=== PATIENT | female | born 1930 | race Two or more races ===

== ENCOUNTER 2017-08-07 16:57 | Inpatient (IN) | payer MEDICAID, MEDICARE ==
[~2017-08-07] VITALS: Ht 149.9 cm; Wt 67.1 kg
[2017-08-07 18:24] VITALS: BP 167/58
--- NOTE | 2017-08-07 18:25 | Emergency Room Report ---
History of Present Illness General Chief Complaint: Flu Like Symptoms Source: Patient, Family Member Present Illness HPI 86-year-old female, history of diabetes, hypertension, dementia, presenting with one week of cough and generalized weakness. History is mostly obtained by daughter at bedside. Sick the patient not eating much. Has had a cough productive with yellow sputum. Allergies: Coded Allergies: No Known Allergies (Unverified , 08/07/17) Patient History Past Medical History: see triage record Past Surgical History: none Pertinent Family History: none Reviewed Nursing Documentation: PMH: Agreed, PSxH: Agreed Nursing Documentation-PMH Past Medical History: No History, Except For Hx Hypertension: Yes Hx Diabetes: Yes Review of Systems All Other Systems: negative except mentioned in HPI Physical Exam Vital Signs Date Time Temp Pulse Resp B/P (MAP) Pulse Ox O2 Delivery O2 Flow Rate FiO2 08/07/17 17:06 97.9 90 18 135/79 90 Room Air Sp02 EP Interpretation: abnormal General Appearance: alert, GCS 15, non-toxic, mild distress Head: normocephalic, atraumatic Eyes: bilateral eye normal inspection, bilateral eye PERRL, bilateral eye EOMI ENT: normal ENT inspection, normal pharynx, normal voice, moist mucus membranes Neck: normal inspection, full range of motion, supple Respiratory: no retraction, respiratory distress, speaking full sentences, other - +rhonchi b/l, chest symmetrical Cardiovascular #1: normal inspection, regular rate, rhythm, no edema, normal capillary refill Cardiovascular #2: 2+ radial (R), 2+ radial (L) Gastrointestinal: normal inspection, non tender, soft, non-distended, no guarding Musculoskeletal: normal inspection, back normal, normal range of motion, non- tender Neurologic: normal inspection, alert, oriented x3, responsive, motor strength/ tone normal, sensory intact, speech normal Psychiatric: other - dementia Skin: normal inspection, normal color, no rash, warm/dry, well hydrated, normal turgor Medical Decision Making Diagnostic Impression: Primary Impression: Influenza-like symptoms Additional Impressions: Pneumonia Hypoxia ER Course 86-year-old female with fever chills cough for one week DDX: Viral URI vs. pneumonia Plan: Labs, chest x-ray ER course: Continues to be in mild/moderate respiratory distress. hypoxic on RA 90 given IV abx for possible pna cannot r/o L side lactic acid elevated. cannot give full boluses due to unknown heart fxn Disposition: Patient is to be admitted to med-surg unit. D/w hospitalist. Dr Hoffman EKG Diagnostic Results EP Interpretation: Yes Rate: normal Rhythm: NSR ST Segments: T-wave inversions noted in lead V2 and aVL ASA given to patient: No Rhythm Strip EP Interpretation: Yes Rate: 80 Rhythm: NSR, no PVCs, no ectopy Chest X-ray CXR: Ordered: Yes 1 view Indication: SOB EP interpretation: Yes Interpretation: Cardiomegaly, no definite infiltrate noted however cannot fully evaluate left lung base Impression: Cardiomegaly, cannot exclude left-sided pneumonia Electronically signed by Bill Valero MD Laboratory Tests Test 08/07/17 18:20 White Blood Count 11.5 K/UL (4.8-10.8) H Red Blood Count 4.02 M/UL (4.20-5.40) L Hemoglobin 11.6 G/DL (12.0-16.0) L Hematocrit 36.1 % (37.0-47.0) L Mean Corpuscular Volume 90 FL (80-99) Mean Corpuscular Hemoglobin 28.9 PG (27.0-31.0) Mean Corpuscular Hemoglobin Concent 32.2 G/DL (32.0-36.0) Red Cell Distribution Width 12.6 % (11.6-14.8) Platelet Count 272 K/UL (150-450) Mean Platelet Volume 5.4 FL (6.5-10.1) L Neutrophils (%) (Auto) 68.0 % (45.0-75.0) Lymphocytes (%) (Auto) 22.6 % (20.0-45.0) Monocytes (%) (Auto) 5.6 % (1.0-10.0) Eosinophils (%) (Auto) 2.3 % (0.0-3.0) Basophils (%) (Auto) 1.5 % (0.0-2.0) Sodium Level 140 MMOL/L (136-145) Potassium Level 4.5 MMOL/L (3.5-5.1) Chloride Level 104 MMOL/L (98-107) Carbon Dioxide Level 25 MMOL/L (21-32) Anion Gap 11 mmol/L (5-15) Blood Urea Nitrogen 16 mg/dL (7-18) Creatinine 1.5 MG/DL (0.55-1.30) H Estimate Glomerular Filtration Rate mL/min (>60) Glucose Level 155 MG/DL (74-106) H Lactic Acid Level 3.10 mmol/L (0.66-2.22) H Calcium Level 9.0 MG/DL (8.5-10.1) Total Bilirubin 0.2 MG/DL (0.2-1.0) Aspartate Amino Transferase (AST) 23 U/L (15-37) Alanine Aminotransferase (ALT) 16 U/L (12-78) Alkaline Phosphatase 90 U/L (46-116) Troponin I 0.014 ng/mL (0.000-0.056) Pro-B-Type Natriuretic Peptide 358 pg/mL (0-125) H Total Protein 7.7 G/DL (6.4-8.2) Albumin 2.7 G/DL (3.4-5.0) L Globulin 5.0 g/dL Albumin/Globulin Ratio 0.5 (1.0-2.7) L Microbiology Date/Time Source Procedure Growth Status 08/07/17 18:57 Nasal Nares Influenza Types A,B Antigen (NABEEL) - Final Complete Last Vital Signs Date Time Temp Pulse Resp B/P (MAP) Pulse Ox O2 Delivery O2 Flow Rate FiO2 08/07/17 17:06 97.9 90 18 135/79 90 Room Air Disposition: ADMITTED INPATIENT Condition: Serious Bill Valero M.D. Aug 07, 2017 18:25
[2017-08-07 18:43] LABS: BASOPHILS % (AUTO) 1.5 % (0.0-2.0); EOSINOPHILS % (AUTO) 2.3 % (0.0-3.0); HEMATOCRIT 36.1 % (37.0-47.0); HEMOGLOBIN 11.6 G/DL (12.0-16.0); LYMPHOCYTES % (AUTO) 22.6 % (20.0-45.0); MEAN CORPUSCULAR VOLUME 90 FL (80-99); MONOCYTES % (AUTO) 5.6 % (1.0-10.0); PLATELET COUNT 272 K/UL (150-450); RED BLOOD COUNT 4.02 M/UL (4.20-5.40); RED CELL DISTRIBUTION WIDTH 12.6 % (11.6-14.8); WHITE BLOOD COUNT 11.5 K/UL (4.8-10.8)
[2017-08-07 18:47] LABS: ANION GAP 11 mmol/L (5-15); BLOOD UREA NITROGEN 16 mg/dL (7-18); CARBON DIOXIDE 25 MMOL/L (21-32); CHLORIDE 104 MMOL/L (98-107); CREATININE 1.5 MG/DL (0.55-1.30); POTASSIUM 4.5 MMOL/L (3.5-5.1); SODIUM 140 MMOL/L (136-145)
[2017-08-07 18:57] LABS: ALANINE AMINOTRANSFERASE 16 U/L (12-78); ALBUMIN 2.7 G/DL (3.4-5.0); ALBUMIN/GLOBULIN RATIO 0.5 (1.0-2.7); ALKALINE PHOSPHATASE 90 U/L (46-116); ASPARTATE AMINO TRANSFERASE 23 U/L (15-37); BILIRUBIN,TOTAL 0.2 MG/DL (0.2-1.0)
[2017-08-07] MEDS ORDERED: Sodium Chloride 500ML 550 ML IV SCH (19:00)
[2017-08-07 20:00] VITALS: BP 155/59
[2017-08-07] MEDS ORDERED: METFORMIN HCL500 M1 ORAL (21:39)
[2017-08-07] MEDS ORDERED: LEVOTHYROXINE50 MCG ORAL (21:39)
[2017-08-07] MEDS ORDERED: LISINOPRIL20 MG ORAL (21:39)
[2017-08-07] MEDS ORDERED: LIPITOR80 MG ORAL (21:39)
[2017-08-07] MEDS ORDERED: RISPERDAL0.25 MG ORAL (21:39)
[2017-08-07] MEDS ORDERED: ALBUTEROL2.5 MG/3 M INH (21:39)
[2017-08-07] MEDS ORDERED: JANUVIA25 MG ORAL (21:39)
[2017-08-07] MEDS ORDERED: SINEMET 25/1001 EA ORAL (21:39)
[2017-08-07] MEDS ORDERED: NAMENDA10 MG ORAL (21:39)
[2017-08-07 21:55] VITALS: BP 138/64
[2017-08-07 22:08] LABS: APPEARANCE,URINE CLEAR; BILIRUBIN, URINE NEGATIVE (NEGATIVE); COLOR,URINE PALE YELLOW; GLUCOSE, URINE (UA) NEGATIVE (NEGATIVE); KETONES,URINE NEGATIVE (NEGATIVE); LEUKOCYTE ESTERASE ,URINE NEGATIVE (NEGATIVE); NITRITE,URINE NEGATIVE (NEGATIVE); PH,URINE 6 (4.5-8.0); PROTEIN,URINE NEGATIVE (NEGATIVE); UROBILINOGEN,URINE NORMAL MG/DL (0.0-1.0)
[2017-08-07 23:00] VITALS: BP 145/63
[2017-08-07] MEDS: Albuterol/Ipratropium 3ml neb HHN SCH (23:00)
[2017-08-07 23:31] VITALS: BP 150/73
[2017-08-08] MEDS: Azithromycin 250mg tab ORAL SCH ×2 (00:49→20:18)
[2017-08-08] MEDS: cefTRIAXone 1 GM in D5W 55 ML IVPB SCH ×2 (01:40→23:17)
--- NOTE | 2017-08-08 03:45 | History and Physical Report ---
DATE OF ADMISSION: 08/07/2017 CHIEF COMPLAINT: Pneumonia. HISTORY OF PRESENT ILLNESS: The patient is an 86-year-old female. She has a history of reactive airway disease, diabetes, and hypertension. She presented with complaints of one week of shortness of breath. According to family members, she has had cough and congestion for approximately last week. She had no fevers or chills, but has had a productive cough. Her shortness of breath did not improve despite breathing treatments at home. On evaluation here in the ER, she had a white count 11,000. X-ray evidence of possible left lower lobe infiltrate. She was hypoxic. The patient has been pancultured and has been started on broad-spectrum IV antibiotic therapy. She is now admitted for further evaluation and care. PAST MEDICAL HISTORY: As above. PAST SURGICAL HISTORY: Includes hernia surgery. CURRENT MEDICATIONS: Reconciled and reviewed. ALLERGIES: None. FAMILY HISTORY: None. SOCIAL HISTORY: Negative for tobacco, ethanol, or drugs. REVIEW OF SYSTEMS: Negative except for cough and shortness of breath. PHYSICAL EXAMINATION: VITAL SIGNS: Temperature 97.9, pulse 78, respirations 19, and blood pressure . GENERAL: The patient is well-developed female in no apparent distress. HEART: Regular rate and rhythm. LUNGS: Significant for bilateral rhonchi and rales. ABDOMEN: Soft, nontender, and nondistended. EXTREMITIES: Without clubbing or cyanosis. LABORATORY AND DIAGNOSTIC DATA: White count was 12,000. Sodium 140, creatinine 1.5. Lactic acid level is 3. Natriuretic peptide was 358. X-ray shows possible left lower lobe infiltrates. ASSESSMENT: This is a pleasant elderly female admitted with complaints of possible community-acquired pneumonia. 1. Pneumonia. 2. Hypoxemia. 3. Possible sepsis. 4. Diabetes. 5. Hypertension. PLAN: 1. IV antibiotics. 2. Supplemental oxygen. 3. Respiratory treatments. 4. Gentle hydration. 5. We will follow up influenza screen. 6. Continue outpatient diabetic and cardiac regimen. Roque Hoffman M.D. DR: [place] JOB#: [id number] CC:
[2017-08-08 04:00] VITALS: BP 137/57
[2017-08-08] MEDS: Albuterol/Ipratropium 3ml neb HHN SCH ×6 (04:50→23:00)
[2017-08-08] MEDS: sitaGLIPtin 25mg tab ORAL SCH (06:04)
[2017-08-08] MEDS: NovoLOG Insulin Flexpen SUBQ SCH ×4 (06:30→20:21)
[2017-08-08 07:36] LABS: BASOPHILS % (AUTO) 0.5 % (0.0-2.0); EOSINOPHILS % (AUTO) 1.5 % (0.0-3.0); HEMATOCRIT 32.2 % (37.0-47.0); LYMPHOCYTES % (AUTO) 23.2 % (20.0-45.0); MEAN CORPUSCULAR VOLUME 89 FL (80-99); MONOCYTES % (AUTO) 5.9 % (1.0-10.0); NEUTROPHILS % (AUTO) 68.9 % (45.0-75.0); PLATELET COUNT 298 K/UL (150-450); RED CELL DISTRIBUTION WIDTH 12.4 % (11.6-14.8); WHITE BLOOD COUNT 13.4 K/UL (4.8-10.8)
[2017-08-08 08:00] VITALS: BP 137/61
[2017-08-08 08:02] LABS: ALANINE AMINOTRANSFERASE 17 U/L (12-78); ALBUMIN 2.6 G/DL (3.4-5.0); ALBUMIN/GLOBULIN RATIO 0.5 (1.0-2.7); ALKALINE PHOSPHATASE 85 U/L (46-116); ANION GAP 8 mmol/L (5-15); ASPARTATE AMINO TRANSFERASE 21 U/L (15-37); BILIRUBIN,TOTAL 0.2 MG/DL (0.2-1.0); BLOOD UREA NITROGEN 15 mg/dL (7-18); CALCIUM 8.7 MG/DL (8.5-10.1); CARBON DIOXIDE 27 MMOL/L (21-32); CHLORIDE 104 MMOL/L (98-107); CREATININE 1.2 MG/DL (0.55-1.30); POTASSIUM 3.6 MMOL/L (3.5-5.1); SODIUM 139 MMOL/L (136-145)
--- NOTE | 2017-08-08 09:18 | General Progress Note ---
Assessment/Plan Problem List: (1) Influenza-like symptoms ICD Codes: R68.89 - Other general symptoms and signs SNOMED: 210420193 (2) Hypoxia ICD Codes: R09.02 - Hypoxemia SNOMED: 055449988 (3) Pneumonia ICD Codes: J18.9 - Pneumonia, unspecified organism SNOMED: 732331600 Status: stable, progressing Assessment/Plan cont abx resp care/o2 diabetes rx bp rx pulm and id eval dvt/stress ulcer prophylaxis Subjective ROS Limited/Unobtainable: No Constitutional: Reports: malaise, weakness HEENT: Reports: no symptoms Cardiovascular: Reports: no symptoms Respiratory: Reports: cough, shortness of breath, sputum, wheezing Gastrointestinal/Abdominal: Reports: no symptoms Genitourinary: Reports: no symptoms Neurologic/Psychiatric: Reports: no symptoms Endocrine: Reports: no symptoms Hematologic/Lymphatic: Reports: no symptoms Allergies: Coded Allergies: No Known Allergies (Unverified , 08/07/17) All Systems: reviewed and negative except above Subjective no overnite events. still congested with some sob. better than last night. no fever or chills. no agitation. Objective Last 24 Hour Vital Signs Date Time Temp Pulse Resp B/P (MAP) Pulse Ox O2 Delivery O2 Flow Rate FiO2 08/08/17 08:00 98.8 73 18 137/61 94 Room Air 08/08/17 04:10 74 16 Room Air 08/08/17 04:00 98.2 78 19 137/57 95 Room Air 08/08/17 03:30 74 16 98 Room Air 08/08/17 03:30 78 20 99 Room Air 21 08/07/17 23:31 98.6 73 16 150/73 94 Room Air 08/07/17 23:10 97.9 71 22 145/63 96 Room Air 08/07/17 23:00 71 22 145/63 96 Room Air 08/07/17 21:55 75 18 138/64 95 Room Air 08/07/17 20:00 77 22 155/59 96 Room Air 08/07/17 18:25 90 18 Room Air 08/07/17 18:24 97.9 78 19 167/58 95 Room Air 08/07/17 17:06 97.9 90 18 135/79 90 Room Air Intake and Output 08/07/17 08/08/17 19:00 07:00 Intake Total 655 ml Balance 655 ml Intake Oral 300 ml IV Total 355 ml # Voids 3 Laboratory Tests 08/07/17 18:20: White Blood Count 11.5H, Red Blood Count 4.02L, Hemoglobin 11.6L, Hematocrit 36.1L, Mean Corpuscular Volume 90, Mean Corpuscular Hemoglobin 28.9, Mean Corpuscular Hemoglobin Concent 32.2, Red Cell Distribution Width 12.6, Platelet Count 272, Mean Platelet Volume 5.4L, Neutrophils (%) (Auto) 68.0, Lymphocytes ( %) (Auto) 22.6, Monocytes (%) (Auto) 5.6, Eosinophils (%) (Auto) 2.3, Basophils (%) (Auto) 1.5, Sodium Level 140, Potassium Level 4.5, Chloride Level 104, Carbon Dioxide Level 25, Anion Gap 11, Blood Urea Nitrogen 16, Creatinine 1.5H, Estimat Glomerular Filtration Rate , Glucose Level 155H, Lactic Acid Level 3.10H , Calcium Level 9.0, Total Bilirubin 0.2, Aspartate Amino Transf (AST/SGOT) 23, Alanine Aminotransferase (ALT/SGPT) 16, Alkaline Phosphatase 90, Troponin I 0.014, Pro-B-Type Natriuretic Peptide 358H, Total Protein 7.7, Albumin 2.7L, Globulin 5.0, Albumin/Globulin Ratio 0.5L 08/07/17 21:40: Urine Color Pale yellow, Urine Appearance Clear, Urine pH 6, Urine Specific [place] 1.010, Urine Protein Negative, Urine Glucose (UA) Negative, Urine Ketones Negative, Urine Occult Blood Negative, Urine Nitrite Negative, Urine Bilirubin Negative, Urine Urobilinogen Normal, Urine Leukocyte Esterase Negative 08/07/17 23:10: Lactic Acid Level 0.90 08/08/17 05:10: White Blood Count 13.4H, Red Blood Count 3.60L, Hemoglobin 11.0L, Hematocrit 32.2L, Mean Corpuscular Volume 89, Mean Corpuscular Hemoglobin 30.6, Mean Corpuscular Hemoglobin Concent 34.2, Red Cell Distribution Width 12.4, Platelet Count 298, Mean Platelet Volume 5.7L, Neutrophils (%) (Auto) 68.9, Lymphocytes ( %) (Auto) 23.2, Monocytes (%) (Auto) 5.9, Eosinophils (%) (Auto) 1.5, Basophils (%) (Auto) 0.5, Sodium Level 139, Potassium Level 3.6, Chloride Level 104, Carbon Dioxide Level 27, Anion Gap 8, Blood Urea Nitrogen 15, Creatinine 1.2, Estimat Glomerular Filtration Rate , Glucose Level 111H, Calcium Level 8.7, Total Bilirubin 0.2, Aspartate Amino Transf (AST/SGOT) 21, Alanine Aminotransferase (ALT/SGPT) 17, Alkaline Phosphatase 85, Total Protein 7.4, Albumin 2.6L, Globulin 4.8, Albumin/Globulin Ratio 0.5L Height (Feet): 4 Height (Inches): 11.00 Weight (Pounds): 148 General Appearance: WD/WN, alert Neck: supple Cardiovascular: normal peripheral pulses, normal rate, regular rhythm Respiratory/Chest: rhonchi - bilaterally Abdomen: normal bowel sounds, non tender, soft, no organomegaly Edema: no edema noted Arm (L), no edema noted Arm (R), no edema noted Leg (L), no edema noted Leg (R), no edema noted Pedal (L), no edema noted Pedal (R), no edema noted 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
[2017-08-08] MEDS: Memantine 10mg tab ORAL SCH ×2 (09:47→17:45)
[2017-08-08] MEDS: Lisinopril 20mg tab ORAL SCH (09:48)
[2017-08-08] MEDS: Levodopa/Carbidopa 10/100 tab ORAL SCH ×3 (09:55→17:45)
--- NOTE | 2017-08-08 10:27 | Diagnostic Imaging Report ---
Indication: Shortness of breath Technique: XRAY Chest 1v Comparison: 06/02/2011 Findings: Heart is enlarged. Aorta is ectatic and calcified. There is slight haziness of the pulmonary vascularity, possibly suggesting interstitial edema/fluid overload. There is biapical scarring, right greater than left. Possible scarring and traction bronchiectasis in the right upper lobe, similar to prior exam. There is patchy retrocardiac opacity which may be related to atelectasis. No large pleural effusion. No pneumothorax. Impression: Cardiomegaly and mild interstitial opacification/edema. Patchy retrocardiac atelectasis versus infiltrate. Follow-up exam recommended. Finding obtained via the emergency department however patient admitted to the hospital at time of dictation of final report.
[2017-08-08 11:58] VITALS: BP 130/68
--- NOTE | 2017-08-08 13:05 | Consultation ---
Consult Note Consult Note 86-year-old female with a history of reactive airway presented with complaints of one week of shortness of breath. According to family members, she has had cough and congestion with a productive cough. Her shortness of breath did not improve with home management. In the ER, she had a white count 11,000. Chest X-ray was notable for possible left lower lobe infiltrate. She was hypoxic and now admitted for further evaluation and care. PAST MEDICAL HISTORY: DM, HTN PAST SURGICAL HISTORY: Hernia surgery. CURRENT MEDICATIONS: reviewed. ALLERGIES: None. FAMILY HISTORY: None. SOCIAL HISTORY: Negative for tobacco, ethanol, or drugs. REVIEW OF SYSTEMS: reviewed PHYSICAL WDWN NAD clear breath sounds bilaterally without rhonchi or wheeze [id number] without MRG NABS nontender no HSM no CCE nonfocal Last 24 Hour Vital Signs Date Time Temp Pulse Resp B/P (MAP) Pulse Ox O2 Delivery O2 Flow Rate FiO2 08/08/17 11:58 98.4 83 20 130/68 95 Room Air 08/08/17 11:40 Room Air 21 08/08/17 11:40 78 16 98 Room Air 21 08/08/17 08:42 76 16 98 Room Air 21 08/08/17 08:00 98.8 73 18 137/61 94 Room Air 08/08/17 04:10 74 16 Room Air 21 08/08/17 04:00 98.2 78 19 137/57 95 Room Air 08/08/17 03:30 74 16 98 Room Air 21 08/08/17 03:30 78 20 99 Room Air 21 08/07/17 23:31 98.6 73 16 150/73 94 Room Air 08/07/17 23:10 97.9 71 22 145/63 96 Room Air 08/07/17 23:00 71 22 145/63 96 Room Air 08/07/17 21:55 75 18 138/64 95 Room Air 08/07/17 20:00 77 22 155/59 96 Room Air 08/07/17 18:25 90 18 Room Air 08/07/17 18:24 97.9 78 19 167/58 95 Room Air 08/07/17 17:06 97.9 90 18 135/79 90 Room Air Laboratory Tests Test 08/07/17 18:20 08/07/17 21:40 08/07/17 23:10 08/08/17 05:10 White Blood Count 11.5 K/UL (4.8-10.8) H 13.4 K/UL (4.8-10.8) H Red Blood Count 4.02 M/UL (4.20-5.40) L 3.60 M/UL (4.20-5.40) L Hemoglobin 11.6 G/DL (12.0-16.0) L 11.0 G/DL (12.0-16.0) L Hematocrit 36.1 % (37.0-47.0) L 32.2 % (37.0-47.0) L Mean Corpuscular Volume 90 FL (80-99) 89 FL (80-99) Mean Corpuscular Hemoglobin 28.9 PG (27.0-31.0) 30.6 PG (27.0-31.0) Mean Corpuscular Hemoglobin Concent 32.2 G/DL (32.0-36.0) 34.2 G/DL (32.0-36.0) Red Cell Distribution Width 12.6 % (11.6-14.8) 12.4 % (11.6-14.8) Platelet Count 272 K/UL (150-450) 298 K/UL (150-450) Mean Platelet Volume 5.4 FL (6.5-10.1) L 5.7 FL (6.5-10.1) L Neutrophils (%) (Auto) 68.0 % (45.0-75.0) 68.9 % (45.0-75.0) Lymphocytes (%) (Auto) 22.6 % (20.0-45.0) 23.2 % (20.0-45.0) Monocytes (%) (Auto) 5.6 % (1.0-10.0) 5.9 % (1.0-10.0) Eosinophils (%) (Auto) 2.3 % (0.0-3.0) 1.5 % (0.0-3.0) Basophils (%) (Auto) 1.5 % (0.0-2.0) 0.5 % (0.0-2.0) Sodium Level 140 MMOL/L (136-145) 139 MMOL/L (136-145) Potassium Level 4.5 MMOL/L (3.5-5.1) 3.6 MMOL/L (3.5-5.1) Chloride Level 104 MMOL/L (98-107) 104 MMOL/L (98-107) Carbon Dioxide Level 25 MMOL/L (21-32) 27 MMOL/L (21-32) Anion Gap 11 mmol/L (5-15) 8 mmol/L (5-15) Blood Urea Nitrogen 16 mg/dL (7-18) 15 mg/dL (7-18) Creatinine 1.5 MG/DL (0.55-1.30) H 1.2 MG/DL (0.55-1.30) Estimat Glomerular Filtration Rate mL/min (>60) mL/min (>60) Glucose Level 155 MG/DL (74-106) H 111 MG/DL (74-106) H Lactic Acid Level 3.10 mmol/L (0.66-2.22) H 0.90 mmol/L (0.66-2.22) Calcium Level 9.0 MG/DL (8.5-10.1) 8.7 MG/DL (8.5-10.1) Total Bilirubin 0.2 MG/DL (0.2-1.0) 0.2 MG/DL (0.2-1.0) Aspartate Amino Transf (AST/SGOT) 23 U/L (15-37) 21 U/L (15-37) Alanine Aminotransferase (ALT/SGPT) 16 U/L (12-78) 17 U/L (12-78) Alkaline Phosphatase 90 U/L (46-116) 85 U/L (46-116) Troponin I 0.014 ng/mL (0.000-0.056) Pro-B-Type Natriuretic Peptide 358 pg/mL (0-125) H Total Protein 7.7 G/DL (6.4-8.2) 7.4 G/DL (6.4-8.2) Albumin 2.7 G/DL (3.4-5.0) L 2.6 G/DL (3.4-5.0) L Globulin 5.0 g/dL 4.8 g/dL Albumin/Globulin Ratio 0.5 (1.0-2.7) L 0.5 (1.0-2.7) L Urine Color Pale yellow Urine Appearance Clear Urine pH 6 (4.5-8.0) Urine Specific [place] 1.010 (1.005-1.035) Urine Protein Negative (NEGATIVE) Urine Glucose (UA) Negative (NEGATIVE) Urine Ketones Negative (NEGATIVE) Urine Occult Blood Negative (NEGATIVE) Urine Nitrite Negative (NEGATIVE) Urine Bilirubin Negative (NEGATIVE) Urine Urobilinogen Normal MG/DL (0.0-1.0) Urine Leukocyte Esterase Negative (NEGATIVE) IMPRESSION pneumonia bronchospasm, acute diabetes hypertension possible pulmonary edema leukocytosis possible sepsis anemia PLAN care noted IV antibiotics respiratory care supportive care suction as needed oxygen therapy follow up imaging impression, plan, and exam edited and reviewed in detail care discussed with SHANNAN HANEY Aug 08, 2017 13:05
[2017-08-08 16:00] VITALS: BP 146/68
[2017-08-08] MEDS: metFORMIN 500mg tab ORAL SCH (17:05)
[2017-08-08 19:46] VITALS: BP 155/71
[2017-08-08] MEDS: Heparin 5000 units/ml inj SUBQ SCH (23:18)
[2017-08-09] VITALS: BP 148/75
[2017-08-09] MEDS: Albuterol/Ipratropium 3ml neb HHN SCH ×6 (03:00→22:37)
[2017-08-09 04:00] VITALS: BP 140/68
[2017-08-09] MEDS: sitaGLIPtin 25mg tab ORAL SCH (06:30)
[2017-08-09] MEDS: NovoLOG Insulin Flexpen SUBQ SCH ×4 (06:39→21:19)
[2017-08-09 08:05] VITALS: BP 131/55
[2017-08-09] MEDS: Levodopa/Carbidopa 10/100 tab ORAL SCH ×3 (08:32→17:35)
[2017-08-09] MEDS: Heparin 5000 units/ml inj SUBQ SCH ×2 (08:35→21:19)
[2017-08-09] MEDS: metFORMIN 500mg tab ORAL SCH ×2 (08:40→17:35)
[2017-08-09] MEDS: Memantine 10mg tab ORAL SCH ×2 (08:42→17:35)
[2017-08-09] MEDS: Lisinopril 20mg tab ORAL SCH (08:42)
--- NOTE | 2017-08-09 08:44 | General Progress Note ---
Assessment/Plan Problem List: (1) Influenza-like symptoms ICD Codes: R68.89 - Other general symptoms and signs SNOMED: 643893306 (2) Hypoxia ICD Codes: R09.02 - Hypoxemia SNOMED: 383564553 (3) Pneumonia ICD Codes: J18.9 - Pneumonia, unspecified organism SNOMED: 208963669 Status: stable, progressing Assessment/Plan cont abx resp care/o2 add iv solumdedrol diabetes rx bp rx repeat cxr dvt/stress ulcer prophylaxis Subjective ROS Limited/Unobtainable: No Constitutional: Reports: malaise, weakness HEENT: Reports: no symptoms Cardiovascular: Reports: no symptoms Respiratory: Reports: cough Gastrointestinal/Abdominal: Reports: no symptoms Genitourinary: Reports: no symptoms Neurologic/Psychiatric: Reports: pre-existing deficit Endocrine: Reports: no symptoms Hematologic/Lymphatic: Reports: no symptoms Allergies: Coded Allergies: No Known Allergies (Unverified , 08/07/17) All Systems: reviewed and negative except above Subjective no overnite events. still congested with some sob. better than last night. no fever or chills. no agitation. Objective Last 24 Hour Vital Signs Date Time Temp Pulse Resp B/P (MAP) Pulse Ox O2 Delivery O2 Flow Rate FiO2 08/09/17 08:05 97.5 61 18 131/55 95 08/09/17 04:00 97.5 63 20 140/68 94 08/09/17 03:56 Room Air 08/09/17 03:56 Room Air 21 08/09/17 00:00 97.9 75 20 148/75 95 Room Air 08/08/17 23:46 Room Air 08/08/17 23:46 Room Air 21 08/08/17 21:17 Room Air 21 08/08/17 21:16 Room Air 08/08/17 19:46 98.1 79 18 155/71 96 08/08/17 16:00 98.2 76 18 146/68 92 Room Air 08/08/17 15:30 Room Air 21 08/08/17 15:30 Room Air 21 08/08/17 11:58 98.4 83 20 130/68 95 Room Air 08/08/17 11:40 Room Air 21 08/08/17 11:40 78 16 98 Room Air 21 Intake and Output 08/08/17 08/09/17 19:00 07:00 Intake Total 675 ml 805 ml Balance 675 ml 805 ml Intake Oral 600 ml 300 ml IV Total 75 ml 505 ml # Voids 6 3 # Bowel Movements 4 2 Laboratory Tests 08/09/17 05:20: Pro-B-Type Natriuretic Peptide 604H Height (Feet): 4 Height (Inches): 11.00 Weight (Pounds): 148 Objective General Appearance: WD/WN, alert Neck: supple Cardiovascular: normal peripheral pulses, normal rate, regular rhythm Respiratory/Chest: rhonchi - bilaterally Abdomen: normal bowel sounds, non tender, soft, no organomegaly Edema: no edema noted Arm (L), no edema noted Arm (R), no edema noted Leg (L), no edema noted Leg (R), no edema noted Pedal (L), no edema noted Pedal (R), no edema noted 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
--- NOTE | 2017-08-09 08:47 | Pulmonology Progress Note ---
Assessment/Plan Assessment/Plan IMPRESSION pneumonia bronchospasm, acute diabetes hypertension possible pulmonary edema leukocytosis possible sepsis anemia PLAN care noted and reviewed IV antibiotics respiratory care supportive care suction as needed oxygen therapy follow up imaging for change and improvement impression, plan, and exam edited and reviewed in detail care discussed with RN Subjective Allergies: Coded Allergies: No Known Allergies (Unverified , 08/07/17) Subjective events reviewed and discussed mild congestion noted Objective Last 24 Hour Vital Signs Date Time Temp Pulse Resp B/P (MAP) Pulse Ox O2 Delivery O2 Flow Rate FiO2 08/09/17 08:42 131/55 08/09/17 08:05 97.5 61 18 131/55 95 08/09/17 04:00 97.5 63 20 140/68 94 08/09/17 03:56 Room Air 08/09/17 03:56 Room Air 21 08/09/17 00:00 97.9 75 20 148/75 95 Room Air 08/08/17 23:46 Room Air 08/08/17 23:46 Room Air 21 08/08/17 21:17 Room Air 21 08/08/17 21:16 Room Air 08/08/17 19:46 98.1 79 18 155/71 96 08/08/17 16:00 98.2 76 18 146/68 92 Room Air 08/08/17 15:30 Room Air 21 08/08/17 15:30 Room Air 21 08/08/17 11:58 98.4 83 20 130/68 95 Room Air 08/08/17 11:40 Room Air 21 08/08/17 11:40 78 16 98 Room Air 21 Intake and Output 08/08/17 08/09/17 19:00 07:00 Intake Total 675 ml 805 ml Balance 675 ml 805 ml Intake Oral 600 ml 300 ml IV Total 75 ml 505 ml # Voids 6 3 # Bowel Movements 4 2 Objective WDWN NAD reduced breath sounds bilaterally with some rhonchi [id number] without MRG NABS nontender no HSM no CC trace edema reduced LOC nonfocal Microbiology Date/Time Source Procedure Growth Status 08/07/17 18:20 Blood Blood Culture - Preliminary NO GROWTH AFTER 24 HOURS Resulted 08/07/17 18:10 Blood Blood Culture - Preliminary NO GROWTH AFTER 24 HOURS Resulted 08/07/17 18:57 Nasal Nares Influenza Types A,B Antigen (NABEEL) - Final Complete Laboratory Tests 08/09/17 05:20: Pro-B-Type Natriuretic Peptide 604H Current Medications Medications (Trade) Dose Ordered Sig/Delores Route PRN Reason Start Time Stop Time Status Last Admin Dose Admin Albuterol/ Ipratropium (Albuterol/ Ipratropium) 3 ml Q4HRT HHN 08/07/17 23:00 08/12/17 22:59 08/08/17 04:50 Azithromycin (Zithromax) 250 mg QHS ORAL 08/07/17 23:00 08/14/17 22:59 08/08/17 20:18 Carbidopa/Levodopa (Sinemet 10/100) 1 ea THREE TIMES A DAY ORAL 08/08/17 09:00 09/07/17 08:59 08/09/17 08:39 Ceftriaxone Sodium 1 gm/ Dextrose 55 ml @ 110 mls/hr Q24H IVPB 08/07/17 23:00 08/14/17 22:59 08/08/17 23:17 Dextrose (Dextrose 50%) STAT PRN IV Hypoglycemia 08/07/17 21:15 09/06/17 21:14 Heparin Sodium (Porcine) (Heparin 5000 units/ml) 5,000 units EVERY 12 HOURS SUBQ 08/08/17 23:00 09/07/17 22:59 08/09/17 08:35 Insulin Aspart (NovoLOG) BEFORE MEALS AND HS SUBQ 08/08/17 06:30 09/07/17 06:29 08/09/17 06:39 Levothyroxine Sodium (Synthroid) 50 mcg DAILY@0630 ORAL 08/08/17 06:30 09/07/17 06:29 08/09/17 06:30 Lisinopril (Prinivil) 20 mg DAILY ORAL 08/08/17 09:00 09/07/17 08:59 08/09/17 08:42 Memantine (Namenda) 10 mg BID ORAL 08/08/17 09:00 09/07/17 08:59 08/09/17 08:42 Metformin HCl (Glucophage) 500 mg BID ORAL 08/08/17 18:00 09/07/17 17:59 08/09/17 08:40 Risperidone (RisperDAL) 0.5 mg BID ORAL 08/08/17 09:00 09/07/17 08:59 08/09/17 08:39 Sitagliptin Phosphate (Januvia) 25 mg ACBREAKFAST ORAL 08/08/17 06:30 09/07/17 06:29 08/09/17 06:30 SHANNAN WALKER Aug 09, 2017 08:47
--- NOTE | 2017-08-09 10:01 | Diagnostic Imaging Report ---
Indication: Shortness of breath Technique: XRAY Chest 1v Comparison: 08/07/2017 Findings: Stable cardiomegaly. There is mild haziness of the pulmonary vascularity suggesting interstitial edema/fluid overload. These findings may be exaggerated by low lung volumes. There is biapical pleural scarring. There is unchanged right suprahilar opacity/scarring. Previous retrocardiac opacities are decreased. No new focal airspace consolidation. Impression: Cardiomegaly and mild interstitial opacification/edema. Resolution of previously seen retrocardiac opacities likely related to improved subsegmental atelectasis. Streaky opacities with suggestion of bronchiectasis in the suprahilar right medial lung. This may related to scarring and appears unchanged when compared to 06/02/2011. No new focal consolidation.
[2017-08-09 12:00] VITALS: BP 121/58
[2017-08-09 16:00] VITALS: BP 130/61
[2017-08-09] MEDS: Solu-MEDROL 40mg Inj IVP SCH ×2 (17:30→17:43)
--- NOTE | 2017-08-09 18:08 | Cardiology Report ---
APPROVED REPORT EXAM: Two-dimensional and M-mode echocardiogram with Doppler and color Doppler. INDICATION A FLUTTER M-Mode DIMENSIONS IVSd1.2 (0.7-1.1cm)Left Atrium (MM)3.7 (1.6-4.0cm) LVDd4.7 (3.5-5.6cm)Aortic Root3.2 (2.0-3.7cm) PWd1.4 (0.7-1.1cm)Aortic Cusp Exc.1.6 (1.5-2.0cm) IVSs2.1 cm LVDs2.7 (2.5-4.0cm) PWs1.9 cm Normal left ventricular chamber size, systolic function and wall motion. Left ventricular ejection fraction estimated to be 65- 70%. Mild left ventricular hypertrophy by 2-D. No evidence of pericardial effusion. All other cardiac chamber sizes are within normal limits. Focal aortic valve sclerosis with adequate cusp excursion. Thickened mitral valve leaflets with normal excursion. Mitral annulus and aortic root calcification. Pulmonic valve not well visualized. Normal tricuspid valve structure. IVC at normal size without physiologic collapse. A color flow and spectral Doppler study was performed and revealed: Mild aortic regurgitation. Trace mitral regurgitation. Mitral diastolic velocities suggest reduced left ventricular relaxation c/w mild LV diastolic dysfunction (Grade I ). Trace tricuspid regurgitation. Tricuspid systolic velocities suggests peak right ventricular systolic pressure of 19 mmHg. No Pulmonic regurgitation present.
[2017-08-09 20:00] VITALS: BP 152/71
[2017-08-09] MEDS ORDERED: Tubing IV Secondary IV ONE (20:57)
[2017-08-09] MEDS: Azithromycin 250mg tab ORAL SCH (21:18)
--- NOTE | 2017-08-09 21:30 | Consultation ---
DATE OF CONSULTATION: 08/09/2017 INFECTIOUS DISEASE CONSULTATION This consult is for coverage of Dr. Mosley. REASON FOR CONSULT: Pneumonia. HISTORY OF PRESENT ILLNESS: This is an 86-year-old female admitted on 08/07/2017 coming from home complaining of cough, weakness, decreased p.o. intake., and had mild leukocytosis. According to the family, all members of family got flu like disease last week. PAST MEDICAL HISTORY: Significant for diabetes mellitus type 2, on oral hypoglycemic agents, hypertension, dementia, and Parkinson. MEDICATION: Getting methylprednisone, heparin, metformin, Risperdal, lisinopril, Sinemet, memantine, Januvia, levothyroxine, ceftriaxone, azithromycin, albuterol, and ipratropium inhaler. ALLERGIES: No known drug allergies. SOCIAL HISTORY: Lives at home with daughter. Originally from [facility]. No history of alcohol, drug abuse, or smoking. REVIEW OF SYSTEMS: Poor historian. Has some coughing. PHYSICAL EXAMINATION: VITAL SIGNS: Temperature 98, pulse 61, and blood pressure 121/58. GENERAL APPEARANCE: No acute distress. HEAD AND NECK: She has denture. No oral lesion. HEART: S1 and S2 regular. LUNGS: Clear. ABDOMEN: Soft and nontender. EXTREMITY: No edema. NEUROLOGIC: Awake and alert. Verbal. LABORATORY DATA: WBC 13.4, hemoglobin 11, hematocrit 32.2, and platelets 289,000. Sodium 139, potassium 3.6, chloride 104, bicarb 27, BUN 15, and creatinine 1.2. Creatinine at the time of admission was 1.5. Lactic acid was 3.1, that decreased to 0.9. The patient has had two chest x-rays. The first one had shown some retrocardiac opacity that has resolved. UA is negative. Influenza A and B antigen were negative. Blood cultures so far are negative. IMPRESSION: Probable community-acquired pneumonia that started after some viral illness in the family. The patient has diabetes mellitus type 2, hypertension, dementia, and Parkinson disease. RECOMMENDATION: We will continue with current antibiotic Rocephin and Zithromax. The patient had pneumonia vaccine and flu vaccine in the past. At the end of my exam, I thank, Dr. Hoffman, for involving me in the care of this patient. Abraham Aragon M.D. DR: LILLY JOB#: [id number] CC: TAWNY
[2017-08-09] MEDS: cefTRIAXone 1 GM in D5W 55 ML IVPB SCH (23:05)
[2017-08-10] VITALS: BP 144/70
[2017-08-10] MEDS: Solu-MEDROL 40mg Inj IVP SCH ×3 (01:46→21:05)
[2017-08-10] MEDS: Albuterol/Ipratropium 3ml neb HHN SCH ×6 (02:59→23:00)
[2017-08-10 04:00] VITALS: BP 148/85
[2017-08-10] MEDS: sitaGLIPtin 25mg tab ORAL SCH (06:30)
[2017-08-10] MEDS: NovoLOG Insulin Flexpen SUBQ SCH ×4 (06:31→22:40)
--- NOTE | 2017-08-10 07:19 | Pulmonology Progress Note ---
Assessment/Plan Assessment/Plan IMPRESSION pneumonia bronchospasm, acute diabetes hypertension possible pulmonary edema leukocytosis possible sepsis anemia PLAN care noted and reviewed IV antibiotics add oxygen cxr reviewed and improved ?diurese respiratory care supportive care suction as needed follow up imaging for change and improvement impression, plan, and exam edited and reviewed in detail care discussed with RN Subjective ROS Limited/Unobtainable: Yes Allergies: Coded Allergies: No Known Allergies (Unverified , 08/07/17) Subjective events reviewed and discussed mild congestion noted desaturating off oxygen Objective Last 24 Hour Vital Signs Date Time Temp Pulse Resp B/P (MAP) Pulse Ox O2 Delivery O2 Flow Rate FiO2 08/10/17 04:00 Nasal Cannula 2.0 08/10/17 04:00 98.4 82 18 148/85 94 08/10/17 02:58 Room Air 21 08/10/17 02:58 Room Air 08/10/17 00:00 Nasal Cannula 2.0 08/10/17 00:00 98.2 87 18 144/70 92 08/09/17 22:37 Room Air 08/09/17 22:37 Room Air 21 08/09/17 21:20 Nasal Cannula 2.0 08/09/17 21:19 Room Air 08/09/17 21:19 Room Air 21 08/09/17 20:00 98.6 76 18 152/71 90 08/09/17 16:00 98.1 68 18 130/61 96 08/09/17 14:15 Room Air 21 08/09/17 14:15 Room Air 08/09/17 12:00 98.0 61 18 121/58 92 08/09/17 11:30 Room Air 21 08/09/17 11:30 Room Air 08/09/17 08:42 131/55 08/09/17 08:14 Room Air 21 08/09/17 08:14 Room Air 08/09/17 08:05 97.5 61 18 131/55 95 Intake and Output 08/09/17 08/10/17 19:00 07:00 Intake Total 55 ml Balance 55 ml IV Total 55 ml # Voids 3 # Bowel Movements 1 Objective WDWN NAD reduced breath sounds bilaterally with persistent rhonchi [id number] without MRG NABS nontender no HSM no CC trace edema reduced LOC nonfocal Microbiology Date/Time Source Procedure Growth Status 1/13/18 18:20 Blood Blood Culture - Preliminary NO GROWTH AFTER 48 HOURS Resulted 08/07/17 18:10 Blood Blood Culture - Preliminary NO GROWTH AFTER 48 HOURS Resulted 08/07/17 18:57 Nasal Nares Influenza Types A,B Antigen (NABEEL) - Final Complete Laboratory Tests 08/10/17 05:10: White Blood Count [Pending], Red Blood Count [Pending], Hemoglobin [Pending], Hematocrit [Pending], Mean Corpuscular Volume [Pending], Mean Corpuscular Hemoglobin [Pending], Mean Corpuscular Hemoglobin Concent [Pending], Red Cell Distribution Width [Pending], Platelet Count [Pending], Mean Platelet Volume [ Pending], Neutrophils (%) (Auto) [Pending], Lymphocytes (%) (Auto) [Pending], Monocytes (%) (Auto) [Pending], Eosinophils (%) (Auto) [Pending], Basophils (%) (Auto) [Pending], Sodium Level [Pending], Potassium Level [Pending], Chloride Level [Pending], Carbon Dioxide Level [Pending], Blood Urea Nitrogen [Pending], Creatinine [Pending], Estimat Glomerular Filtration Rate [Pending], Glucose Level [Pending], Calcium Level [Pending], Total Bilirubin [Pending], Aspartate Amino Transf (AST/SGOT) [Pending], Alanine Aminotransferase (ALT/SGPT) [Pending] , Alkaline Phosphatase [Pending], Total Protein [Pending], Albumin [Pending], Globulin [Pending] Current Medications Medications (Trade) Dose Ordered Sig/Delores Route PRN Reason Start Time Stop Time Status Last Admin Dose Admin Albuterol/ Ipratropium (Albuterol/ Ipratropium) 3 ml Q4HRT HHN 08/07/17 23:00 08/12/17 22:59 08/08/17 04:50 Azithromycin (Zithromax) 250 mg QHS ORAL 08/07/17 23:00 08/14/17 22:59 08/09/17 21:18 Carbidopa/Levodopa (Sinemet 10/100) 1 ea THREE TIMES A DAY ORAL 08/08/17 09:00 09/07/17 08:59 08/09/17 17:35 Ceftriaxone Sodium 1 gm/ Dextrose 55 ml @ 110 mls/hr Q24H IVPB 08/07/17 23:00 08/14/17 22:59 08/09/17 23:05 Dextrose (Dextrose 50%) STAT PRN IV Hypoglycemia 08/07/17 21:15 09/06/17 21:14 Heparin Sodium (Porcine) (Heparin 5000 units/ml) 5,000 units EVERY 12 HOURS SUBQ 08/08/17 23:00 09/07/17 22:59 08/09/17 21:19 Insulin Aspart (NovoLOG) BEFORE MEALS AND HS SUBQ 08/08/17 06:30 09/07/17 06:29 08/10/17 06:31 Levothyroxine Sodium (Synthroid) 50 mcg DAILY@0630 ORAL 08/08/17 06:30 09/07/17 06:29 08/10/17 06:30 Lisinopril (Prinivil) 20 mg DAILY ORAL 08/08/17 09:00 09/07/17 08:59 08/09/17 08:42 Memantine (Namenda) 10 mg BID ORAL 08/08/17 09:00 09/07/17 08:59 08/09/17 17:35 Metformin HCl (Glucophage) 500 mg BID ORAL 08/08/17 18:00 09/07/17 17:59 08/09/17 17:35 Methylprednisolone Sodium Succinate (Solu-MEDROL) 40 mg Q8H IVP 08/09/17 09:30 09/08/17 09:29 08/10/17 01:46 Risperidone (RisperDAL) 0.5 mg BID ORAL 08/08/17 09:00 09/07/17 08:59 08/09/17 08:39 Sitagliptin Phosphate (Januvia) 25 mg ACBREAKFAST ORAL 08/08/17 06:30 09/07/17 06:29 08/10/17 06:30 SHANNAN WALKER Aug 10, 2017 07:19
[2017-08-10 07:24] LABS: HEMATOCRIT 35.8 % (37.0-47.0); HEMOGLOBIN 11.5 G/DL (12.0-16.0); MEAN CORPUSCULAR VOLUME 90 FL (80-99); PLATELET COUNT 302 K/UL (150-450); RED BLOOD COUNT 3.98 M/UL (4.20-5.40); RED CELL DISTRIBUTION WIDTH 12.7 % (11.6-14.8); WHITE BLOOD COUNT 11.5 K/UL (4.8-10.8)
[2017-08-10 08:02] LABS: ALANINE AMINOTRANSFERASE 15 U/L (12-78); ALBUMIN 2.7 G/DL (3.4-5.0); ALBUMIN/GLOBULIN RATIO 0.5 (1.0-2.7); ALKALINE PHOSPHATASE 82 U/L (46-116); ANION GAP 12 mmol/L (5-15); ASPARTATE AMINO TRANSFERASE 15 U/L (15-37); BILIRUBIN,TOTAL 0.2 MG/DL (0.2-1.0); BLOOD UREA NITROGEN 27 mg/dL (7-18); CALCIUM 9.3 MG/DL (8.5-10.1); CARBON DIOXIDE 24 MMOL/L (21-32); CHLORIDE 105 MMOL/L (98-107); CREATININE 1.2 MG/DL (0.55-1.30); POTASSIUM 4.4 MMOL/L (3.5-5.1); SODIUM 141 MMOL/L (136-145)
[2017-08-10 08:08] VITALS: BP 143/63
[2017-08-10] MEDS: metFORMIN 500mg tab ORAL SCH (09:53)
[2017-08-10] MEDS: Memantine 10mg tab ORAL SCH ×2 (09:53→17:17)
[2017-08-10] MEDS: Lisinopril 20mg tab ORAL SCH (09:54)
[2017-08-10] MEDS: Levodopa/Carbidopa 10/100 tab ORAL SCH ×3 (09:54→17:18)
[2017-08-10] MEDS: Heparin 5000 units/ml inj SUBQ SCH ×2 (09:55→21:05)
[2017-08-10 12:00] VITALS: BP 141/68
--- NOTE | 2017-08-10 12:05 | General Progress Note ---
Assessment/Plan Problem List: (1) Influenza-like symptoms ICD Codes: R68.89 - Other general symptoms and signs SNOMED: 273226341 (2) Hypoxia ICD Codes: R09.02 - Hypoxemia SNOMED: 943849819 (3) Pneumonia ICD Codes: J18.9 - Pneumonia, unspecified organism SNOMED: 314946823 Assessment/Plan cont abx resp care/o2 wean iv solumdedrol diabetes rx bp rx repeat cxr lasix x1 dvt/stress ulcer prophylaxis Subjective ROS Limited/Unobtainable: No Constitutional: Reports: malaise, weakness HEENT: Reports: no symptoms Cardiovascular: Reports: no symptoms Respiratory: Reports: cough, sputum, wheezing Gastrointestinal/Abdominal: Reports: no symptoms Genitourinary: Reports: no symptoms Neurologic/Psychiatric: Reports: pre-existing deficit Endocrine: Reports: no symptoms Hematologic/Lymphatic: Reports: anemia Allergies: Coded Allergies: No Known Allergies (Unverified , 08/07/17) All Systems: reviewed and negative except above Subjective no overnite events. less congested. no fevers. cxr improving. Objective Last 24 Hour Vital Signs Date Time Temp Pulse Resp B/P (MAP) Pulse Ox O2 Delivery O2 Flow Rate FiO2 08/10/17 11:53 79 18 97 Nasal Cannula 2.0 28 08/10/17 11:53 28 08/10/17 09:54 143/63 08/10/17 08:08 97.9 77 20 143/63 93 Nasal Cannula 2.0 08/10/17 07:00 79 18 97 Room Air 08/10/17 07:00 Room Air 21 08/10/17 04:00 Nasal Cannula 2.0 08/10/17 04:00 98.4 82 18 148/85 94 08/10/17 02:58 Room Air 21 08/10/17 02:58 Room Air 08/10/17 00:00 Nasal Cannula 2.0 08/10/17 00:00 98.2 87 18 144/70 92 08/09/17 22:37 Room Air 08/09/17 22:37 Room Air 21 08/09/17 21:20 Nasal Cannula 2.0 08/09/17 21:19 Room Air 08/09/17 21:19 Room Air 21 08/09/17 20:00 98.6 76 18 152/71 90 08/09/17 16:00 98.1 68 18 130/61 96 08/09/17 14:15 Room Air 21 08/09/17 14:15 Room Air Intake and Output 08/09/17 08/10/17 19:00 07:00 Intake Total 55 ml Balance 55 ml IV Total 55 ml # Voids 3 # Bowel Movements 1 Laboratory Tests 08/10/17 05:10: White Blood Count 11.5H, Red Blood Count 3.98L, Hemoglobin 11.5L, Hematocrit 35.8L, Mean Corpuscular Volume 90, Mean Corpuscular Hemoglobin 28.9, Mean Corpuscular Hemoglobin Concent 32.1, Red Cell Distribution Width 12.7, Platelet Count 302, Mean Platelet Volume 5.3L, Neutrophils (%) (Auto) , Lymphocytes (%) ( Auto) , Monocytes (%) (Auto) , Eosinophils (%) (Auto) , Basophils (%) (Auto) , Sodium Level 141, Potassium Level 4.4, Chloride Level 105, Carbon Dioxide Level 24, Anion Gap 12, Blood Urea Nitrogen 27H, Creatinine 1.2, Estimat Glomerular Filtration Rate , Glucose Level 180H, Calcium Level 9.3, Total Bilirubin 0.2, Aspartate Amino Transf (AST/SGOT) 15, Alanine Aminotransferase (ALT/SGPT) 15, Alkaline Phosphatase 82, Total Protein 7.7, Albumin 2.7L, Globulin 5.0, Albumin/ Globulin Ratio 0.5L Height (Feet): 4 Height (Inches): 11.00 Weight (Pounds): 148 Objective General Appearance: WD/WN, alert Neck: supple Cardiovascular: normal peripheral pulses, normal rate, regular rhythm Respiratory/Chest: rhonchi - bilaterally Abdomen: normal bowel sounds, non tender, soft, no organomegaly Edema: no edema noted Arm (L), no edema noted Arm (R), no edema noted Leg (L), no edema noted Leg (R), no edema noted Pedal (L), no edema noted Pedal (R), no edema noted 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
--- NOTE | 2017-08-10 14:16 | Infectious Diseases Prog Note ---
Assessment/Plan Assessment/Plan antibiotics : ceftriaxone, azithromycin A 1. pneumonia 2. DM 3. HTN 4. Parkinsons disease P 1. continue ceftriaxone, azithromycin 2. serum legionella Ab 3. mycoplasma serology 4. will follow up cultures Subjective Constitutional: Denies: fever, chills Respiratory: Reports: shortness of breath, productive cough Gastrointestinal/Abdominal: Denies: nausea, vomiting, diarrhea Musculoskeletal: Denies: pain Allergies: Coded Allergies: No Known Allergies (Unverified , 08/07/17) Objective Vital Signs Last 24 Hour Vital Signs Date Time Temp Pulse Resp B/P (MAP) Pulse Ox O2 Delivery O2 Flow Rate FiO2 08/10/17 12:00 98.6 106 21 141/68 93 Nasal Cannula 2.0 08/10/17 11:59 82 18 98 Nasal Cannula 2.0 28 08/10/17 11:53 79 18 97 Nasal Cannula 2.0 28 08/10/17 11:53 28 08/10/17 09:54 143/63 08/10/17 08:08 97.9 77 20 143/63 93 Nasal Cannula 2.0 08/10/17 07:00 79 18 97 Room Air 08/10/17 07:00 Room Air 21 08/10/17 04:00 Nasal Cannula 2.0 08/10/17 04:00 98.4 82 18 148/85 94 08/10/17 02:58 Room Air 21 08/10/17 02:58 Room Air 08/10/17 00:00 Nasal Cannula 2.0 08/10/17 00:00 98.2 87 18 144/70 92 08/09/17 22:37 Room Air 08/09/17 22:37 Room Air 21 08/09/17 21:20 Nasal Cannula 2.0 08/09/17 21:19 Room Air 08/09/17 21:19 Room Air 21 08/09/17 20:00 98.6 76 18 152/71 90 08/09/17 16:00 98.1 68 18 130/61 96 08/09/17 14:15 Room Air 21 08/09/17 14:15 Room Air Height (Feet): 4 Height (Inches): 11.00 Weight (Pounds): 148 Respiratory/Chest: rhonchi - bilaterally Cardiovascular: normal rate, regular rhythm, no gallop/murmur Abdomen: soft, non tender Extremities: no edema Microbiology Date/Time Source Procedure Growth Status 08/07/17 18:20 Blood Blood Culture - Preliminary NO GROWTH AFTER 48 HOURS Resulted 08/07/17 18:10 Blood Blood Culture - Preliminary NO GROWTH AFTER 48 HOURS Resulted 08/10/17 01:50 Sputum Expectorated Gram Stain - Final Resulted 08/10/17 01:50 Sputum Expectorated Sputum Culture Pending Resulted 08/07/17 18:57 Nasal Nares Influenza Types A,B Antigen (NABEEL) - Final Complete Laboratory Tests Test 08/10/17 05:10 White Blood Count 11.5 K/UL (4.8-10.8) H Red Blood Count 3.98 M/UL (4.20-5.40) L Hemoglobin 11.5 G/DL (12.0-16.0) L Hematocrit 35.8 % (37.0-47.0) L Mean Corpuscular Volume 90 FL (80-99) Mean Corpuscular Hemoglobin 28.9 PG (27.0-31.0) Mean Corpuscular Hemoglobin Concent 32.1 G/DL (32.0-36.0) Red Cell Distribution Width 12.7 % (11.6-14.8) Platelet Count 302 K/UL (150-450) Mean Platelet Volume 5.3 FL (6.5-10.1) L Neutrophils (%) (Auto) % (45.0-75.0) Lymphocytes (%) (Auto) % (20.0-45.0) Monocytes (%) (Auto) % (1.0-10.0) Eosinophils (%) (Auto) % (0.0-3.0) Basophils (%) (Auto) % (0.0-2.0) Sodium Level 141 MMOL/L (136-145) Potassium Level 4.4 MMOL/L (3.5-5.1) Chloride Level 105 MMOL/L (98-107) Carbon Dioxide Level 24 MMOL/L (21-32) Anion Gap 12 mmol/L (5-15) Blood Urea Nitrogen 27 mg/dL (7-18) H Creatinine 1.2 MG/DL (0.55-1.30) Estimat Glomerular Filtration Rate mL/min (>60) Glucose Level 180 MG/DL (74-106) H Calcium Level 9.3 MG/DL (8.5-10.1) Total Bilirubin 0.2 MG/DL (0.2-1.0) Aspartate Amino Transf (AST/SGOT) 15 U/L (15-37) Alanine Aminotransferase (ALT/SGPT) 15 U/L (12-78) Alkaline Phosphatase 82 U/L (46-116) Total Protein 7.7 G/DL (6.4-8.2) Albumin 2.7 G/DL (3.4-5.0) L Globulin 5.0 g/dL Albumin/Globulin Ratio 0.5 (1.0-2.7) L CLAUDE CANCINO Aug 10, 2017 14:15
[2017-08-10 16:00] VITALS: BP 141/65
[2017-08-10 20:00] VITALS: BP 126/52
[2017-08-10] MEDS: Azithromycin 250mg tab ORAL SCH (21:05)
[2017-08-10] MEDS: cefTRIAXone 1 GM in D5W 55 ML IVPB SCH (22:34)
[2017-08-11 00:02] VITALS: BP 121/56
[2017-08-11] MEDS: Albuterol/Ipratropium 3ml neb HHN SCH ×6 (03:00→23:00)
[2017-08-11 04:01] VITALS: BP 136/76
[2017-08-11] MEDS: sitaGLIPtin 25mg tab ORAL SCH (06:01)
[2017-08-11] MEDS: NovoLOG Insulin Flexpen SUBQ SCH ×4 (06:04→21:28)
[2017-08-11 08:12] VITALS: BP 141/68
[2017-08-11] MEDS: Solu-MEDROL 40mg Inj IVP SCH (09:08)
[2017-08-11] MEDS: Lisinopril 20mg tab ORAL SCH (09:09)
[2017-08-11] MEDS: Memantine 10mg tab ORAL SCH ×2 (09:09→17:13)
[2017-08-11] MEDS: Heparin 5000 units/ml inj SUBQ SCH ×2 (09:10→21:27)
[2017-08-11] MEDS: Levodopa/Carbidopa 10/100 tab ORAL SCH ×3 (09:11→17:13)
[2017-08-11 10:19] LABS: ALANINE AMINOTRANSFERASE 16 U/L (12-78); ALBUMIN 2.8 G/DL (3.4-5.0); ALBUMIN/GLOBULIN RATIO 0.6 (1.0-2.7); ALKALINE PHOSPHATASE 73 U/L (46-116); ANION GAP 11 mmol/L (5-15); ASPARTATE AMINO TRANSFERASE 15 U/L (15-37); BILIRUBIN,TOTAL 0.2 MG/DL (0.2-1.0); BLOOD UREA NITROGEN 35 mg/dL (7-18); CALCIUM 9.5 MG/DL (8.5-10.1); CARBON DIOXIDE 25 MMOL/L (21-32); CHLORIDE 105 MMOL/L (98-107); CREATININE 1.1 MG/DL (0.55-1.30); POTASSIUM 4.1 MMOL/L (3.5-5.1); SODIUM 141 MMOL/L (136-145)
[2017-08-11 11:53] VITALS: BP 141/81
--- NOTE | 2017-08-11 13:33 | Infectious Diseases Prog Note ---
Assessment/Plan Assessment/Plan antibiotics : ceftriaxone, azithromycin A 1. pneumonia 2. DM 3. HTN 4. Parkinsons disease P 1. continue ceftriaxone, azithromycin 2. will follow up cultures Subjective Constitutional: Denies: fever, chills Respiratory: Reports: shortness of breath, productive cough Gastrointestinal/Abdominal: Denies: nausea, vomiting, diarrhea Musculoskeletal: Denies: pain Allergies: Coded Allergies: No Known Allergies (Unverified , 08/07/17) Objective Vital Signs Last 24 Hour Vital Signs Date Time Temp Pulse Resp B/P (MAP) Pulse Ox O2 Delivery O2 Flow Rate FiO2 08/11/17 11:53 97.6 91 20 141/81 96 08/11/17 11:11 79 18 99 Room Air 21 08/11/17 11:11 77 19 77 Room Air 21 08/11/17 09:09 141/68 08/11/17 08:12 98.0 70 22 141/68 95 08/11/17 08:02 85 18 99 Room Air 21 08/11/17 08:02 84 18 99 Room Air 21 08/11/17 08:02 70 16 96 Room Air 21 08/11/17 04:14 Room Air 08/11/17 04:13 Room Air 08/11/17 04:01 98.2 81 20 136/76 98 08/11/17 04:00 98 Room Air 08/11/17 00:02 98.2 81 20 121/56 98 08/10/17 23:16 Room Air 08/10/17 23:15 81 18 92 Room Air 08/10/17 21:22 Room Air 08/10/17 21:22 81 18 92 Room Air 08/10/17 20:00 98.2 85 20 126/52 96 08/10/17 19:10 2.0 08/10/17 16:00 98.2 106 22 141/65 96 Nasal Cannula 2.0 08/10/17 15:09 99 20 99 Nasal Cannula 2.0 28 08/10/17 15:01 98 20 98 Nasal Cannula 2.0 28 Height (Feet): 4 Height (Inches): 11.00 Weight (Pounds): 148 Respiratory/Chest: rhonchi - bilaterally - decreased Cardiovascular: normal rate, regular rhythm, no gallop/murmur Abdomen: soft, non tender Extremities: no edema Microbiology Date/Time Source Procedure Growth Status 08/10/17 01:50 Sputum Expectorated Gram Stain - Final Resulted 08/10/17 01:50 Sputum Expectorated Sputum Culture - Preliminary NORMAL UPPER RESPIRATORY JOJO PRESENT Resulted Laboratory Tests Test 08/11/17 05:36 Sodium Level 141 MMOL/L (136-145) Potassium Level 4.1 MMOL/L (3.5-5.1) Chloride Level 105 MMOL/L (98-107) Carbon Dioxide Level 25 MMOL/L (21-32) Anion Gap 11 mmol/L (5-15) Blood Urea Nitrogen 35 mg/dL (7-18) H Creatinine 1.1 MG/DL (0.55-1.30) Estimat Glomerular Filtration Rate mL/min (>60) Glucose Level 197 MG/DL (74-106) H Calcium Level 9.5 MG/DL (8.5-10.1) Magnesium Level 1.8 MG/DL (1.8-2.4) Total Bilirubin 0.2 MG/DL (0.2-1.0) Aspartate Amino Transf (AST/SGOT) 15 U/L (15-37) Alanine Aminotransferase (ALT/SGPT) 16 U/L (12-78) Alkaline Phosphatase 73 U/L (46-116) Total Protein 7.5 G/DL (6.4-8.2) Albumin 2.8 G/DL (3.4-5.0) L Globulin 4.7 g/dL Albumin/Globulin Ratio 0.6 (1.0-2.7) L CLAUDE CANCINO Aug 11, 2017 13:33
--- NOTE | 2017-08-11 14:13 | Pulmonology Progress Note ---
Assessment/Plan Assessment/Plan IMPRESSION pneumonia bronchospasm, acute diabetes hypertension possible pulmonary edema leukocytosis possible sepsis anemia PLAN care noted and reviewed IV antibiotics add oxygen repeat cxr dc solumedrol antibiotics keep negative and monitor follow up imaging for change and improvement impression, plan, and exam edited and reviewed in detail care discussed with RN Subjective Allergies: Coded Allergies: No Known Allergies (Unverified , 08/07/17) Subjective events reviewed and discussed some improvement noted Objective Last 24 Hour Vital Signs Date Time Temp Pulse Resp B/P (MAP) Pulse Ox O2 Delivery O2 Flow Rate FiO2 08/11/17 11:53 97.6 91 20 141/81 96 08/11/17 11:11 79 18 99 Room Air 21 08/11/17 11:11 77 19 77 Room Air 21 08/11/17 09:09 141/68 08/11/17 08:12 98.0 70 22 141/68 95 08/11/17 08:02 85 18 99 Room Air 21 08/11/17 08:02 84 18 99 Room Air 21 08/11/17 08:02 70 16 96 Room Air 21 08/11/17 04:14 Room Air 08/11/17 04:13 Room Air 08/11/17 04:01 98.2 81 20 136/76 98 08/11/17 04:00 98 Room Air 08/11/17 00:02 98.2 81 20 121/56 98 08/10/17 23:16 Room Air 08/10/17 23:15 81 18 92 Room Air 08/10/17 21:22 Room Air 08/10/17 21:22 81 18 92 Room Air 08/10/17 20:00 98.2 85 20 126/52 96 08/10/17 19:10 2.0 08/10/17 16:00 98.2 106 22 141/65 96 Nasal Cannula 2.0 08/10/17 15:09 99 20 99 Nasal Cannula 2.0 28 08/10/17 15:01 98 20 98 Nasal Cannula 2.0 28 Intake and Output 08/10/17 08/11/17 19:00 07:00 Intake Total 360 ml Balance 360 ml Intake Oral 360 ml # Voids 4 2 # Bowel Movements 2 Objective WDWN NAD reduced breath sounds bilaterally with some rhonchi [id number] without MRG NABS nontender no HSM no CC trace edema reduced LOC nonfocal Microbiology Date/Time Source Procedure Growth Status 08/10/17 01:50 Sputum Expectorated Gram Stain - Final Resulted 08/10/17 01:50 Sputum Expectorated Sputum Culture - Preliminary NORMAL UPPER RESPIRATORY JOJO PRESENT Resulted Laboratory Tests 08/11/17 05:36: Sodium Level 141, Potassium Level 4.1, Chloride Level 105, Carbon Dioxide Level 25, Anion Gap 11, Blood Urea Nitrogen 35H, Creatinine 1.1, Estimat Glomerular Filtration Rate , Glucose Level 197H, Calcium Level 9.5, Magnesium Level 1.8, Total Bilirubin 0.2, Aspartate Amino Transf (AST/SGOT) 15, Alanine Aminotransferase (ALT/SGPT) 16, Alkaline Phosphatase 73, Total Protein 7.5, Albumin 2.8L, Globulin 4.7, Albumin/Globulin Ratio 0.6L Current Medications Medications (Trade) Dose Ordered Sig/Delores Route PRN Reason Start Time Stop Time Status Last Admin Dose Admin Albuterol/ Ipratropium (Albuterol/ Ipratropium) 3 ml Q4HRT HHN 08/07/17 23:00 08/12/17 22:59 08/11/17 11:10 Azithromycin (Zithromax) 250 mg QHS ORAL 08/07/17 23:00 08/14/17 22:59 08/10/17 21:05 Carbidopa/Levodopa (Sinemet 10/100) 1 tab THREE TIMES A DAY ORAL 08/08/17 09:00 09/07/17 08:59 08/11/17 14:08 Ceftriaxone Sodium 1 gm/ Dextrose 55 ml @ 110 mls/hr Q24H IVPB 08/07/17 23:00 08/14/17 22:59 08/10/17 22:34 Dextrose (Dextrose 50%) STAT PRN IV Hypoglycemia 08/07/17 21:15 09/06/17 21:14 Heparin Sodium (Porcine) (Heparin 5000 units/ml) 5,000 units EVERY 12 HOURS SUBQ 08/08/17 23:00 09/07/17 22:59 08/11/17 09:10 Insulin Aspart (NovoLOG) BEFORE MEALS AND HS SUBQ 08/08/17 06:30 09/07/17 06:29 08/11/17 11:43 Levothyroxine Sodium (Synthroid) 50 mcg DAILY@0630 ORAL 1/14/18 06:30 09/07/17 06:29 08/11/17 06:01 Lisinopril (Prinivil) 20 mg DAILY ORAL 08/08/17 09:00 09/07/17 08:59 08/11/17 09:09 Memantine (Namenda) 10 mg BID ORAL 08/08/17 09:00 09/07/17 08:59 08/11/17 09:09 Methylprednisolone Sodium Succinate (Solu-MEDROL) 40 mg EVERY 12 HOURS IVP 08/10/17 21:00 09/08/17 09:29 08/11/17 09:08 Quetiapine Fumarate (SEROquel) 12.5 mg Q4H PRN ORAL AGITATION 08/11/17 11:45 09/10/17 11:44 08/11/17 11:35 Sitagliptin Phosphate (Januvia) 25 mg ACBREAKFAST ORAL 08/08/17 06:30 09/07/17 06:29 08/11/17 06:01 SHANNAN WALKER Aug 11, 2017 14:13
--- NOTE | 2017-08-11 15:15 | Diagnostic Imaging Report ---
Indication: Dyspnea Comparison: 08/09/2017 A single view chest radiograph was obtained. Findings: Interstitial opacities and cardiomegaly again demonstrated, largely unchanged. There is biapical pleural thickening. The aorta is ectatic and calcified. Bones are osteopenic. There is an old right clavicle fracture. IMPRESSION: Interstitial prominence with cardiomegaly. Some degree of mild CHF not excluded. Findings are unchanged
--- NOTE | 2017-08-11 16:01 | General Progress Note ---
Assessment/Plan Problem List: (1) Influenza-like symptoms ICD Codes: R68.89 - Other general symptoms and signs SNOMED: 491330780 (2) Hypoxia ICD Codes: R09.02 - Hypoxemia SNOMED: 449792388 (3) Pneumonia ICD Codes: J18.9 - Pneumonia, unspecified organism SNOMED: 281340212 Status: stable, progressing Assessment/Plan cont abx resp care/o2 dc steroids per pulm diabetes rx bp rx repeat cxr prn diuresis dvt/stress ulcer prophylaxis no ready for dc yet Subjective ROS Limited/Unobtainable: No Constitutional: Reports: malaise, weakness HEENT: Reports: no symptoms Cardiovascular: Reports: no symptoms Respiratory: Reports: cough, shortness of breath, sputum Gastrointestinal/Abdominal: Reports: no symptoms Genitourinary: Reports: no symptoms Neurologic/Psychiatric: Reports: pre-existing deficit Endocrine: Reports: no symptoms Hematologic/Lymphatic: Reports: anemia Allergies: Coded Allergies: No Known Allergies (Unverified , 08/07/17) All Systems: reviewed and negative except above Subjective no overnite events. less congested. no fevers. cxr improving. still has congested frequent cough. pulm and id appreciated Objective Last 24 Hour Vital Signs Date Time Temp Pulse Resp B/P (MAP) Pulse Ox O2 Delivery O2 Flow Rate FiO2 08/11/17 11:53 97.6 91 20 141/81 96 08/11/17 11:11 79 18 99 Room Air 21 08/11/17 11:11 77 19 77 Room Air 08/11/17 09:09 141/68 08/11/17 08:12 98.0 70 22 141/68 95 08/11/17 08:02 85 18 99 Room Air 21 08/11/17 08:02 84 18 99 Room Air 21 08/11/17 08:02 70 16 96 Room Air 21 08/11/17 04:14 Room Air 08/11/17 04:13 Room Air 08/11/17 04:01 98.2 81 20 136/76 98 08/11/17 04:00 98 Room Air 08/11/17 00:02 98.2 81 20 121/56 98 08/10/17 23:16 Room Air 08/10/17 23:15 81 18 92 Room Air 08/10/17 21:22 Room Air 08/10/17 21:22 81 18 92 Room Air 08/10/17 20:00 98.2 85 20 126/52 96 08/10/17 19:10 2.0 08/10/17 16:00 98.2 106 22 141/65 96 Nasal Cannula 2.0 Intake and Output 08/10/17 08/11/17 19:00 07:00 Intake Total 360 ml Balance 360 ml Intake Oral 360 ml # Voids 4 2 # Bowel Movements 2 Laboratory Tests 08/11/17 05:36: Sodium Level 141, Potassium Level 4.1, Chloride Level 105, Carbon Dioxide Level 25, Anion Gap 11, Blood Urea Nitrogen 35H, Creatinine 1.1, Estimat Glomerular Filtration Rate , Glucose Level 197H, Calcium Level 9.5, Magnesium Level 1.8, Total Bilirubin 0.2, Aspartate Amino Transf (AST/SGOT) 15, Alanine Aminotransferase (ALT/SGPT) 16, Alkaline Phosphatase 73, Total Protein 7.5, Albumin 2.8L, Globulin 4.7, Albumin/Globulin Ratio 0.6L Height (Feet): 4 Height (Inches): 11.00 Weight (Pounds): 148 General Appearance: WD/WN, alert Neck: supple Cardiovascular: normal rate, regular rhythm Respiratory/Chest: rhonchi - bilaterally Abdomen: normal bowel sounds, non tender, soft, no organomegaly Edema: no edema noted Arm (L), no edema noted Arm (R), no edema noted Leg (L), no edema noted Leg (R), no edema noted Pedal (L), no edema noted Pedal (R), no edema noted Generalized Neurologic: 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
[2017-08-11 16:05] VITALS: BP 136/69
[2017-08-11 20:32] VITALS: BP 135/65
--- NOTE | 2017-08-11 20:58 | Consultation ---
History of Present Illness General Date patient seen: Aug 11, 2017 Chief Complaint: Flu Like Symptoms Present Illness HPI 86-year-old female. She has a history of reactive airway disease, diabetes, and hypertension. She presented with one week of shortness of breath. the pt was agitated today, coming out of bed and attempted to leave. the pt was illogical and was unable to provide reliable hx. the pt lacks capacity and may not leave ama Allergies: Coded Allergies: No Known Allergies (Unverified , 08/07/17) Medication History Scheduled Albuterol Sulfate* (Albuterol Sulfate Hhn*), 3 ML INH PRN, (Reported) Atorvastatin (Lipitor), 80 MG ORAL BEDTIME, (Reported) Levodopa/Carbidopa (Carbidopa-Levodopa 25-100 Tab), 1 TAB ORAL THREE TIMES A DAY , (Reported) Levothyroxine Sodium* (Levothyroxine Sodium*), 50 MCG ORAL DAILY, (Reported) Lisinopril (Lisinopril*), 20 MG ORAL DAILY, (Reported) Memantine Hcl* (Namenda*), 10 MG ORAL TWICE A DAY, (Reported) Metformin Hcl* (Metformin Hcl*), 500 MG ORAL DAILY, (Reported) Risperidone* (Risperdal*), 0.25 MG ORAL DAILY, (Reported) Miscellaneous Medications Sitagliptin* (Januvia*), 100 MG ORAL, (Reported) Patient History Limited by: medical condition History Provided By: Patient, Medical Record, PMD Healthcare decision maker CARROL CHANG, DAUGHTER Resuscitation status Full Code Advanced Directive on File N/A Past Medical/Surgical History Past Medical/Surgical History: (1) Influenza-like symptoms (2) Hypoxia (3) Pneumonia Review of Systems Psychiatric: Reports: prior hx, anxiety, depressed feelings, emotional problems Physical Exam General Appearance: no apparent distress, alert, confused, agitated Neurologic: responsive, disoriented, depressed affect Last 24 Hour Vital Signs Date Time Temp Pulse Resp B/P (MAP) Pulse Ox O2 Delivery O2 Flow Rate FiO2 08/11/17 16:05 98.0 89 20 136/69 95 Room Air 08/11/17 16:02 82 16 98 Room Air 21 08/11/17 16:02 79 17 99 Room Air 21 08/11/17 11:53 97.6 91 20 141/81 96 08/11/17 11:11 79 18 99 Room Air 21 08/11/17 11:11 77 19 77 Room Air 21 08/11/17 09:09 141/68 08/11/17 08:12 98.0 70 22 141/68 95 08/11/17 08:02 85 18 99 Room Air 21 08/11/17 08:02 84 18 99 Room Air 21 08/11/17 08:02 70 16 96 Room Air 21 08/11/17 04:14 Room Air 08/11/17 04:13 Room Air 08/11/17 04:01 98.2 81 20 136/76 98 08/11/17 04:00 98 Room Air 08/11/17 00:02 98.2 81 20 121/56 98 08/10/17 23:16 Room Air 08/10/17 23:15 81 18 92 Room Air 08/10/17 21:22 Room Air 08/10/17 21:22 81 18 92 Room Air Intake and Output 08/10/17 08/11/17 19:00 07:00 Intake Total 360 ml Balance 360 ml Intake Oral 360 ml # Voids 4 2 # Bowel Movements 2 Laboratory Tests Test 08/11/17 05:36 Sodium Level 141 MMOL/L (136-145) Potassium Level 4.1 MMOL/L (3.5-5.1) Chloride Level 105 MMOL/L (98-107) Carbon Dioxide Level 25 MMOL/L (21-32) Anion Gap 11 mmol/L (5-15) Blood Urea Nitrogen 35 mg/dL (7-18) H Creatinine 1.1 MG/DL (0.55-1.30) Estimat Glomerular Filtration Rate mL/min (>60) Glucose Level 197 MG/DL (74-106) H Calcium Level 9.5 MG/DL (8.5-10.1) Magnesium Level 1.8 MG/DL (1.8-2.4) Total Bilirubin 0.2 MG/DL (0.2-1.0) Aspartate Amino Transf (AST/SGOT) 15 U/L (15-37) Alanine Aminotransferase (ALT/SGPT) 16 U/L (12-78) Alkaline Phosphatase 73 U/L (46-116) Total Protein 7.5 G/DL (6.4-8.2) Albumin 2.8 G/DL (3.4-5.0) L Globulin 4.7 g/dL Albumin/Globulin Ratio 0.6 (1.0-2.7) L Height (Feet): 4 Height (Inches): 11.00 Weight (Pounds): 148 Medications Current Medications Medications (Trade) Dose Ordered Sig/Delores Route PRN Reason Start Time Stop Time Status Last Admin Dose Admin Albuterol/ Ipratropium (Albuterol/ Ipratropium) 3 ml Q4HRT HHN 08/07/17 23:00 08/12/17 22:59 08/11/17 15:59 Azithromycin (Zithromax) 250 mg QHS ORAL 08/07/17 23:00 08/14/17 22:59 08/10/17 21:05 Carbidopa/Levodopa (Sinemet 10/100) 1 tab THREE TIMES A DAY ORAL 08/08/17 09:00 09/07/17 08:59 08/11/17 17:13 Ceftriaxone Sodium 1 gm/ Dextrose 55 ml @ 110 mls/hr Q24H IVPB 08/07/17 23:00 08/14/17 22:59 08/10/17 22:34 Dextrose (Dextrose 50%) STAT PRN IV Hypoglycemia 08/07/17 21:15 09/06/17 21:14 Heparin Sodium (Porcine) (Heparin 5000 units/ml) 5,000 units EVERY 12 HOURS SUBQ 08/08/17 23:00 09/07/17 22:59 08/11/17 09:10 Insulin Aspart (NovoLOG) BEFORE MEALS AND HS SUBQ 08/08/17 06:30 09/07/17 06:29 08/11/17 17:15 Levothyroxine Sodium (Synthroid) 50 mcg DAILY@0630 ORAL 08/08/17 06:30 09/07/17 06:29 08/11/17 06:01 Lisinopril (Prinivil) 20 mg DAILY ORAL 08/08/17 09:00 09/07/17 08:59 08/11/17 09:09 Memantine (Namenda) 10 mg BID ORAL 08/08/17 09:00 09/07/17 08:59 08/11/17 17:13 Quetiapine Fumarate (SEROquel) 12.5 mg Q4H PRN ORAL AGITATION 08/11/17 11:45 09/10/17 11:44 08/11/17 11:35 Sitagliptin Phosphate (Januvia) 25 mg ACBREAKFAST ORAL 08/08/17 06:30 09/07/17 06:29 08/11/17 06:01 Assessment/Plan Status: stable Assessment/Plan agitation cognitive impairment -seroquel Eleni Wilkes M.D. Aug 11, 2017 20:57
[2017-08-11] MEDS: Azithromycin 250mg tab ORAL SCH (21:26)
[2017-08-11] MEDS: cefTRIAXone 1 GM in D5W 55 ML IVPB SCH (22:59)
[2017-08-12 00:17] VITALS: BP 117/58
[2017-08-12 04:46] VITALS: BP 126/56
[2017-08-12] MEDS: Albuterol/Ipratropium 3ml neb HHN SCH ×5 (05:05→19:59)
[2017-08-12] MEDS: sitaGLIPtin 25mg tab ORAL SCH (05:58)
[2017-08-12] MEDS: NovoLOG Insulin Flexpen SUBQ SCH ×4 (05:59→22:05)
[2017-08-12 08:00] VITALS: BP 115/71
--- NOTE | 2017-08-12 08:21 | Pulmonology Progress Note ---
Assessment/Plan Assessment/Plan IMPRESSION pneumonia bronchospasm, acute diabetes hypertension possible pulmonary edema leukocytosis possible sepsis anemia PLAN care noted and reviewed IV antibiotics ? po d/w ID monitor fluid status oxygen as needed appears improved keep negative and monitor follow up imaging for change and improvement impression, plan, and exam edited and reviewed in detail care discussed with RN Subjective Allergies: Coded Allergies: No Known Allergies (Unverified , 08/07/17) Subjective events reviewed and discussed minimal congestion Objective Last 24 Hour Vital Signs Date Time Temp Pulse Resp B/P (MAP) Pulse Ox O2 Delivery O2 Flow Rate FiO2 08/12/17 08:05 78 22 99 Room Air 21 08/12/17 08:00 97.5 75 20 115/71 93 08/12/17 08:00 71 18 97 Room Air 21 08/12/17 04:46 97.3 64 18 126/56 94 08/12/17 04:46 94 Room Air 08/12/17 03:29 88 22 99 Room Air 21 08/12/17 03:24 71 18 97 Room Air 21 08/12/17 00:17 93 Room Air 08/12/17 00:17 98.1 83 18 117/58 93 08/11/17 23:00 Room Air 21 08/11/17 23:00 Room Air 21 08/11/17 20:32 97 Room Air 08/11/17 20:32 98.0 87 20 135/65 97 08/11/17 19:24 86 20 99 Room Air 21 08/11/17 19:15 81 16 97 Room Air 21 08/11/17 16:05 98.0 89 20 136/69 95 Room Air 08/11/17 16:02 82 16 98 Room Air 21 08/11/17 16:02 79 17 99 Room Air 21 08/11/17 11:53 97.6 91 20 141/81 96 08/11/17 11:11 79 18 99 Room Air 21 08/11/17 11:11 77 19 77 Room Air 21 08/11/17 09:09 141/68 Intake and Output 08/11/17 08/12/17 19:00 07:00 Intake Total 840 ml 175 ml Balance 840 ml 175 ml Intake Oral 840 ml 120 ml IV Total 55 ml # Voids 4 3 Objective WDWN NAD reduced breath sounds bilaterally with minimal rhonchi [id number] without MRG NABS nontender no HSM no CC mild edema reduced LOC nonfocal Microbiology Date/Time Source Procedure Growth Status 08/10/17 01:50 Sputum Expectorated Gram Stain - Final Complete 08/10/17 01:50 Sputum Expectorated Sputum Culture - Final NORMAL UPPER RESPIRATORY JOJO PRESENT Complete Current Medications Medications (Trade) Dose Ordered Sig/Delores Route PRN Reason Start Time Stop Time Status Last Admin Dose Admin Albuterol/ Ipratropium (Albuterol/ Ipratropium) 3 ml Q4HRT HHN 08/07/17 23:00 08/12/17 22:59 08/12/17 08:01 Azithromycin (Zithromax) 250 mg QHS ORAL 08/07/17 23:00 08/14/17 22:59 08/11/17 21:26 Carbidopa/Levodopa (Sinemet 10/100) 1 tab THREE TIMES A DAY ORAL 08/08/17 09:00 09/07/17 08:59 08/11/17 17:13 Ceftriaxone Sodium 1 gm/ Dextrose 55 ml @ 110 mls/hr Q24H IVPB 08/07/17 23:00 08/14/17 22:59 08/11/17 22:59 Dextrose (Dextrose 50%) STAT PRN IV Hypoglycemia 08/07/17 21:15 09/06/17 21:14 Heparin Sodium (Porcine) (Heparin 5000 units/ml) 5,000 units EVERY 12 HOURS SUBQ 08/08/17 23:00 09/07/17 22:59 08/11/17 21:27 Insulin Aspart (NovoLOG) BEFORE MEALS AND HS SUBQ 08/08/17 06:30 09/07/17 06:29 08/12/17 05:59 Levothyroxine Sodium (Synthroid) 50 mcg DAILY@0630 ORAL 08/08/17 06:30 09/07/17 06:29 08/12/17 05:58 Lisinopril (Prinivil) 20 mg DAILY ORAL 08/08/17 09:00 09/07/17 08:59 08/11/17 09:09 Memantine (Namenda) 10 mg BID ORAL 08/08/17 09:00 09/07/17 08:59 08/11/17 17:13 Quetiapine Fumarate (SEROquel) 12.5 mg Q4H PRN ORAL AGITATION 08/11/17 11:45 09/10/17 11:44 08/11/17 21:26 Sitagliptin Phosphate (Januvia) 25 mg ACBREAKFAST ORAL 08/08/17 06:30 09/07/17 06:29 08/12/17 05:58 SHANNAN WALKER Aug 12, 2017 08:21
--- NOTE | 2017-08-12 08:54 | General Progress Note ---
Assessment/Plan Problem List: (1) Influenza-like symptoms ICD Codes: R68.89 - Other general symptoms and signs SNOMED: 944407972 (2) Hypoxia ICD Codes: R09.02 - Hypoxemia SNOMED: 905150230 (3) Pneumonia ICD Codes: J18.9 - Pneumonia, unspecified organism SNOMED: 742457315 Status: stable, progressing Assessment/Plan cont abx resp care/o2 dc steroids per pulm diabetes rx bp rx repeat cxr prn diuresis dvt/stress ulcer prophylaxis dc planning tomorrow if stable Subjective ROS Limited/Unobtainable: No Constitutional: Reports: malaise, weakness HEENT: Reports: no symptoms Cardiovascular: Reports: no symptoms Respiratory: Reports: cough, shortness of breath, sputum, wheezing Gastrointestinal/Abdominal: Reports: no symptoms Genitourinary: Reports: no symptoms Neurologic/Psychiatric: Reports: pre-existing deficit Endocrine: Reports: no symptoms Hematologic/Lymphatic: Reports: no symptoms Allergies: Coded Allergies: No Known Allergies (Unverified , 08/07/17) All Systems: reviewed and negative except above Subjective no overnite events. less congested. still with some hweezing. no fevers. cxr improving. still has congested frequent cough. pulm and id appreciated Objective Last 24 Hour Vital Signs Date Time Temp Pulse Resp B/P (MAP) Pulse Ox O2 Delivery O2 Flow Rate FiO2 08/12/17 08:05 78 22 99 Room Air 21 08/12/17 08:00 97.5 75 20 115/71 93 08/12/17 08:00 71 18 97 Room Air 08/12/17 04:46 97.3 64 18 126/56 94 08/12/17 04:46 94 Room Air 08/12/17 03:29 88 22 99 Room Air 21 08/12/17 03:24 71 18 97 Room Air 21 08/12/17 00:17 93 Room Air 08/12/17 00:17 98.1 83 18 117/58 93 08/11/17 23:00 Room Air 21 08/11/17 23:00 Room Air 21 08/11/17 20:32 97 Room Air 08/11/17 20:32 98.0 87 20 135/65 97 08/11/17 19:24 86 20 99 Room Air 21 08/11/17 19:15 81 16 97 Room Air 21 08/11/17 16:05 98.0 89 20 136/69 95 Room Air 08/11/17 16:02 82 16 98 Room Air 21 08/11/17 16:02 79 17 99 Room Air 21 08/11/17 11:53 97.6 91 20 141/81 96 08/11/17 11:11 79 18 99 Room Air 21 08/11/17 11:11 77 19 77 Room Air 21 08/11/17 09:09 141/68 Intake and Output 08/11/17 08/12/17 19:00 07:00 Intake Total 840 ml 175 ml Balance 840 ml 175 ml Intake Oral 840 ml 120 ml IV Total 55 ml # Voids 4 3 Height (Feet): 4 Height (Inches): 11.00 Weight (Pounds): 148 Objective General Appearance: WD/WN, alert Neck: supple Cardiovascular: normal peripheral pulses, normal rate, regular rhythm Respiratory/Chest: rhonchi - bilaterally Abdomen: normal bowel sounds, non tender, soft, no organomegaly Edema: no edema noted Arm (L), no edema noted Arm (R), no edema noted Leg (L), no edema noted Leg (R), no edema noted Pedal (L), no edema noted Pedal (R), no edema noted Generalized Neurologic: well tender II-XII grossly normal, alert, responsive JUAN AUGUSTE Aug 12, 2017 08:54
[2017-08-12] MEDS: Lisinopril 20mg tab ORAL SCH (08:59)
[2017-08-12] MEDS: Levodopa/Carbidopa 10/100 tab ORAL SCH ×3 (09:00→17:40)
[2017-08-12] MEDS: Memantine 10mg tab ORAL SCH ×2 (09:00→17:41)
[2017-08-12] MEDS: Heparin 5000 units/ml inj SUBQ SCH ×2 (09:02→22:03)
[2017-08-12 12:01] VITALS: BP 118/70
--- NOTE | 2017-08-12 13:33 | Infectious Diseases Prog Note ---
Assessment/Plan Assessment/Plan A 1. pneumonia 2. DM 3. HPN 4. Parkinson disease 5 Diastolic CHF P 1. continue ceftriaxone, azithromycin X 1 day Subjective ROS Limited/Unobtainable: Yes Respiratory: Reports: no symptoms Allergies: Coded Allergies: No Known Allergies (Unverified , 08/07/17) Objective Vital Signs Last 24 Hour Vital Signs Date Time Temp Pulse Resp B/P (MAP) Pulse Ox O2 Delivery O2 Flow Rate FiO2 08/12/17 12:01 98.2 77 21 118/70 93 08/12/17 11:29 Room Air 21 08/12/17 11:29 Room Air 21 08/12/17 08:59 115/71 08/12/17 08:05 78 22 99 Room Air 21 08/12/17 08:00 97.5 75 20 115/71 93 08/12/17 08:00 71 18 97 Room Air 21 08/12/17 04:46 97.3 64 18 126/56 94 08/12/17 04:46 94 Room Air 08/12/17 03:29 88 22 99 Room Air 21 08/12/17 03:24 71 18 97 Room Air 21 08/12/17 00:17 93 Room Air 08/12/17 00:17 98.1 83 18 117/58 93 08/11/17 23:00 Room Air 21 08/11/17 23:00 Room Air 21 08/11/17 20:32 97 Room Air 08/11/17 20:32 98.0 87 20 135/65 97 08/11/17 19:24 86 20 99 Room Air 21 08/11/17 19:15 81 16 97 Room Air 21 08/11/17 16:05 98.0 89 20 136/69 95 Room Air 08/11/17 16:02 82 16 98 Room Air 21 08/11/17 16:02 79 17 99 Room Air 21 Height (Feet): 4 Height (Inches): 11.00 Weight (Pounds): 148 General Appearance: no acute distress HEENT: mucous membranes moist Respiratory/Chest: other - coarse sounds Cardiovascular: normal rate Abdomen: soft, non tender Extremities: no edema Neurologic/Psychiatric: alert, responsive Microbiology Date/Time Source Procedure Growth Status 08/10/17 01:50 Sputum Expectorated Gram Stain - Final Complete 08/10/17 01:50 Sputum Expectorated Sputum Culture - Final NORMAL UPPER RESPIRATORY JOJO PRESENT Complete Current Medications Medications (Trade) Dose Ordered Sig/Delores Route PRN Reason Start Time Stop Time Status Last Admin Dose Admin Albuterol/ Ipratropium (Albuterol/ Ipratropium) 3 ml Q4HRT HHN 08/07/17 23:00 08/12/17 22:59 08/12/17 08:01 Azithromycin (Zithromax) 250 mg QHS ORAL 08/07/17 23:00 08/14/17 22:59 08/11/17 21:26 Carbidopa/Levodopa (Sinemet 10/100) 1 tab THREE TIMES A DAY ORAL 08/08/17 09:00 09/07/17 08:59 08/12/17 13:19 Ceftriaxone Sodium 1 gm/ Dextrose 55 ml @ 110 mls/hr Q24H IVPB 08/07/17 23:00 08/14/17 22:59 08/11/17 22:59 Dextrose (Dextrose 50%) STAT PRN IV Hypoglycemia 08/07/17 21:15 09/06/17 21:14 Heparin Sodium (Porcine) (Heparin 5000 units/ml) 5,000 units EVERY 12 HOURS SUBQ 08/08/17 23:00 09/07/17 22:59 08/12/17 09:02 Insulin Aspart (NovoLOG) BEFORE MEALS AND HS SUBQ 08/08/17 06:30 09/07/17 06:29 08/12/17 11:39 Levothyroxine Sodium (Synthroid) 50 mcg DAILY@0630 ORAL 08/08/17 06:30 09/07/17 06:29 08/12/17 05:58 Lisinopril (Prinivil) 20 mg DAILY ORAL 08/08/17 09:00 09/07/17 08:59 08/12/17 08:59 Memantine (Namenda) 10 mg BID ORAL 08/08/17 09:00 09/07/17 08:59 08/12/17 09:00 Quetiapine Fumarate (SEROquel) 12.5 mg Q4H PRN ORAL AGITATION 08/11/17 11:45 09/10/17 11:44 08/11/17 21:26 Sitagliptin Phosphate (Januvia) 25 mg ACBREAKFAST ORAL 08/08/17 06:30 09/07/17 06:29 08/12/17 05:58 NNEKA WHEELER Aug 12, 2017 13:33
--- NOTE | 2017-08-12 14:45 | Cardiology Report ---
APPROVED REPORT EKG Measurement Heart [id number] [place] 124P31 [id number] Normal sinus rhythm Nonspecific T wave abnormality Abnormal ECG
[2017-08-12 16:19] VITALS: BP 117/64
[2017-08-12 20:45] VITALS: BP 113/62
[2017-08-12] MEDS: Azithromycin 250mg tab ORAL SCH (21:52)
[2017-08-12] MEDS: cefTRIAXone 1 GM in D5W 55 ML IVPB SCH (22:07)
[2017-08-13] VITALS (7 sets, daily range): BP systolic 107–124; BP diastolic 52–66
[2017-08-13] MEDS: sitaGLIPtin 25mg tab ORAL SCH (06:37)
[2017-08-13] MEDS: NovoLOG Insulin Flexpen SUBQ SCH ×2 (06:39→12:13)
--- NOTE | 2017-08-13 08:36 | Pulmonology Progress Note ---
Assessment/Plan Assessment/Plan IMPRESSION pneumonia bronchospasm, acute diabetes hypertension possible pulmonary edema leukocytosis possible sepsis anemia PLAN care noted and reviewed appears to be improving monitor fluid status oxygen as needed appears improved keep negative and monitor monitor imaging follow up imaging for change and improvement impression, plan, and exam edited and reviewed in detail care discussed with RN Subjective Allergies: Coded Allergies: No Known Allergies (Unverified , 08/07/17) Subjective events reviewed and discussed minimal congestion Objective Last 24 Hour Vital Signs Date Time Temp Pulse Resp B/P (MAP) Pulse Ox O2 Delivery O2 Flow Rate FiO2 08/13/17 08:00 98.2 70 18 120/61 96 Room Air 08/13/17 04:37 97.7 69 16 117/52 92 08/13/17 00:45 97.3 80 18 107/54 93 08/12/17 20:45 97.0 81 18 113/62 98 08/12/17 20:09 83 18 99 Room Air 21 08/12/17 20:00 79 18 98 Room Air 21 08/12/17 16:19 98.2 92 20 117/64 94 Room Air 08/12/17 15:29 79 18 99 Room Air 21 08/12/17 15:29 77 18 98 Room Air 21 08/12/17 12:01 98.2 77 21 118/70 93 08/12/17 11:29 Room Air 21 08/12/17 11:29 Room Air 21 08/12/17 08:59 115/71 Intake and Output 08/12/17 08/13/17 19:00 07:00 Intake Total 360 ml 240 ml Balance 360 ml 240 ml Intake Oral 360 ml 240 ml # Voids 2 2 Objective WDWN NAD reduced breath sounds bilaterally with minimal rhonchi [id number] without MRG NABS nontender no HSM no CC mild edema reduced LOC nonfocal Current Medications Medications (Trade) Dose Ordered Sig/Delores Route PRN Reason Start Time Stop Time Status Last Admin Dose Admin Azithromycin (Zithromax) 250 mg QHS ORAL 08/07/17 23:00 08/14/17 22:59 08/12/17 21:52 Carbidopa/Levodopa (Sinemet 10/100) 1 tab THREE TIMES A DAY ORAL 08/08/17 09:00 09/07/17 08:59 08/12/17 17:40 Ceftriaxone Sodium 1 gm/ Dextrose 55 ml @ 110 mls/hr Q24H IVPB 08/07/17 23:00 08/14/17 22:59 08/12/17 22:07 Dextrose (Dextrose 50%) STAT PRN IV Hypoglycemia 08/07/17 21:15 09/06/17 21:14 Heparin Sodium (Porcine) (Heparin 5000 units/ml) 5,000 units EVERY 12 HOURS SUBQ 08/08/17 23:00 09/07/17 22:59 08/12/17 22:03 Insulin Aspart (NovoLOG) BEFORE MEALS AND HS SUBQ 08/08/17 06:30 09/07/17 06:29 08/13/17 06:39 Levothyroxine Sodium (Synthroid) 50 mcg DAILY@0630 ORAL 08/08/17 06:30 09/07/17 06:29 08/13/17 06:37 Lisinopril (Prinivil) 20 mg DAILY ORAL 08/08/17 09:00 09/07/17 08:59 08/12/17 08:59 Memantine (Namenda) 10 mg BID ORAL 08/08/17 09:00 09/07/17 08:59 08/12/17 17:41 Quetiapine Fumarate (SEROquel) 12.5 mg Q4H PRN ORAL AGITATION 08/11/17 11:45 09/10/17 11:44 08/11/17 21:26 Sitagliptin Phosphate (Januvia) 25 mg ACBREAKFAST ORAL 08/08/17 06:30 09/07/17 06:29 08/13/17 06:37 SHANNAN WALKER Aug 13, 2017 08:36
[2017-08-13] MEDS ORDERED: PREDNISONE10 M2 PO (08:43)
[2017-08-13] MEDS ORDERED: LEVAQUIN500 MG ORAL (08:43)
[2017-08-13] MEDS: Memantine 10mg tab ORAL SCH (09:40)
[2017-08-13] MEDS: Levodopa/Carbidopa 10/100 tab ORAL SCH ×2 (09:41→13:57)
[2017-08-13] MEDS: Heparin 5000 units/ml inj SUBQ SCH (09:42)
--- NOTE | 2017-08-13 10:55 | General Progress Note ---
Assessment/Plan Status: stable, progressing Assessment/Plan the pt lacks capacity to leave ama agitation Subjective Date patient seen: Aug 12, 2017 Neurologic/Psychiatric: Reports: anxiety, depressed, emotional problems Allergies: Coded Allergies: No Known Allergies (Unverified , 08/07/17) Subjective the pt is calmer and more cooperative Objective Last 24 Hour Vital Signs Date Time Temp Pulse Resp B/P (MAP) Pulse Ox O2 Delivery O2 Flow Rate FiO2 08/13/17 09:37 72 110/57 08/13/17 08:00 98.2 70 18 120/61 96 Room Air 08/13/17 04:37 97.7 69 16 117/52 92 08/13/17 00:45 97.3 80 18 107/54 93 08/12/17 20:45 97.0 81 18 113/62 98 08/12/17 20:09 83 18 99 Room Air 21 08/12/17 20:00 79 18 98 Room Air 21 08/12/17 16:19 98.2 92 20 117/64 94 Room Air 08/12/17 15:29 79 18 99 Room Air 21 08/12/17 15:29 77 18 98 Room Air 21 08/12/17 12:01 98.2 77 21 118/70 93 08/12/17 11:29 Room Air 21 08/12/17 11:29 Room Air 21 Intake and Output 08/12/17 08/13/17 19:00 07:00 Intake Total 360 ml 240 ml Balance 360 ml 240 ml Intake Oral 360 ml 240 ml # Voids 2 2 Height (Feet): 4 Height (Inches): 11.00 Weight (Pounds): 148 General Appearance: no apparent distress, alert Neurologic: alert, oriented x 3, responsive, depressed affect Eleni Reyes M.D. Aug 13, 2017 10:55
--- NOTE | 2017-08-13 12:29 | Infectious Diseases Prog Note ---
Assessment/Plan Assessment/Plan antibiotics : ceftriaxone, azithromycin A 1. pneumonia s/p rx 2. DM 3. HTN 4. Parkinsons disease P 1. d/c ceftriaxone, azithromycin 2. observe off antibiotics Subjective Constitutional: Denies: fever, chills Respiratory: Reports: dry cough, Denies: shortness of breath Gastrointestinal/Abdominal: Denies: nausea, vomiting, diarrhea Musculoskeletal: Denies: pain Allergies: Coded Allergies: No Known Allergies (Unverified , 08/07/17) Objective Vital Signs Last 24 Hour Vital Signs Date Time Temp Pulse Resp B/P (MAP) Pulse Ox O2 Delivery O2 Flow Rate FiO2 08/13/17 11:49 97.7 86 20 118/66 98 Room Air 08/13/17 09:37 72 110/57 08/13/17 08:00 98.2 70 18 120/61 96 Room Air 08/13/17 04:37 97.7 69 16 117/52 92 08/13/17 00:45 97.3 80 18 107/54 93 08/12/17 20:45 97.0 81 18 113/62 98 08/12/17 20:09 83 18 99 Room Air 21 08/12/17 20:00 79 18 98 Room Air 21 08/12/17 16:19 98.2 92 20 117/64 94 Room Air 08/12/17 15:29 79 18 99 Room Air 21 08/12/17 15:29 77 18 98 Room Air 21 Height (Feet): 4 Height (Inches): 11.00 Weight (Pounds): 148 Respiratory/Chest: rhonchi - bilaterally - decreasing Cardiovascular: normal rate, regular rhythm, no gallop/murmur Abdomen: soft, non tender Extremities: no edema CLAUDE CANCINO Aug 13, 2017 12:29
[2017-08-13] MEDS: Lisinopril 20mg tab ORAL SCH (13:58)
--- NOTE | 2017-08-13 20:30 | Progress Note ---
DATE: 08/13/2017 SUBJECTIVE: The patient is calmer. Behavior is well manageable. The patient is more redirectable, participated in had a sitter. Focused on discharge. She has cognitive impairment, however, able to answer the questions. MENTAL STATUS EXAMINATION: The patient is alert and oriented times self and place. Mood is anxious. Affect is flat. Congruent with mood. Thought process is concrete. Thought content, no suicidal or homicidal ideations. ASSESSMENT: The patient lacks capacity to leave against medical advice. Agitation has improved. PLAN: 1. We will continue the current medication. 2. We will continue to follow and readjust the medications. Eleni Reyes M.D. DR: PAUL JOB#: [id number] CC:
--- NOTE | 2017-08-14 02:15 | Discharge Summary ---
DATE OF ADMISSION: 08/07/2017 DATE OF DISCHARGE: 08/13/2017 ADMISSION DIAGNOSES: 1. Pneumonia. 2. Chronic obstructive pulmonary disease exacerbation. 3. Toxic metabolic encephalopathy. 4. Sepsis. 5. Acute renal failure. 6. Congestive heart failure exacerbation. DISCHARGE DIAGNOSES: 1. Pneumonia. 2. Chronic obstructive pulmonary disease exacerbation. 3. Toxic metabolic encephalopathy. 4. Sepsis. 5. Acute renal failure. 6. Congestive heart failure exacerbation. HOSPITAL COURSE: The patient is a pleasant female with complaints of shortness of breath. She was diagnosed with pneumonia and chronic obstructive pulmonary disease exacerbation. She had respiratory treatments, intravenous steroids, and broad-spectrum antibiotics. She had some mild congestive heart failure on x-ray and she was gently diuresed. On discharge, she was doing well. The patient will be discharged home to complete antibiotics and steroid taper. Home hand-held nebulizers also been ordered for the patient. Family was instructed to return if the patient has worsening shortness of breath, fevers, chills, or chest pain. Roque Hoffman M.D. DR: KRISTEN JOB#: [id number] CC:
--- NOTE | 2017-08-17 14:58 | Diagnostic Imaging Report ---
Indications: Dysphagia Technique: Patient ingested multiple substances under the supervision of speech pathology. Video fluoroscopic recording performed. Total fluoroscopy time to 87.9 seconds. Total dose area product [id number] mGycm2 Comparison: none Findings: Penetration of thin liquid barium is demonstrated. There is also early pooling. No aspiration. Ingestion of nectar thick liquid barium likewise demonstrates supraglottic laryngeal penetration and early pooling in the vallecula and piriform sinuses. No carmelo aspiration demonstrated. Ingestion of honey thick liquid barium and barium puree demonstrates early pooling in the vallecula, no significant aspiration or penetration Impression: Positive for penetration of thin liquid barium and nectar thick liquid barium. No evidence of aspiration Please refer to speech pathology report for more detailed analysis
--- NOTE | 2017-08-17 15:21 | Physician Query ---
PLEASE COMPLETE THE DOCUMENT BEFORE SIGNING Dear Dr. AUGUSTE Date: 08/17/17 Family Support Specialist/CDS Name: LU PLUMMER CCS Exercise your independent professional judgment when responding to query. Question asked do not imply a particular answer is desired/expected Clinical Documentation States: DISCHARGE DIAGNOSES: 1. Pneumonia.2. Chronic obstructive pulmonary disease exacerbation. 3. Toxic metabolic encephalopathy.4. Sepsis. 5. Acute renal failure. 6. Congestive heart failure exacerbation. HOSPITAL COURSE: The patient is a pleasant female with complaints of shortness of breath. She was diagnosed with pneumonia and chronic obstructive pulmonary disease exacerbation. She had respiratory treatments, intravenous steroids, and broad-spectrum antibiotics. She had some mild congestive heart failure on x-ray and she was gently diuresed. Dr. Aragon metioned in progress note 08/12/17- Diastolic CHF Clinical Findings Show: BNP 08/07/17 (358 ), 08/09/17 (604) Diuretic: Lasix 20mg IV , Echocardiogram - EF 65-70%(mild LV diastolic dysfunction Please Clarify the Congestive heart failure: Acuity: [] Acute [] Chronic [] Acute on Chronic Type: [] Systolic [] Diastolic [] Systolic & Diastolic (Combined) [] Left Heart failure [] Other: Etiology: [] CHF due to Hypertension [] Cardiomyopathy [] Valvular Heart Disease [] Coronary Artery Disease [] Unable to determine [] Other: Condition Present on Admission: [] Yes [] No []Clinically Undeterminable Please also document in your Progress Notes and/or Discharge Summary and indicate if the condition was present on admission. JUAN AUGUSTE M.D. DATE & TIME [facility]
== END 2017-08-13 17:30 | disposition home health service (06) | DRG 720 ==
LOC: EMR 17:50 → EDBEDREQ 20:53 → ENRESERV 20:54 → 4W 21:38
DX: A41.9 Sepsis, unspecified organism (principal); N17.9 Acute kidney failure, unspecified; I50.43 Acute on chronic combined systolic (congestive) and diastolic (congestive) heart failure; J18.9 Pneumonia, unspecified organism; G92 Toxic encephalopathy; I11.0 Hypertensive heart disease with heart failure; F03.90 Unspecified dementia, unspecified severity, without behavioral disturbance, psychotic disturbance, mood disturbance, and anxiety; G20 Parkinson's disease; E11.9 Type 2 diabetes mellitus without complications; D64.9 Anemia, unspecified; J44.1 Chronic obstructive pulmonary disease with (acute) exacerbation; J98.01 Acute bronchospasm; R09.02 Hypoxemia; Z79.84 Long term (current) use of oral hypoglycemic drugs
CPT/HCPCS: 36415; 71045; 74230; 80053; 81003; 82962; 83605; 83735; 83880; 84484; 85025; 86710; 86713; 86738; 87040; 87070; 87205; 93005; 93306; 94640; 94664; 99285; J1815; J7620

== ENCOUNTER 2018-03-30 10:12 | Inpatient (IN) | payer MEDICARE, MEDICAID ==
[~2018-03-30] VITALS: Ht 157.5 cm; Wt 66.9 kg
[~2018-03-30 10:12] MED LIST: ALBUTEROL2.5 MG/3 M INH; JANUVIA25 MG ORAL; LEVAQUIN500 MG ORAL; LEVOTHYROXINE50 MCG ORAL; LIPITOR80 MG ORAL; LISINOPRIL20 MG ORAL; METFORMIN HCL500 M1 ORAL; NAMENDA10 MG ORAL; PREDNISONE10 M2 PO; RISPERDAL0.25 MG ORAL; SINEMET 25/1001 EA ORAL
[2018-03-30 10:44] VITALS: BP 127/67
[2018-03-30 11:49] LABS: HEMATOCRIT 37.9 % (37.0-47.0); HEMOGLOBIN 12.4 G/DL (12.0-16.0); MEAN CORPUSCULAR VOLUME 86 FL (80-99); PLATELET COUNT 287 K/UL (150-450); RED BLOOD COUNT 4.39 M/UL (4.20-5.40); RED CELL DISTRIBUTION WIDTH 12.7 % (11.6-14.8)
--- NOTE | 2018-03-30 12:02 | Diagnostic Imaging Report ---
Indication: Shortness of breath Technique: One view of the chest Comparison: 08/11/2017 Findings: The heart is enlarged. There is some retrocardiac consolidation and mild interstitial congestion. This appears similar to the prior exam. There may be a small left pleural effusion Impression: Cardiomegaly Mild interstitial congestion and retrocardiac consolidation Possible small left pleural effusion
[2018-03-30 12:03] LABS: ANION GAP 9 mmol/L (5-15); BLOOD UREA NITROGEN 17 mg/dL (7-18); CALCIUM 9.1 MG/DL (8.5-10.1); CARBON DIOXIDE 26 MMOL/L (21-32); CHLORIDE 102 MMOL/L (98-107); CREATININE 1.4 MG/DL (0.55-1.30); POTASSIUM 3.9 MMOL/L (3.5-5.1); SODIUM 137 MMOL/L (136-145)
[2018-03-30 12:07] LABS: ALANINE AMINOTRANSFERASE 17 U/L (12-78); ALBUMIN 3.1 G/DL (3.4-5.0); ALBUMIN/GLOBULIN RATIO 0.7 (1.0-2.7); ALKALINE PHOSPHATASE 95 U/L (46-116); ASPARTATE AMINO TRANSFERASE 21 U/L (15-37); BILIRUBIN,TOTAL 0.6 MG/DL (0.2-1.0)
[2018-03-30 12:35] VITALS: BP 132/78
[2018-03-30 13:07] LABS: APPEARANCE,URINE CLEAR; BILIRUBIN, URINE NEGATIVE (NEGATIVE); COLOR,URINE PALE YELLOW; GLUCOSE, URINE (UA) NEGATIVE (NEGATIVE); KETONES,URINE NEGATIVE (NEGATIVE); LEUKOCYTE ESTERASE ,URINE 1+ (NEGATIVE); NITRITE,URINE NEGATIVE (NEGATIVE); PH,URINE 6 (4.5-8.0); PROTEIN,URINE NEGATIVE (NEGATIVE); UROBILINOGEN,URINE NORMAL MG/DL (0.0-1.0)
--- NOTE | 2018-03-30 15:55 | Emergency Room Report ---
History of Present Illness General Chief Complaint: Upper Respiratory Illness Present Illness HPI Ms. Ross is 87 yo female who presents with shortness of breath and chest congestion. +cough no fever. +malaise Feels unwell generally. +dizziness and generalized weakness Allergies: Coded Allergies: No Known Allergies (Unverified , 08/07/17) Patient History Limited by: language barrier, age Past Medical History: COPD, pneumonia Reviewed Nursing Documentation: PMH: Agreed; PSxH: Agreed Nursing Documentation-PMH Hx Hypertension: Yes Hx Diabetes: Yes Hx Cancer: No Hx Gastrointestinal Problems: No Hx Dementia: Yes Hx Parkinson's Disease: Yes Review of Systems All Other Systems: limited - due to work of breathing and illness Physical Exam Vital Signs Date Time Temp Pulse Resp B/P (MAP) Pulse Ox O2 Delivery O2 Flow Rate FiO2 03/30/18 10:20 99.1 95 20 127/67 91 Room Air 99.1 Sp02 EP Interpretation: reviewed, normal General Appearance: normal inspection, alert, moderate distress - accessory muscle use, abdominal retractions Eyes: bilateral eye normal inspection, bilateral eye PERRL ENT: hearing grossly normal, normal pharynx, normal voice Neck: normal inspection, full range of motion Respiratory: respiratory distress, decreased breath sounds, accessory muscle use, crackles, rales, rhonchi, wheezing Cardiovascular #1: regular rate, rhythm, no edema, no gallop, systolic murmur Gastrointestinal: normal inspection, normal bowel sounds, non tender, soft, no guarding Neurologic: alert, oriented x3 Psychiatric: other - flat affect Skin: normal inspection, normal color, no rash, warm/dry Medical Decision Making Diagnostic Impression: Primary Impression: COPD exacerbation Additional Impressions: Acute respiratory failure with hypoxia CAP (community acquired pneumonia) ER Course Ms. Ross presents with COPD exacerbation. With elevated WBC and left lower lobe infiltrate process, suspect PNA. Admitted to service of Dr. Akins Lab Results Impression elevated WBC EKG Diagnostic Results EKG Time: 11:13 Rate: normal Rhythm: NSR, other - APCs ST Segments: no acute changes Other Impression no ST elevation normal axis nonspecific T wave pattern Chest X-Ray Diagnostic Results Chest X-Ray Diagnostic Results : Chest X-Ray Ordered: Yes Indication: Shortness of Breath EP Interpretation: Yes Interpretation: other - LLL infiltrate Electronically Signed by: This image has been electronically signed by Dr. Bharti Tamayo Last Vital Signs Date Time Temp Pulse Resp B/P (MAP) Pulse Ox O2 Delivery O2 Flow Rate FiO2 03/30/18 10:44 99.1 20 127/67 91 Room Air 99.1 03/30/18 10:44 95 Referrals: NON PHYSICIAN (PCP) Bharti Tamayo MD Mar 30, 2018 15:55
--- NOTE | 2018-03-30 15:59 | Infectious Diseases Prog Note ---
Assessment/Plan Problems: (1) CAP (community acquired pneumonia) Assessment & Plan: continue levaquin for 5-7 days (2) COPD exacerbation Assessment & Plan: due to the above, continue nebulizers and steroids (3) Diabetes mellitus Assessment & Plan: recommend tight glycemic control to keep blood glucose between 100-140 (4) Dizziness Assessment & Plan: rule out [employer] , recommend brain image if no improvement (5) HTN (hypertension) Subjective Allergies: Coded Allergies: No Known Allergies (Unverified , 08/07/17) Objective Vital Signs Last 24 Hour Vital Signs Date Time Temp Pulse Resp B/P (MAP) Pulse Ox O2 Delivery O2 Flow Rate FiO2 03/30/18 10:44 99.1 20 127/67 91 Room Air 99.1 03/30/18 10:44 95 20 Room Air 03/30/18 10:20 99.1 95 20 127/67 91 Room Air 99.1 Height (Feet): 5 Height (Inches): 2.00 Weight (Pounds): 140 Laboratory Tests Test 03/30/18 11:02 03/30/18 12:45 03/30/18 12:50 White Blood Count 21.0 K/UL (4.8-10.8) H Red Blood Count 4.39 M/UL (4.20-5.40) Hemoglobin 12.4 G/DL (12.0-16.0) Hematocrit 37.9 % (37.0-47.0) Mean Corpuscular Volume 86 FL (80-99) Mean Corpuscular Hemoglobin 28.3 PG (27.0-31.0) Mean Corpuscular Hemoglobin Concent 32.8 G/DL (32.0-36.0) Red Cell Distribution Width 12.7 % (11.6-14.8) Platelet Count 287 K/UL (150-450) Mean Platelet Volume 6.2 FL (6.5-10.1) L Neutrophils (%) (Auto) % (45.0-75.0) Lymphocytes (%) (Auto) % (20.0-45.0) Monocytes (%) (Auto) % (1.0-10.0) Eosinophils (%) (Auto) % (0.0-3.0) Basophils (%) (Auto) % (0.0-2.0) Differential Total Cells Counted 100 Neutrophils % (Manual) 85 % (45-75) H Lymphocytes % (Manual) 10 % (20-45) L Monocytes % (Manual) 5 % (1-10) Eosinophils % (Manual) 0 % (0-3) Basophils % (Manual) 0 % (0-2) Band Neutrophils 0 % (0-8) Platelet Estimate Adequate Platelet Morphology Normal Red Blood Cell Morphology Normal Sodium Level 137 MMOL/L (136-145) Potassium Level 3.9 MMOL/L (3.5-5.1) Chloride Level 102 MMOL/L (98-107) Carbon Dioxide Level 26 MMOL/L (21-32) Anion Gap 9 mmol/L (5-15) Blood Urea Nitrogen 17 mg/dL (7-18) Creatinine 1.4 MG/DL (0.55-1.30) H Estimat Glomerular Filtration Rate mL/min (>60) Glucose Level 165 MG/DL (74-106) H Lactic Acid Level 2.90 mmol/L (0.4-2.0) H 2.40 mmol/L (0.66-2.22) H Calcium Level 9.1 MG/DL (8.5-10.1) Total Bilirubin 0.6 MG/DL (0.2-1.0) Aspartate Amino Transf (AST/SGOT) 21 U/L (15-37) Alanine Aminotransferase (ALT/SGPT) 17 U/L (12-78) Alkaline Phosphatase 95 U/L (46-116) Troponin I 0.000 ng/mL (0.000-0.056) Pro-B-Type Natriuretic Peptide 1135 pg/mL (0-125) H Total Protein 7.8 G/DL (6.4-8.2) Albumin 3.1 G/DL (3.4-5.0) L Globulin 4.7 g/dL Albumin/Globulin Ratio 0.7 (1.0-2.7) L Urine Color Pale yellow Urine Appearance Clear Urine pH 6 (4.5-8.0) Urine Specific [place] 1.010 (1.005-1.035) Urine Protein Negative (NEGATIVE) Urine Glucose (UA) Negative (NEGATIVE) Urine Ketones Negative (NEGATIVE) Urine Blood Negative (NEGATIVE) Urine Nitrite Negative (NEGATIVE) Urine Bilirubin Negative (NEGATIVE) Urine Urobilinogen Normal MG/DL (0.0-1.0) Urine Leukocyte Esterase 1+ (NEGATIVE) H Urine RBC 0-2 /HPF (0 - 2) Urine WBC 2-4 /HPF (0 - 2) Urine Squamous Epithelial Cells Occasional /LPF Urine Bacteria Occasional /HPF (NONE) Current Medications Medications (Trade) Dose Ordered Sig/Delores Route PRN Reason Start Time Stop Time Status Last Admin Dose Admin Acetaminophen (Tylenol) 650 mg Q4H PRN ORAL Mild Pain (Pain Scale 1-3) 03/30/18 13:21 04/29/18 13:20 Albuterol/ Ipratropium (Albuterol/ Ipratropium) 3 ml Q6HRT HHN 03/30/18 19:00 04/04/18 18:59 Carbidopa/Levodopa (Sinemet 25/100) 1 tab THREE TIMES A DAY ORAL 03/30/18 18:00 04/29/18 17:59 Dextrose (Dextrose 50%) 25 ml STAT PRN IV Hypoglycemia 03/30/18 13:20 04/29/18 13:19 Dextrose (Dextrose 50%) 50 ml STAT PRN IV Hypoglycemia 03/30/18 13:20 04/29/18 13:19 Diphenhydramine HCl (Benadryl) 25 mg Q6H PRN ORAL Itching/Pruritis 03/30/18 13:21 04/29/18 13:20 Docusate Sodium (Colace) 100 mg EVERY 12 HOURS ORAL 03/30/18 21:00 04/29/18 20:59 Enoxaparin Sodium (Lovenox) 40 mg Q24H SUBQ 03/31/18 09:00 04/30/18 08:59 Famotidine (Pepcid) 40 mg DAILY ORAL 03/31/18 09:00 04/30/18 08:59 Levofloxacin 150 ml @ 100 mls/hr NOW ONCE IVPB 03/30/18 16:00 03/30/18 17:29 Levothyroxine Sodium (Synthroid) 50 mcg DAILY@0630 ORAL 03/31/18 06:30 04/30/18 06:29 Lisinopril (Zestril) 20 mg DAILY ORAL 03/31/18 09:00 04/30/18 08:59 Memantine (Namenda) 10 mg BID ORAL 03/30/18 18:00 04/29/18 17:59 Prednisone (predniSONE) 10 mg DAILY ORAL 03/31/18 09:00 04/30/18 08:59 Risperidone (RisperDAL) 0.25 mg DAILY ORAL 03/31/18 09:00 04/30/18 08:59 Sitagliptin Phosphate (Januvia) 100 mg ACBREAKFAST ORAL 03/31/18 06:30 04/30/18 06:29 Sodium Chloride 1,000 ml @ 75 mls/hr [id number] IVLG 03/30/18 14:54 04/29/18 14:53 Dustin Garg M.D. Mar 30, 2018 15:59
[2018-03-30 16:10] VITALS: BP 133/54
[2018-03-30] MEDS ORDERED: metFORMIN 500mg tab ORAL SCH (16:30)
[2018-03-30] MEDS: Levodopa/Carbidopa 25/100 tab ORAL SCH (18:27)
[2018-03-30] MEDS: Memantine 10mg tab ORAL SCH (18:27)
--- NOTE | 2018-03-30 19:00 | History and Physical Report ---
DATE OF ADMISSION: 03/30/2018 REASON FOR ADMISSION: 1. COPD exacerbation. 2. Acute renal failure. HISTORY OF PRESENT ILLNESS: The patient is a pleasant 87-year-old female brought in by family member, as noted this morning, the patient had decreased appetite, not feeling well and started difficulty breathing with a nonproductive cough. Family member started to note some wheezing as such brought the patient to the emergency room for further evaluation and care. Family members did give inhaler therapy with no avail, as she continued to have some shortness of breath. In the emergency room, she has improved and is being admitted for further evaluation management of acute renal failure and COPD exacerbation. ALLERGIES: No known drug allergies. PAST MEDICAL HISTORY: 1. Hypertension. 2. Diabetes mellitus. 3. COPD with reactive airway disease. 4. Dementia. PAST SURGICAL HISTORY: Hernia surgery. FAMILY HISTORY: Positive for hypertension and diabetes. SOCIAL HISTORY: No tobacco, alcohol, or illicit drug use. REVIEW OF SYSTEMS: NEUROLOGIC: The patient denies headache, change in vision, syncope or presyncopal episodes. CARDIOVASCULAR: No current chest pain, palpitations, or angina. PULMONARY: The patient was having some difficulty breathing with wheezing and a nonproductive sputum. GASTROINTESTINAL/GENITOURINARY: No changes in urinary or bowel habits. No nausea, vomiting, or diarrhea. ENDOCRINOLOGY: No night sweats, fevers, or chills. MUSCULOSKELETAL: The patient feeling weak, tired, and fatigued. PHYSICAL EXAMINATION: GENERAL: The patient awake, alert, not otherwise in distress. VITAL SIGNS: Blood pressure is 99.1 degrees, pulse 95, respiratory rate 20, blood pressure 127/67, and pulse oximetry 91% on room air. HEENT: Extraocular muscles intact. No lymphadenopathy noted. CARDIOVASCULAR: S1 and S2. No rubs or gallops. PULMONARY: Diffuse expiratory wheezing with basilar rales. ABDOMEN: Soft, nontender. EXTREMITY: No edema noted. LABORATORY DATA: Labs dated 03/30/2018, white cell count 21, hemoglobin 12.4, and platelet count 287. Sodium 137, potassium 3.9, creatinine 1.4, BUN 17, and calcium 9.1. IMAGING STUDIES: Chest x-ray significant for retrocardiac consolidation and possible small left pleural effusion. ASSESSMENT AND PLAN: 1. COPD exacerbation. At this time, the patient is on prednisone. We will continue inhaler therapy and consult Dr. Emerson, Pulmonary for further evaluation and management. 2. Community-acquired pneumonia with retrocardiac consolidation. We will initiate Levaquin and defer further antibiotic management per Infectious Disease. 3. Acute kidney injury secondary to volume depletion. We will initiate IV fluids and monitor renal function carefully while the patient is on lisinopril. 4. Diabetes mellitus. The patient to continue low carbonate diet along with low-sodium diet while being on antiglycemic medications. 5. DVT prophylaxis with Lovenox subcutaneous. Asa Reynolds MD DR: KITA JOB#: [id number] CC:
[2018-03-30] MEDS: Albuterol/Ipratropium 3ml neb HHN SCH (19:16)
--- NOTE | 2018-03-30 19:29 | Pulmonology Progress Note ---
Subjective Allergies: Coded Allergies: No Known Allergies (Unverified , 08/07/17) Objective Last 24 Hour Vital Signs Date Time Temp Pulse Resp B/P (MAP) Pulse Ox O2 Delivery O2 Flow Rate FiO2 03/30/18 19:26 89 16 98 Room Air 21 03/30/18 19:16 87 16 96 Room Air 21 03/30/18 19:15 88 16 Room Air 21 03/30/18 17:36 Room Air 03/30/18 16:10 133/54 03/30/18 12:35 99.1 20 132/78 91 Room Air 99.1 03/30/18 10:44 99.1 20 127/67 91 Room Air 99.1 03/30/18 10:44 95 20 Room Air 03/30/18 10:20 99.1 95 20 127/67 91 Room Air 99.1 Laboratory Tests 03/30/18 11:02: White Blood Count 21.0H, Red Blood Count 4.39, Hemoglobin 12.4, Hematocrit 37.9 , Mean Corpuscular Volume 86, Mean Corpuscular Hemoglobin 28.3, Mean Corpuscular Hemoglobin Concent 32.8, Red Cell Distribution Width 12.7, Platelet Count 287, Mean Platelet Volume 6.2L, Neutrophils (%) (Auto) , Lymphocytes (%) ( Auto) , Monocytes (%) (Auto) , Eosinophils (%) (Auto) , Basophils (%) (Auto) , Differential Total Cells Counted 100, Neutrophils % (Manual) 85H, Lymphocytes % (Manual) 10L, Monocytes % (Manual) 5, Eosinophils % (Manual) 0, Basophils % ( Manual) 0, Band Neutrophils 0, Platelet Estimate Adequate, Platelet Morphology Normal, Red Blood Cell Morphology Normal, Sodium Level 137, Potassium Level 3.9 , Chloride Level 102, Carbon Dioxide Level 26, Anion Gap 9, Blood Urea Nitrogen 17, Creatinine 1.4H, Estimat Glomerular Filtration Rate , Glucose Level 165H, Lactic Acid Level 2.90H, Calcium Level 9.1, Total Bilirubin 0.6, Aspartate Amino Transf (AST/SGOT) 21, Alanine Aminotransferase (ALT/SGPT) 17, Alkaline Phosphatase 95, Troponin I 0.000, Pro-B-Type Natriuretic Peptide 1135H, Total Protein 7.8, Albumin 3.1L, Globulin 4.7, Albumin/Globulin Ratio 0.7L 03/30/18 12:45: Urine Color Pale yellow, Urine Appearance Clear, Urine pH 6, Urine Specific [place] 1.010, Urine Protein Negative, Urine Glucose (UA) Negative, Urine Ketones Negative, Urine Blood Negative, Urine Nitrite Negative, Urine Bilirubin Negative, Urine Urobilinogen Normal, Urine Leukocyte Esterase 1+H, Urine RBC 0-2 , Urine WBC 2-4, Urine Squamous Epithelial Cells Occasional, Urine Bacteria Occasional 03/30/18 12:50: Lactic Acid Level 2.40H Current Medications Medications (Trade) Dose Ordered Sig/Delores Route PRN Reason Start Time Stop Time Status Last Admin Dose Admin Acetaminophen (Tylenol) 650 mg Q4H PRN ORAL Mild Pain (Pain Scale 1-3) 03/30/18 13:21 04/29/18 13:20 Albuterol/ Ipratropium (Albuterol/ Ipratropium) 3 ml Q6HRT HHN 03/30/18 19:00 04/04/18 18:59 03/30/18 19:16 Carbidopa/Levodopa (Sinemet 25/100) 1 tab THREE TIMES A DAY ORAL 03/30/18 18:00 04/29/18 17:59 03/30/18 18:27 Dextrose (Dextrose 50%) 25 ml STAT PRN IV Hypoglycemia 03/30/18 17:15 04/29/18 17:14 Dextrose (Dextrose 50%) 50 ml STAT PRN IV Hypoglycemia 03/30/18 17:15 04/29/18 17:14 Diphenhydramine HCl (Benadryl) 25 mg Q6H PRN ORAL Itching/Pruritis 03/30/18 13:21 04/29/18 13:20 Docusate Sodium (Colace) 100 mg EVERY 12 HOURS ORAL 03/30/18 21:00 04/29/18 20:59 Enoxaparin Sodium (Lovenox) 40 mg Q24H SUBQ 03/31/18 09:00 04/30/18 08:59 Famotidine (Pepcid) 40 mg DAILY ORAL 03/31/18 09:00 04/30/18 08:59 Insulin Aspart (NovoLOG) BEFORE MEALS AND HS SUBQ 03/30/18 21:00 04/29/18 20:59 Levofloxacin 50 ml @ 50 mls/hr Q24H IVPB 03/31/18 16:00 04/07/18 15:59 Levothyroxine Sodium (Synthroid) 50 mcg DAILY@0630 ORAL 03/31/18 06:30 04/30/18 06:29 Lisinopril (Zestril) 20 mg DAILY ORAL 03/31/18 09:00 04/30/18 08:59 Memantine (Namenda) 10 mg BID ORAL 03/30/18 18:00 04/29/18 17:59 03/30/18 18:27 Prednisone (predniSONE) 10 mg DAILY ORAL 03/31/18 09:00 04/30/18 08:59 Risperidone (RisperDAL) 0.25 mg DAILY ORAL 03/31/18 09:00 04/30/18 08:59 Sitagliptin Phosphate (Januvia) 100 mg ACBREAKFAST ORAL 03/31/18 06:30 04/30/18 06:29 Sodium Chloride 1,000 ml @ 75 mls/hr [id number] IVLG 03/30/18 14:54 04/29/18 14:53 03/30/18 17:22 Renny Emerson MD Mar 30, 2018 19:29
--- NOTE | 2018-03-30 19:34 | Consultation ---
Consult Note Consult Note 87-year-old female brought in by family member, with difficulty breathing with a nonproductive cough and some chest tightness. Patient noted to have some wheezing and difficulty with secretions. Patient was given Albuterol but did not improve overall symptoms. In the emergency room, Patient noted to have a diagnosis of acute renal failure and COPD exacerbation and now admitted. I was called to evaluate and assist with pulmonary issues and disposition MEDCIATIONS/ALLERGIES: reviewed PAST MEDICAL HISTORY: 1. Hypertension. 2. Diabetes mellitus. 3. COPD 4. Dementia. PAST SURGICAL HISTORY: Hernia surgery. FAMILY HISTORY: notable for hypertension and diabetes. SOCIAL HISTORY: nonsmoker or drinker; retired REVIEW OF SYSTEMS: all 10 points reviewed patient fatigued and confused PHYSICAL EXAMINATION: GENERAL: The patient awake, alert, NAD VITAL SIGNS: see note HEENT: Extraocular muscles intact. oropharynx clear; no thrush CARDIOVASCULAR: S1 and S2. No rubs or gallops. RRR PULMONARY: scattered expiratory wheezing with basilar rales. moderate air entry ABDOMEN: Soft, nontender. no distention EXTREMITY: No edema noted. no CC confused Laboratory Tests Test 03/30/18 11:02 03/30/18 12:45 03/30/18 12:50 White Blood Count 21.0 K/UL (4.8-10.8) H Red Blood Count 4.39 M/UL (4.20-5.40) Hemoglobin 12.4 G/DL (12.0-16.0) Hematocrit 37.9 % (37.0-47.0) Mean Corpuscular Volume 86 FL (80-99) Mean Corpuscular Hemoglobin 28.3 PG (27.0-31.0) Mean Corpuscular Hemoglobin Concent 32.8 G/DL (32.0-36.0) Red Cell Distribution Width 12.7 % (11.6-14.8) Platelet Count 287 K/UL (150-450) Mean Platelet Volume 6.2 FL (6.5-10.1) L Neutrophils (%) (Auto) % (45.0-75.0) Lymphocytes (%) (Auto) % (20.0-45.0) Monocytes (%) (Auto) % (1.0-10.0) Eosinophils (%) (Auto) % (0.0-3.0) Basophils (%) (Auto) % (0.0-2.0) Differential Total Cells Counted 100 Neutrophils % (Manual) 85 % (45-75) H Lymphocytes % (Manual) 10 % (20-45) L Monocytes % (Manual) 5 % (1-10) Eosinophils % (Manual) 0 % (0-3) Basophils % (Manual) 0 % (0-2) Band Neutrophils 0 % (0-8) Platelet Estimate Adequate Platelet Morphology Normal Red Blood Cell Morphology Normal Sodium Level 137 MMOL/L (136-145) Potassium Level 3.9 MMOL/L (3.5-5.1) Chloride Level 102 MMOL/L (98-107) Carbon Dioxide Level 26 MMOL/L (21-32) Anion Gap 9 mmol/L (5-15) Blood Urea Nitrogen 17 mg/dL (7-18) Creatinine 1.4 MG/DL (0.55-1.30) H Estimat Glomerular Filtration Rate mL/min (>60) Glucose Level 165 MG/DL (74-106) H Lactic Acid Level 2.90 mmol/L (0.4-2.0) H 2.40 mmol/L (0.66-2.22) H Calcium Level 9.1 MG/DL (8.5-10.1) Total Bilirubin 0.6 MG/DL (0.2-1.0) Aspartate Amino Transf (AST/SGOT) 21 U/L (15-37) Alanine Aminotransferase (ALT/SGPT) 17 U/L (12-78) Alkaline Phosphatase 95 U/L (46-116) Troponin I 0.000 ng/mL (0.000-0.056) Pro-B-Type Natriuretic Peptide 1135 pg/mL (0-125) H Total Protein 7.8 G/DL (6.4-8.2) Albumin 3.1 G/DL (3.4-5.0) L Globulin 4.7 g/dL Albumin/Globulin Ratio 0.7 (1.0-2.7) L Urine Color Pale yellow Urine Appearance Clear Urine pH 6 (4.5-8.0) Urine Specific [place] 1.010 (1.005-1.035) Urine Protein Negative (NEGATIVE) Urine Glucose (UA) Negative (NEGATIVE) Urine Ketones Negative (NEGATIVE) Urine Blood Negative (NEGATIVE) Urine Nitrite Negative (NEGATIVE) Urine Bilirubin Negative (NEGATIVE) Urine Urobilinogen Normal MG/DL (0.0-1.0) Urine Leukocyte Esterase 1+ (NEGATIVE) H Urine RBC 0-2 /HPF (0 - 2) Urine WBC 2-4 /HPF (0 - 2) Urine Squamous Epithelial Cells Occasional /LPF Urine Bacteria Occasional /HPF (NONE) IMPRESSION COPD with exacerbation bronchospasm wheeze dementia ARF PLAN IV hydration antibiotics respiratory care IV steroids DVT prophylaxis impression, plan, and exam edited and reviewed in detail care discussed with Renny Laughlin MD Mar 30, 2018 19:34
[2018-03-30 19:55] VITALS: BP 133/67
[2018-03-30] MEDS: Docusate 100mg cap ORAL SCH (20:12)
[2018-03-30] MEDS: NovoLOG Insulin Flexpen SUBQ SCH (20:15)
--- NOTE | 2018-03-30 22:00 | Consultation ---
DATE OF CONSULTATION: 03/30/2018 INFECTIOUS DISEASE CONSULTATION CONSULTING PHYSICIAN: Dustin Garg M.D. REQUESTING PHYSICIAN: Asa Reynolds M.D. REASON FOR CONSULTATION: Community-acquired pneumonia with COPD exacerbation, recommendation for antibiotics treatment. HISTORY OF PRESENT ILLNESS: The patient is an 87-year-old female with past medical history of COPD, diabetes, hypertension, hyperlipidemia and possible dementia was brought into [facility] emergency room by her daughter for dizziness and congestion in her chest. The patient was having cough, nonproductive so far with chest congestion for the last couple of days. No fever or chills. No recent travel or sick contact. The patient denied any fever or chills. Chest x-ray in the emergency room showed cardiomegaly with interstitial congestion and retrocardiac consolidation concerning for pneumonia. So, she was started on levofloxacin and Infectious Disease consultation was requested for antibiotics treatment and further management. REVIEW OF SYSTEMS: A 14-point of system reviewed were all negative apart from the one I mentioned above in my History and Physical. PAST MEDICAL HISTORY: Significant for COPD, diabetes, hypertension, hyperlipidemia and dementia. PAST SURGICAL HISTORY: Not on record. ALLERGIES: She has no known drug allergy. MEDICATIONS: The patient was given levofloxacin 750 mg once x1 and for the rest of her medications, please refer to MAR. FAMILY HISTORY: Negative for recurrent infection or immunocompromised condition. SOCIAL HISTORY: The patient lives at home with daughter. Denied using drugs, tobacco, or alcohol. PHYSICAL EXAMINATION: GENERAL: An elderly female, lying in bed, Guamanian speaker, daughter at the bedside. Awake, alert, cooperative, not in acute distress. VITAL SIGNS: Temperature 99.1 degrees, pulse 95, respirations 20, blood pressure 127/67 and saturation 91% on room air. HEENT: Normocephalic and atraumatic. Pupils are reactive to light. Moist oral mucosa. No exudate or thrush. Pale sclera. NECK: Supple. No lymphadenopathy. CARDIOVASCULAR: Regular rate and rhythm. No murmur or gallop. LUNGS: She had wheezing with crackles at the bases, mainly normal breathing effort. ABDOMEN: Soft, nontender, nondistended. Normal bowel sounds. No hepatosplenomegaly or ascites. No local tenderness. EXTREMITIES: No edema or cyanosis. LABORATORY AND DIAGNOSTIC DATA: Labs showed white count of 21,000, hemoglobin of 12.4 and platelet count of 287. BUN of 17 and creatinine of 1.4. AST of 21 and ALT of 17. Urinalysis showed +1 leukocyte esterase, wbc's 2 to 4 and occasional bacteria. Imaging, chest x-ray showed cardiomegaly, mild interstitial congestion and retrocardiac consolidation, possible small left pleural effusion. ASSESSMENT AND RECOMMENDATION: 1. Community-acquired pneumonia. Continue Levaquin for 5 to 7 days based on her clinical improvement. 2. COPD exacerbation due to the above. Continue nebulizers and steroids. Monitor chest x-ray. 3. Diabetes mellitus. Recommend tight glycemic control to keep blood glucose between 100 to 140, since she is on steroids. 4. Dizziness, rule out LOADING CHECKER pathology. I recommend brain image if no improvement to rule out TIA. 5. Hypertension. Continue blood pressure medicine. Thank you for the consult. ID will continue to follow. Dustin Garg M.D. DR: DIAZ JOB#: [id number] CC:
[2018-03-31 00:29] VITALS: BP 133/60
[2018-03-31] MEDS: Albuterol/Ipratropium 3ml neb HHN SCH ×4 (01:32→19:07)
[2018-03-31 04:23] VITALS: BP 125/56
[2018-03-31] MEDS: NovoLOG Insulin Flexpen SUBQ SCH ×4 (06:29→21:03)
[2018-03-31 07:19] LABS: BASOPHILS % (AUTO) 0.4 % (0.0-2.0); EOSINOPHILS % (AUTO) 0.3 % (0.0-3.0); HEMATOCRIT 32.5 % (37.0-47.0); LYMPHOCYTES % (AUTO) 11.3 % (20.0-45.0); MEAN CORPUSCULAR VOLUME 86 FL (80-99); MONOCYTES % (AUTO) 5.1 % (1.0-10.0); NEUTROPHILS % (AUTO) 82.8 % (45.0-75.0); PLATELET COUNT 245 K/UL (150-450); RED BLOOD COUNT 3.77 M/UL (4.20-5.40); RED CELL DISTRIBUTION WIDTH 12.7 % (11.6-14.8); WHITE BLOOD COUNT 16.6 K/UL (4.8-10.8)
[2018-03-31 07:47] LABS: ANION GAP 8 mmol/L (5-15); BLOOD UREA NITROGEN 16 mg/dL (7-18); CALCIUM 8.6 MG/DL (8.5-10.1); CARBON DIOXIDE 25 MMOL/L (21-32); CHLORIDE 104 MMOL/L (98-107); CREATININE 1.1 MG/DL (0.55-1.30); POTASSIUM 3.7 MMOL/L (3.5-5.1); SODIUM 137 MMOL/L (136-145)
[2018-03-31 08:00] VITALS: BP 107/59
--- NOTE | 2018-03-31 08:22 | Nephrology Progress Note ---
Assessment/Plan Assessment/Plan A/P 1) BROWN- resolved, Cr 1.1 - due to volume depletion. Continue IVFs 2) HCAP- on levaquin. Appreciate ID assistance 3) COPD Exac- appreciate pulm assistance 4) DVT prophylaxisis- lovenox 5) DM- on ISS and oral agents Disposition- DC tomorrow on po levaquin as long as WBC improved. PT today Subjective Date patient seen: Mar 31, 2018 Time patient seen: 08:18 ROS Limited/Unobtainable: No Respiratory: Reports: shortness of breath Allergies: Coded Allergies: No Known Allergies (Unverified , 08/07/17) All Systems: reviewed and negative except above Subjective Patient breathing much improved. Resting comfortably Objective Last 24 Hour Vital Signs Date Time Temp Pulse Resp B/P (MAP) Pulse Ox O2 Delivery O2 Flow Rate FiO2 03/31/18 08:00 99.5 75 18 107/59 (75) 94 99.5 03/31/18 07:51 84 20 96 Room Air 21 03/31/18 07:51 Room Air 21 03/31/18 04:23 98.2 89 18 125/56 (79) 95 98.2 03/31/18 04:00 88 03/31/18 01:40 88 20 98 Room Air 21 03/31/18 01:30 88 20 95 Room Air 21 03/31/18 00:29 97.5 91 17 133/60 (84) 93 97.5 03/31/18 00:00 93 03/30/18 21:00 Room Air 03/30/18 20:00 94 03/30/18 19:55 98.4 89 16 133/67 (89) 99 98.4 03/30/18 19:54 99.1 16 133/54 98 Room Air 21 99.1 03/30/18 19:26 89 16 98 Room Air 21 03/30/18 19:16 87 16 96 Room Air 21 03/30/18 19:15 88 16 Room Air 21 03/30/18 17:36 Room Air 03/30/18 16:10 133/54 03/30/18 12:35 99.1 20 132/78 91 Room Air 99.1 03/30/18 10:44 99.1 20 127/67 91 Room Air 99.1 03/30/18 10:44 95 20 Room Air 03/30/18 10:20 99.1 95 20 127/67 91 Room Air 99.1 Intake and Output 03/30/18 03/31/18 19:00 07:00 Intake Total 195 ml 300 ml Balance 195 ml 300 ml Intake Oral 120 ml IV Total 75 ml 300 ml # Voids 1 5 # Bowel Movements 1 Laboratory Tests 03/30/18 11:02: White Blood Count 21.0H, Red Blood Count 4.39, Hemoglobin 12.4, Hematocrit 37.9 , Mean Corpuscular Volume 86, Mean Corpuscular Hemoglobin 28.3, Mean Corpuscular Hemoglobin Concent 32.8, Red Cell Distribution Width 12.7, Platelet Count 287, Mean Platelet Volume 6.2L, Neutrophils (%) (Auto) , Lymphocytes (%) ( Auto) , Monocytes (%) (Auto) , Eosinophils (%) (Auto) , Basophils (%) (Auto) , Differential Total Cells Counted 100, Neutrophils % (Manual) 85H, Lymphocytes % (Manual) 10L, Monocytes % (Manual) 5, Eosinophils % (Manual) 0, Basophils % ( Manual) 0, Band Neutrophils 0, Platelet Estimate Adequate, Platelet Morphology Normal, Red Blood Cell Morphology Normal, Sodium Level 137, Potassium Level 3.9 , Chloride Level 102, Carbon Dioxide Level 26, Anion Gap 9, Blood Urea Nitrogen 17, Creatinine 1.4H, Estimat Glomerular Filtration Rate , Glucose Level 165H, Lactic Acid Level 2.90H, Calcium Level 9.1, Total Bilirubin 0.6, Aspartate Amino Transf (AST/SGOT) 21, Alanine Aminotransferase (ALT/SGPT) 17, Alkaline Phosphatase 95, Troponin I 0.000, Pro-B-Type Natriuretic Peptide 1135H, Total Protein 7.8, Albumin 3.1L, Globulin 4.7, Albumin/Globulin Ratio 0.7L 03/30/18 12:45: Urine Color Pale yellow, Urine Appearance Clear, Urine pH 6, Urine Specific [place] 1.010, Urine Protein Negative, Urine Glucose (UA) Negative, Urine Ketones Negative, Urine Blood Negative, Urine Nitrite Negative, Urine Bilirubin Negative, Urine Urobilinogen Normal, Urine Leukocyte Esterase 1+H, Urine RBC 0-2 , Urine WBC 2-4, Urine Squamous Epithelial Cells Occasional, Urine Bacteria Occasional 03/30/18 12:50: Lactic Acid Level 2.40H 03/31/18 06:20: White Blood Count 16.6H, Red Blood Count 3.77L, Hemoglobin 11.0L, Hematocrit 32.5L, Mean Corpuscular Volume 86, Mean Corpuscular Hemoglobin 29.3, Mean Corpuscular Hemoglobin Concent 33.9, Red Cell Distribution Width 12.7, Platelet Count 245, Mean Platelet Volume 5.8L, Neutrophils (%) (Auto) 82.8H, Lymphocytes (%) (Auto) 11.3L, Monocytes (%) (Auto) 5.1, Eosinophils (%) (Auto) 0.3, Basophils (%) (Auto) 0.4, Sodium Level 137, Potassium Level 3.7, Chloride Level 104, Carbon Dioxide Level 25, Anion Gap 8, Blood Urea Nitrogen 16, Creatinine 1.1, Estimat Glomerular Filtration Rate , Glucose Level 127H, Calcium Level 8.6 Height (Feet): 5 Height (Inches): 2.00 Weight (Pounds): 147 General Appearance: WD/WN, no apparent distress EENT: PERRL/EOMI Neck: non-tender, normal alignment Cardiovascular: normal rate, regular rhythm Respiratory/Chest: lungs clear, normal breath sounds Abdomen: non tender, soft Edema: no edema noted Arm (L), no edema noted Arm (R), no edema noted Leg (L), no edema noted Leg (R), no edema noted Pedal (L), no edema noted Pedal (R), no edema noted Generalized Asa Reynolds MD Mar 31, 2018 08:22
[2018-03-31] MEDS: Docusate 100mg cap ORAL SCH ×2 (08:33→21:00)
[2018-03-31] MEDS: Lisinopril 10mg tab ORAL SCH (08:33)
[2018-03-31] MEDS: Memantine 10mg tab ORAL SCH (08:33)
[2018-03-31] MEDS: Levodopa/Carbidopa 25/100 tab ORAL SCH ×3 (08:33→18:28)
[2018-03-31] MEDS: Enoxaparin 40mg Inj SUBQ SCH (08:38)
--- NOTE | 2018-03-31 08:48 | Pulmonology Progress Note ---
Assessment/Plan Assessment/Plan IMPRESSION COPD with exacerbation bronchospasm wheeze dementia ARF ?pulmonary fibrosis PLAN IV hydration with caution antibiotics noted respiratory care IV steroids- dc after today DVT prophylaxis impression, plan, and exam edited and reviewed in detail care discussed with RN Subjective Allergies: Coded Allergies: No Known Allergies (Unverified , 08/07/17) Subjective confused pleasant NAD Objective Last 24 Hour Vital Signs Date Time Temp Pulse Resp B/P (MAP) Pulse Ox O2 Delivery O2 Flow Rate FiO2 03/31/18 08:33 107/59 03/31/18 08:00 99.5 75 18 107/59 (75) 94 99.5 03/31/18 07:51 84 20 96 Room Air 21 03/31/18 07:51 Room Air 21 03/31/18 04:23 98.2 89 18 125/56 (79) 95 98.2 03/31/18 04:00 88 03/31/18 01:40 88 20 98 Room Air 21 03/31/18 01:30 88 20 95 Room Air 21 03/31/18 00:29 97.5 91 17 133/60 (84) 93 97.5 03/31/18 00:00 93 03/30/18 21:00 Room Air 03/30/18 20:00 94 03/30/18 19:55 98.4 89 16 133/67 (89) 99 98.4 03/30/18 19:54 99.1 16 133/54 98 Room Air 21 99.1 03/30/18 19:26 89 16 98 Room Air 21 03/30/18 19:16 87 16 96 Room Air 21 03/30/18 19:15 88 16 Room Air 21 03/30/18 17:36 Room Air 03/30/18 16:10 133/54 03/30/18 12:35 99.1 20 132/78 91 Room Air 99.1 03/30/18 10:44 99.1 20 127/67 91 Room Air 99.1 03/30/18 10:44 95 20 Room Air 03/30/18 10:20 99.1 95 20 127/67 91 Room Air 99.1 Intake and Output 03/30/18 03/31/18 19:00 07:00 Intake Total 195 ml 300 ml Balance 195 ml 300 ml Intake Oral 120 ml IV Total 75 ml 300 ml # Voids 1 5 # Bowel Movements 1 Objective WDWN NAD reduced breath sounds bilaterally with basilar crackles [id number] without MRG NABS nontender no HSM no CCE nonfocal Laboratory Tests 03/30/18 11:02: White Blood Count 21.0H, Red Blood Count 4.39, Hemoglobin 12.4, Hematocrit 37.9 , Mean Corpuscular Volume 86, Mean Corpuscular Hemoglobin 28.3, Mean Corpuscular Hemoglobin Concent 32.8, Red Cell Distribution Width 12.7, Platelet Count 287, Mean Platelet Volume 6.2L, Neutrophils (%) (Auto) , Lymphocytes (%) ( Auto) , Monocytes (%) (Auto) , Eosinophils (%) (Auto) , Basophils (%) (Auto) , Differential Total Cells Counted 100, Neutrophils % (Manual) 85H, Lymphocytes % (Manual) 10L, Monocytes % (Manual) 5, Eosinophils % (Manual) 0, Basophils % ( Manual) 0, Band Neutrophils 0, Platelet Estimate Adequate, Platelet Morphology Normal, Red Blood Cell Morphology Normal, Sodium Level 137, Potassium Level 3.9 , Chloride Level 102, Carbon Dioxide Level 26, Anion Gap 9, Blood Urea Nitrogen 17, Creatinine 1.4H, Estimat Glomerular Filtration Rate , Glucose Level 165H, Lactic Acid Level 2.90H, Calcium Level 9.1, Total Bilirubin 0.6, Aspartate Amino Transf (AST/SGOT) 21, Alanine Aminotransferase (ALT/SGPT) 17, Alkaline Phosphatase 95, Troponin I 0.000, Pro-B-Type Natriuretic Peptide 1135H, Total Protein 7.8, Albumin 3.1L, Globulin 4.7, Albumin/Globulin Ratio 0.7L 03/30/18 12:45: Urine Color Pale yellow, Urine Appearance Clear, Urine pH 6, Urine Specific [place] 1.010, Urine Protein Negative, Urine Glucose (UA) Negative, Urine Ketones Negative, Urine Blood Negative, Urine Nitrite Negative, Urine Bilirubin Negative, Urine Urobilinogen Normal, Urine Leukocyte Esterase 1+H, Urine RBC 0-2 , Urine WBC 2-4, Urine Squamous Epithelial Cells Occasional, Urine Bacteria Occasional 03/30/18 12:50: Lactic Acid Level 2.40H 03/31/18 06:20: White Blood Count 16.6H, Red Blood Count 3.77L, Hemoglobin 11.0L, Hematocrit 32.5L, Mean Corpuscular Volume 86, Mean Corpuscular Hemoglobin 29.3, Mean Corpuscular Hemoglobin Concent 33.9, Red Cell Distribution Width 12.7, Platelet Count 245, Mean Platelet Volume 5.8L, Neutrophils (%) (Auto) 82.8H, Lymphocytes (%) (Auto) 11.3L, Monocytes (%) (Auto) 5.1, Eosinophils (%) (Auto) 0.3, Basophils (%) (Auto) 0.4, Sodium Level 137, Potassium Level 3.7, Chloride Level 104, Carbon Dioxide Level 25, Anion Gap 8, Blood Urea Nitrogen 16, Creatinine 1.1, Estimat Glomerular Filtration Rate , Glucose Level 127H, Calcium Level 8.6 Current Medications Medications (Trade) Dose Ordered Sig/Delores Route PRN Reason Start Time Stop Time Status Last Admin Dose Admin Acetaminophen (Tylenol) 650 mg Q4H PRN ORAL Mild Pain (Pain Scale 1-3) 03/30/18 13:21 04/29/18 13:20 Albuterol/ Ipratropium (Albuterol/ Ipratropium) 3 ml Q6HRT HHN 03/30/18 19:00 04/04/18 18:59 03/31/18 01:32 Carbidopa/Levodopa (Sinemet 25/100) 1 tab THREE TIMES A DAY ORAL 03/30/18 18:00 04/29/18 17:59 03/31/18 08:33 Dextrose (Dextrose 50%) 25 ml STAT PRN IV Hypoglycemia 03/30/18 17:15 04/29/18 17:14 Dextrose (Dextrose 50%) 50 ml STAT PRN IV Hypoglycemia 03/30/18 17:15 04/29/18 17:14 Diphenhydramine HCl (Benadryl) 25 mg Q6H PRN ORAL Itching/Pruritis 03/30/18 13:21 04/29/18 13:20 03/30/18 22:27 Docusate Sodium (Colace) 100 mg EVERY 12 HOURS ORAL 03/30/18 21:00 04/29/18 20:59 03/31/18 08:33 Enoxaparin Sodium (Lovenox) 40 mg Q24H SUBQ 03/31/18 09:00 04/30/18 08:59 03/31/18 08:38 Famotidine (Pepcid) 40 mg DAILY ORAL 03/31/18 09:00 04/30/18 08:59 03/31/18 08:33 Insulin Aspart (NovoLOG) BEFORE MEALS AND HS SUBQ 03/30/18 21:00 04/29/18 20:59 03/31/18 06:29 Levofloxacin (Levaquin) 250 mg DAILY ORAL 03/31/18 09:00 04/07/18 08:59 Levothyroxine Sodium (Synthroid) 50 mcg DAILY@0630 ORAL 03/31/18 06:30 04/30/18 06:29 03/31/18 06:26 Lisinopril (Zestril) 20 mg DAILY ORAL 03/31/18 09:00 04/30/18 08:59 03/31/18 08:33 Memantine (Namenda) 10 mg BID ORAL 03/30/18 18:00 04/29/18 17:59 03/31/18 08:33 Prednisone (predniSONE) 10 mg DAILY ORAL 03/31/18 09:00 04/30/18 08:59 03/31/18 08:34 Risperidone (RisperDAL) 0.25 mg DAILY ORAL 03/31/18 09:00 04/30/18 08:59 03/31/18 08:33 Sitagliptin Phosphate (Januvia) 100 mg ACBREAKFAST ORAL 03/31/18 06:30 04/30/18 06:29 03/31/18 06:26 Renny Emerson MD Mar 31, 2018 08:48
[2018-03-31] MEDS ORDERED: Haloperidol 5mg/ml Inj IM PRN (10:45)
[2018-03-31] MEDS ORDERED: LORazepam Inj 2mg/ml 1ml IM PRN (10:45)
--- NOTE | 2018-03-31 10:49 | Consultation ---
History of Present Illness General Date patient seen: Mar 31, 2018 Chief Complaint: Upper Respiratory Illness Present Illness HPI 87-year-old female who was brought in for decreased appetite, not feeling well and started difficulty breathing with a nonproductive cough. The pt is more confused and has been agitated today attempts to through self on the floor. She is unable to provide meaningful hx. Allergies: Coded Allergies: No Known Allergies (Unverified , 08/07/17) Medication History Scheduled Albuterol Sulfate* (Albuterol Sulfate Hhn*), 3 ML INH PRN, (Reported) Atorvastatin (Lipitor), 80 MG ORAL BEDTIME, (Reported) Levodopa/Carbidopa (Carbidopa-Levodopa 25-100 Tab), 1 TAB ORAL THREE TIMES A DAY , (Reported) Levofloxacin* (Levaquin*), 500 MG ORAL DAILY Levothyroxine Sodium* (Levothyroxine Sodium*), 50 MCG ORAL DAILY, (Reported) Lisinopril (Lisinopril*), 20 MG ORAL DAILY, (Reported) Memantine Hcl* (Namenda*), 10 MG ORAL TWICE A DAY, (Reported) Metformin Hcl* (Metformin Hcl*), 500 MG ORAL DAILY, (Reported) Prednisone (Prednisone), 10 MG PO DAILY Risperidone* (Risperdal*), 0.25 MG ORAL DAILY, (Reported) Miscellaneous Medications Sitagliptin* (Januvia*), 100 MG ORAL, (Reported) Patient History Limited by: medical condition History Provided By: Medical Record, PMD Healthcare decision maker Resuscitation status Advanced Directive on File Past Medical/Surgical History Past Medical/Surgical History: (1) CAP (community acquired pneumonia) (2) Acute respiratory failure with hypoxia (3) Dizziness (4) Diabetes mellitus (5) HTN (hypertension) (6) COPD exacerbation Review of Systems Psychiatric: Reports: prior hx, anxiety, emotional problems, hallucinations Physical Exam General Appearance: no apparent distress, alert - waxing and waning , confused Last 24 Hour Vital Signs Date Time Temp Pulse Resp B/P (MAP) Pulse Ox O2 Delivery O2 Flow Rate FiO2 03/31/18 09:00 Room Air 03/31/18 08:33 107/59 03/31/18 08:00 80 03/31/18 08:00 99.5 75 18 107/59 (75) 94 99.5 03/31/18 07:51 84 20 96 Room Air 21 03/31/18 07:51 Room Air 03/31/18 04:23 98.2 89 18 125/56 (79) 95 98.2 03/31/18 04:00 88 03/31/18 01:40 88 20 98 Room Air 21 03/31/18 01:30 88 20 95 Room Air 21 03/31/18 00:29 97.5 91 17 133/60 (84) 93 97.5 03/31/18 00:00 93 03/30/18 21:00 Room Air 03/30/18 20:00 94 03/30/18 19:55 98.4 89 16 133/67 (89) 99 98.4 03/30/18 19:54 99.1 16 133/54 98 Room Air 21 99.1 03/30/18 19:26 89 16 98 Room Air 03/30/18 19:16 87 16 96 Room Air 03/30/18 19:15 88 16 Room Air 03/30/18 17:36 Room Air 03/30/18 16:10 133/54 03/30/18 12:35 99.1 20 132/78 91 Room Air 99.1 Intake and Output 03/30/18 03/31/18 19:00 07:00 Intake Total 195 ml 300 ml Balance 195 ml 300 ml Intake Oral 120 ml IV Total 75 ml 300 ml # Voids 1 5 # Bowel Movements 1 Laboratory Tests Test 03/30/18 11:02 03/30/18 12:45 03/30/18 12:50 03/31/18 06:20 White Blood Count 21.0 K/UL (4.8-10.8) H 16.6 K/UL (4.8-10.8) H Red Blood Count 4.39 M/UL (4.20-5.40) 3.77 M/UL (4.20-5.40) L Hemoglobin 12.4 G/DL (12.0-16.0) 11.0 G/DL (12.0-16.0) L Hematocrit 37.9 % (37.0-47.0) 32.5 % (37.0-47.0) L Mean Corpuscular Volume 86 FL (80-99) 86 FL (80-99) Mean Corpuscular Hemoglobin 28.3 PG (27.0-31.0) 29.3 PG (27.0-31.0) Mean Corpuscular Hemoglobin Concent 32.8 G/DL (32.0-36.0) 33.9 G/DL (32.0-36.0) Red Cell Distribution Width 12.7 % (11.6-14.8) 12.7 % (11.6-14.8) Platelet Count 287 K/UL (150-450) 245 K/UL (150-450) Mean Platelet Volume 6.2 FL (6.5-10.1) L 5.8 FL (6.5-10.1) L Neutrophils (%) (Auto) % (45.0-75.0) 82.8 % (45.0-75.0) H Lymphocytes (%) (Auto) % (20.0-45.0) 11.3 % (20.0-45.0) L Monocytes (%) (Auto) % (1.0-10.0) 5.1 % (1.0-10.0) Eosinophils (%) (Auto) % (0.0-3.0) 0.3 % (0.0-3.0) Basophils (%) (Auto) % (0.0-2.0) 0.4 % (0.0-2.0) Differential Total Cells Counted 100 Neutrophils % (Manual) 85 % (45-75) H Lymphocytes % (Manual) 10 % (20-45) L Monocytes % (Manual) 5 % (1-10) Eosinophils % (Manual) 0 % (0-3) Basophils % (Manual) 0 % (0-2) Band Neutrophils 0 % (0-8) Platelet Estimate Adequate Platelet Morphology Normal Red Blood Cell Morphology Normal Sodium Level 137 MMOL/L (136-145) 137 MMOL/L (136-145) Potassium Level 3.9 MMOL/L (3.5-5.1) 3.7 MMOL/L (3.5-5.1) Chloride Level 102 MMOL/L (98-107) 104 MMOL/L (98-107) Carbon Dioxide Level 26 MMOL/L (21-32) 25 MMOL/L (21-32) Anion Gap 9 mmol/L (5-15) 8 mmol/L (5-15) Blood Urea Nitrogen 17 mg/dL (7-18) 16 mg/dL (7-18) Creatinine 1.4 MG/DL (0.55-1.30) H 1.1 MG/DL (0.55-1.30) Estimat Glomerular Filtration Rate mL/min (>60) mL/min (>60) Glucose Level 165 MG/DL (74-106) H 127 MG/DL (74-106) H Lactic Acid Level 2.90 mmol/L (0.4-2.0) H 2.40 mmol/L (0.66-2.22) H Calcium Level 9.1 MG/DL (8.5-10.1) 8.6 MG/DL (8.5-10.1) Total Bilirubin 0.6 MG/DL (0.2-1.0) Aspartate Amino Transf (AST/SGOT) 21 U/L (15-37) Alanine Aminotransferase (ALT/SGPT) 17 U/L (12-78) Alkaline Phosphatase 95 U/L (46-116) Troponin I 0.000 ng/mL (0.000-0.056) Pro-B-Type Natriuretic Peptide 1135 pg/mL (0-125) H Total Protein 7.8 G/DL (6.4-8.2) Albumin 3.1 G/DL (3.4-5.0) L Globulin 4.7 g/dL Albumin/Globulin Ratio 0.7 (1.0-2.7) L Urine Color Pale yellow Urine Appearance Clear Urine pH 6 (4.5-8.0) Urine Specific [place] 1.010 (1.005-1.035) Urine Protein Negative (NEGATIVE) Urine Glucose (UA) Negative (NEGATIVE) Urine Ketones Negative (NEGATIVE) Urine Blood Negative (NEGATIVE) Urine Nitrite Negative (NEGATIVE) Urine Bilirubin Negative (NEGATIVE) Urine Urobilinogen Normal MG/DL (0.0-1.0) Urine Leukocyte Esterase 1+ (NEGATIVE) H Urine RBC 0-2 /HPF (0 - 2) Urine WBC 2-4 /HPF (0 - 2) Urine Squamous Epithelial Cells Occasional /LPF Urine Bacteria Occasional /HPF (NONE) Height (Feet): 5 Height (Inches): 2.00 Weight (Pounds): 147 Medications Current Medications Medications (Trade) Dose Ordered Sig/Delores Route PRN Reason Start Time Stop Time Status Last Admin Dose Admin Acetaminophen (Tylenol) 650 mg Q4H PRN ORAL Mild Pain (Pain Scale 1-3) 03/30/18 13:21 04/29/18 13:20 Albuterol/ Ipratropium (Albuterol/ Ipratropium) 3 ml Q6HRT HHN 03/30/18 19:00 04/04/18 18:59 03/31/18 01:32 Carbidopa/Levodopa (Sinemet 25/100) 1 tab THREE TIMES A DAY ORAL 03/30/18 18:00 04/29/18 17:59 03/31/18 08:33 Dextrose (Dextrose 50%) 25 ml STAT PRN IV Hypoglycemia 03/30/18 17:15 04/29/18 17:14 Dextrose (Dextrose 50%) 50 ml STAT PRN IV Hypoglycemia 03/30/18 17:15 04/29/18 17:14 Diphenhydramine HCl (Benadryl) 25 mg Q6H PRN ORAL Itching/Pruritis 03/30/18 13:21 04/29/18 13:20 03/30/18 22:27 Docusate Sodium (Colace) 100 mg EVERY 12 HOURS ORAL 03/30/18 21:00 04/29/18 20:59 03/31/18 08:33 Enoxaparin Sodium (Lovenox) 40 mg Q24H SUBQ 03/31/18 09:00 04/30/18 08:59 03/31/18 08:38 Famotidine (Pepcid) 40 mg DAILY ORAL 03/31/18 09:00 04/30/18 08:59 03/31/18 08:33 Insulin Aspart (NovoLOG) BEFORE MEALS AND HS SUBQ 03/30/18 21:00 04/29/18 20:59 03/31/18 06:29 Levofloxacin (Levaquin) 250 mg DAILY ORAL 03/31/18 09:00 04/07/18 08:59 03/31/18 08:49 Levothyroxine Sodium (Synthroid) 50 mcg DAILY@0630 ORAL 03/31/18 06:30 04/30/18 06:29 03/31/18 06:26 Lisinopril (Zestril) 20 mg DAILY ORAL 03/31/18 09:00 04/30/18 08:59 03/31/18 08:33 Memantine (Namenda) 10 mg BID ORAL 03/30/18 18:00 04/29/18 17:59 03/31/18 08:33 Prednisone (predniSONE) 10 mg DAILY ORAL 03/31/18 09:00 04/30/18 08:59 03/31/18 08:34 Risperidone (RisperDAL) 0.25 mg DAILY ORAL 03/31/18 09:00 04/30/18 08:59 03/31/18 08:33 Sitagliptin Phosphate (Januvia) 100 mg ACBREAKFAST ORAL 03/31/18 06:30 04/30/18 06:29 03/31/18 06:26 Assessment/Plan Assessment/Plan encephalopathy due to gmc Agitation -dc risperdal -start seroquel 50mg tid -haldol im prn -ativan im prn Eleni Reyes MD Mar 31, 2018 10:49
[2018-03-31 12:00] VITALS: BP 108/49
[2018-03-31 16:00] VITALS: BP 104/56
[2018-03-31 20:00] VITALS: BP 100/46
--- NOTE | 2018-03-31 21:46 | Infectious Diseases Prog Note ---
Assessment/Plan Problems: (1) CAP (community acquired pneumonia) Assessment & Plan: continue levaquin for 5-7 days depending on clinical improvement , consider vaccination for influenza (2) COPD exacerbation Assessment & Plan: due to the above, continue nebulizers and steroids (3) Diabetes mellitus Assessment & Plan: recommend tight glycemic control to keep blood glucose between 100-140 (4) Dizziness Assessment & Plan: rule out SURGICAL LEAD , recommend brain image if no improvement (5) HTN (hypertension) Assessment & Plan: continue meds to keep SBP <140 Subjective Constitutional: Reports: no symptoms HEENT: Reports: no symptoms Respiratory: Reports: dry cough Breasts: Reports: no symptoms Cardiovascular: Reports: no symptoms Gastrointestinal/Abdominal: Reports: no symptoms Genitourinary: Reports: no symptoms Neurologic: Reports: no symptoms Psychiatric: Reports: no symptoms Skin: Reports: no symptoms Endocrine: Reports: no symptoms Hematologic: Reports: no symptoms Musculoskeletal: Reports: no symptoms Allergies: Coded Allergies: No Known Allergies (Unverified , 08/07/17) Objective Vital Signs Last 24 Hour Vital Signs Date Time Temp Pulse Resp B/P (MAP) Pulse Ox O2 Delivery O2 Flow Rate FiO2 03/31/18 20:00 97.2 84 17 100/46 (64) 93 97.2 03/31/18 20:00 66 03/31/18 19:24 72 20 95 Room Air 21 03/31/18 19:09 68 22 93 Room Air 21 03/31/18 16:00 88 03/31/18 16:00 97.7 84 18 104/56 (72) 93 97.7 03/31/18 13:33 71 20 99 Room Air 21 03/31/18 13:25 70 20 95 Room Air 21 03/31/18 12:00 77 03/31/18 12:00 97.9 76 18 108/49 (68) 93 97.9 03/31/18 09:00 Room Air 03/31/18 08:33 107/59 03/31/18 08:00 80 03/31/18 08:00 99.5 75 18 107/59 (75) 94 99.5 03/31/18 07:51 84 20 96 Room Air 21 03/31/18 07:51 Room Air 21 03/31/18 04:23 98.2 89 18 125/56 (79) 95 98.2 03/31/18 04:00 88 9/6/18 01:40 88 20 98 Room Air 21 03/31/18 01:30 88 20 95 Room Air 21 03/31/18 00:29 97.5 91 17 133/60 (84) 93 97.5 03/31/18 00:00 93 Height (Feet): 5 Height (Inches): 2.00 Weight (Pounds): 147 General Appearance: WD/WN, no acute distress HEENT: normocephalic, atraumatic, anicteric, mucous membranes moist, PERRL Respiratory/Chest: chest wall non-tender, no respiratory distress, no accessory muscle use, decreased breath sounds, expiratory wheezing Cardiovascular: normal peripheral pulses, normal rate, regular rhythm, no gallop/murmur, no JVD Abdomen: normal bowel sounds, soft, non tender, no organomegaly, non distended , no mass, no scars Genitourinary: normal external genitalia Extremities: no cyanosis, no clubbing Skin: no rash, no lesions, no ulcers Neurologic/Psychiatric: alert, oriented x 3, responsive Laboratory Tests Test 03/31/18 06:20 White Blood Count 16.6 K/UL (4.8-10.8) H Red Blood Count 3.77 M/UL (4.20-5.40) L Hemoglobin 11.0 G/DL (12.0-16.0) L Hematocrit 32.5 % (37.0-47.0) L Mean Corpuscular Volume 86 FL (80-99) Mean Corpuscular Hemoglobin 29.3 PG (27.0-31.0) Mean Corpuscular Hemoglobin Concent 33.9 G/DL (32.0-36.0) Red Cell Distribution Width 12.7 % (11.6-14.8) Platelet Count 245 K/UL (150-450) Mean Platelet Volume 5.8 FL (6.5-10.1) L Neutrophils (%) (Auto) 82.8 % (45.0-75.0) H Lymphocytes (%) (Auto) 11.3 % (20.0-45.0) L Monocytes (%) (Auto) 5.1 % (1.0-10.0) Eosinophils (%) (Auto) 0.3 % (0.0-3.0) Basophils (%) (Auto) 0.4 % (0.0-2.0) Sodium Level 137 MMOL/L (136-145) Potassium Level 3.7 MMOL/L (3.5-5.1) Chloride Level 104 MMOL/L (98-107) Carbon Dioxide Level 25 MMOL/L (21-32) Anion Gap 8 mmol/L (5-15) Blood Urea Nitrogen 16 mg/dL (7-18) Creatinine 1.1 MG/DL (0.55-1.30) Estimat Glomerular Filtration Rate mL/min (>60) Glucose Level 127 MG/DL (74-106) H Calcium Level 8.6 MG/DL (8.5-10.1) Current Medications Medications (Trade) Dose Ordered Sig/Delores Route PRN Reason Start Time Stop Time Status Last Admin Dose Admin Acetaminophen (Tylenol) 650 mg Q4H PRN ORAL Mild Pain (Pain Scale 1-3) 03/30/18 13:21 04/29/18 13:20 Albuterol/ Ipratropium (Albuterol/ Ipratropium) 3 ml Q6HRT HHN 03/30/18 19:00 04/04/18 18:59 03/31/18 19:07 Carbidopa/Levodopa (Sinemet 25/100) 1 tab THREE TIMES A DAY ORAL 03/30/18 18:00 04/29/18 17:59 03/31/18 18:28 Dextrose (Dextrose 50%) 25 ml STAT PRN IV Hypoglycemia 03/30/18 17:15 04/29/18 17:14 Dextrose (Dextrose 50%) 50 ml STAT PRN IV Hypoglycemia 03/30/18 17:15 04/29/18 17:14 Diphenhydramine HCl (Benadryl) 25 mg Q6H PRN ORAL Itching/Pruritis 03/30/18 13:21 04/29/18 13:20 03/30/18 22:27 Docusate Sodium (Colace) 100 mg EVERY 12 HOURS ORAL 03/30/18 21:00 04/29/18 20:59 03/31/18 08:33 Enoxaparin Sodium (Lovenox) 40 mg Q24H SUBQ 03/31/18 09:00 04/30/18 08:59 03/31/18 08:38 Famotidine (Pepcid) 40 mg DAILY ORAL 03/31/18 09:00 04/30/18 08:59 03/31/18 08:33 Haloperidol Lactate (Haldol) 5 mg Q6H PRN IM Agitation 03/31/18 10:45 04/30/18 10:44 Insulin Aspart (NovoLOG) BEFORE MEALS AND HS SUBQ 03/30/18 21:00 04/29/18 20:59 03/31/18 21:03 Levofloxacin (Levaquin) 250 mg DAILY ORAL 03/31/18 09:00 04/07/18 08:59 03/31/18 08:49 Levothyroxine Sodium (Synthroid) 50 mcg DAILY@0630 ORAL 03/31/18 06:30 04/30/18 06:29 03/31/18 06:26 Lisinopril (Zestril) 20 mg DAILY ORAL 03/31/18 09:00 04/30/18 08:59 03/31/18 08:33 Lorazepam (Ativan 2mg/ml 1ml) 1 mg Q4H PRN IM anxiety 03/31/18 10:45 04/07/18 10:44 Prednisone (predniSONE) 10 mg DAILY ORAL 03/31/18 09:00 04/30/18 08:59 03/31/18 08:34 Quetiapine Fumarate (SEROquel) 50 mg TID ORAL 03/31/18 18:00 04/30/18 17:59 Sitagliptin Phosphate (Januvia) 100 mg ACBREAKFAST ORAL 03/31/18 06:30 04/30/18 06:29 03/31/18 06:26 Dustin Garg M.D. Mar 31, 2018 21:46
[2018-04-01] VITALS: BP 107/57
[2018-04-01] MEDS: Albuterol/Ipratropium 3ml neb HHN SCH ×3 (01:05→12:44)
[2018-04-01 04:00] VITALS: BP 113/60
[2018-04-01] MEDS: NovoLOG Insulin Flexpen SUBQ SCH ×2 (05:50→11:55)
[2018-04-01 07:43] LABS: HEMATOCRIT 32.7 % (37.0-47.0); HEMOGLOBIN 10.8 G/DL (12.0-16.0); MEAN CORPUSCULAR VOLUME 87 FL (80-99); PLATELET COUNT 240 K/UL (150-450); RED BLOOD COUNT 3.75 M/UL (4.20-5.40); WHITE BLOOD COUNT 11.9 K/UL (4.8-10.8)
[2018-04-01 08:00] VITALS: BP 116/64
[2018-04-01 08:07] LABS: ANION GAP 9 mmol/L (5-15); BLOOD UREA NITROGEN 19 mg/dL (7-18); CALCIUM 8.8 MG/DL (8.5-10.1); CARBON DIOXIDE 24 MMOL/L (21-32); CHLORIDE 107 MMOL/L (98-107); CREATININE 1.1 MG/DL (0.55-1.30); POTASSIUM 3.8 MMOL/L (3.5-5.1); SODIUM 140 MMOL/L (136-145)
--- NOTE | 2018-04-01 08:44 | Nephrology Progress Note ---
Assessment/Plan Assessment/Plan A/P 1) BROWN- resolved, Cr 1.1 2) HCAP- on levaquin. Appreciate ID assistance - DC today on 1 week Levaquin 3) COPD Exac- appreciate pulm assistance 4) DVT prophylaxisis- lovenox 5) DM- on ISS and oral agents Patient mental status back to baseline. She became very somnolent with anxiolytics and anti-psy. Prefer to avoid these medications Patient has outpt PT already arranged DC today once cleared by ID and Pulm Subjective Date patient seen: Apr 01, 2018 Time patient seen: 08:40 ROS Limited/Unobtainable: No Allergies: Coded Allergies: No Known Allergies (Unverified , 08/07/17) All Systems: reviewed and negative except above Subjective Patient breathing much improved. DC today Objective Last 24 Hour Vital Signs Date Time Temp Pulse Resp B/P (MAP) Pulse Ox O2 Delivery O2 Flow Rate FiO2 04/01/18 07:55 75 20 97 Room Air 04/01/18 07:51 Room Air 04/01/18 07:51 93 21 04/01/18 07:48 73 22 93 Room Air 04/01/18 04:00 97.2 80 18 113/60 (77) 97 97.2 04/01/18 04:00 81 04/01/18 01:20 98 Nasal Cannula 2.0 28 04/01/18 01:20 Nasal Cannula 2.0 28 04/01/18 01:19 65 22 98 Nasal Cannula 2.0 28 04/01/18 01:07 69 24 89 Room Air 04/01/18 00:00 68 04/01/18 00:00 97.7 70 18 107/57 (74) 94 97.7 03/31/18 21:00 Room Air 03/31/18 20:00 97.2 84 17 100/46 (64) 93 97.2 03/31/18 20:00 66 03/31/18 19:24 72 20 95 Room Air 03/31/18 19:09 68 22 93 Room Air 21 03/31/18 16:00 88 03/31/18 16:00 97.7 84 18 104/56 (72) 93 97.7 03/31/18 13:33 71 20 99 Room Air 03/31/18 13:25 70 20 95 Room Air 21 03/31/18 12:00 77 03/31/18 12:00 97.9 76 18 108/49 (68) 93 97.9 03/31/18 09:00 Room Air Intake and Output 03/31/18 04/01/18 19:00 07:00 Intake Total 360 ml Balance 360 ml Intake Oral 360 ml # Voids 3 # Bowel Movements 1 Laboratory Tests 04/01/18 04:00: White Blood Count 11.9H, Red Blood Count 3.75L, Hemoglobin 10.8L, Hematocrit 32.7L, Mean Corpuscular Volume 87, Mean Corpuscular Hemoglobin 28.8, Mean Corpuscular Hemoglobin Concent 33.0, Red Cell Distribution Width 13.0, Platelet Count 240, Mean Platelet Volume 6.1L, Neutrophils (%) (Auto) , Lymphocytes (%) ( Auto) , Monocytes (%) (Auto) , Eosinophils (%) (Auto) , Basophils (%) (Auto) , Neutrophils % (Manual) [Pending], Lymphocytes % (Manual) [Pending], Platelet Estimate [Pending], Platelet Morphology [Pending] 04/01/18 06:30: Sodium Level 140, Potassium Level 3.8, Chloride Level 107, Carbon Dioxide Level 24, Anion Gap 9, Blood Urea Nitrogen 19H, Creatinine 1.1, Estimat Glomerular Filtration Rate , Glucose Level 180H, Calcium Level 8.8 Height (Feet): 5 Height (Inches): 2.00 Weight (Pounds): 147 General Appearance: WD/WN, no apparent distress EENT: normal ENT inspection Neck: normal alignment, supple Cardiovascular: normal rate, regular rhythm Respiratory/Chest: lungs clear, normal breath sounds Abdomen: non tender, soft Edema: no edema noted Arm (L), no edema noted Arm (R), no edema noted Leg (L), no edema noted Leg (R), no edema noted Pedal (L), no edema noted Pedal (R), no edema noted Generalized Asa Reynolds MD Apr 01, 2018 08:44
--- NOTE | 2018-04-01 08:48 | Discharge Instructions ---
Discharge Instructions Discharge Instructions Services at Discharge: day care Diet: 2 GM sodium (low sodium) Resume Normal Activity?: Yes Activity: light activity Follow Up Orders DC today on 1 week of Levaquin Once Abx completed recc FLU vaccine and PNA vacc Continue outpt PT For Congestive Heart Failure Reminder Report to your physician any weight gain of 5 pounds or more in one week. Asa Reynolds MD Apr 01, 2018 08:48
--- NOTE | 2018-04-01 08:50 | Pulmonology Progress Note ---
Assessment/Plan Assessment/Plan IMPRESSION COPD with exacerbation bronchospasm wheeze dementia ARF ?pulmonary fibrosis PLAN avoid positive fluid balance antibiotics noted respiratory care IV steroids- discontinued on prednisone DVT prophylaxis taper oxygen dc planning impression, plan, and exam edited and reviewed in detail care discussed with RN Subjective Allergies: Coded Allergies: No Known Allergies (Unverified , 08/07/17) Subjective confused pleasant; no distress NAD Objective Last 24 Hour Vital Signs Date Time Temp Pulse Resp B/P (MAP) Pulse Ox O2 Delivery O2 Flow Rate FiO2 04/01/18 08:00 98.2 83 18 116/64 (81) 97 98.2 04/01/18 07:55 75 20 97 Room Air 21 04/01/18 07:51 Room Air 21 04/01/18 07:51 93 21 04/01/18 07:48 73 22 93 Room Air 21 04/01/18 04:00 97.2 80 18 113/60 (77) 97 97.2 04/01/18 04:00 81 04/01/18 01:20 98 Nasal Cannula 2.0 28 04/01/18 01:20 Nasal Cannula 2.0 28 04/01/18 01:19 65 22 98 Nasal Cannula 2.0 28 04/01/18 01:07 69 24 89 Room Air 21 04/01/18 00:00 68 04/01/18 00:00 97.7 70 18 107/57 (74) 94 97.7 03/31/18 21:00 Room Air 03/31/18 20:00 97.2 84 17 100/46 (64) 93 97.2 03/31/18 20:00 66 03/31/18 19:24 72 20 95 Room Air 21 03/31/18 19:09 68 22 93 Room Air 21 03/31/18 16:00 88 03/31/18 16:00 97.7 84 18 104/56 (72) 93 97.7 03/31/18 13:33 71 20 99 Room Air 21 03/31/18 13:25 70 20 95 Room Air 21 03/31/18 12:00 77 03/31/18 12:00 97.9 76 18 108/49 (68) 93 97.9 03/31/18 09:00 Room Air Intake and Output 03/31/18 04/01/18 19:00 07:00 Intake Total 360 ml Balance 360 ml Intake Oral 360 ml # Voids 3 # Bowel Movements 1 Objective WDWN NAD reduced breath sounds bilaterally with basilar crackles, improved; no wheeze [id number] without MRG NABS nontender no HSM; no distention no CCE pleasant and confused nonfocal Microbiology Date/Time Source Procedure Growth Status 03/30/18 11:02 Blood Blood Culture - Preliminary NO GROWTH AFTER 24 HOURS Resulted 03/30/18 11:02 Blood Blood Culture - Preliminary NO GROWTH AFTER 24 HOURS Resulted Laboratory Tests 04/01/18 04:00: White Blood Count 11.9H, Red Blood Count 3.75L, Hemoglobin 10.8L, Hematocrit 32.7L, Mean Corpuscular Volume 87, Mean Corpuscular Hemoglobin 28.8, Mean Corpuscular Hemoglobin Concent 33.0, Red Cell Distribution Width 13.0, Platelet Count 240, Mean Platelet Volume 6.1L, Neutrophils (%) (Auto) , Lymphocytes (%) ( Auto) , Monocytes (%) (Auto) , Eosinophils (%) (Auto) , Basophils (%) (Auto) , Neutrophils % (Manual) [Pending], Lymphocytes % (Manual) [Pending], Platelet Estimate [Pending], Platelet Morphology [Pending] 04/01/18 06:30: Sodium Level 140, Potassium Level 3.8, Chloride Level 107, Carbon Dioxide Level 24, Anion Gap 9, Blood Urea Nitrogen 19H, Creatinine 1.1, Estimat Glomerular Filtration Rate , Glucose Level 180H, Calcium Level 8.8 Current Medications Medications (Trade) Dose Ordered Sig/Delores Route PRN Reason Start Time Stop Time Status Last Admin Dose Admin Acetaminophen (Tylenol) 650 mg Q4H PRN ORAL Mild Pain (Pain Scale 1-3) 03/30/18 13:21 04/29/18 13:20 Albuterol/ Ipratropium (Albuterol/ Ipratropium) 3 ml Q6HRT HHN 03/30/18 19:00 04/04/18 18:59 04/01/18 07:48 Carbidopa/Levodopa (Sinemet 25/100) 1 tab THREE TIMES A DAY ORAL 03/30/18 18:00 04/29/18 17:59 03/31/18 18:28 Dextrose (Dextrose 50%) 25 ml STAT PRN IV Hypoglycemia 03/30/18 17:15 04/29/18 17:14 Dextrose (Dextrose 50%) 50 ml STAT PRN IV Hypoglycemia 03/30/18 17:15 04/29/18 17:14 Diphenhydramine HCl (Benadryl) 25 mg Q6H PRN ORAL Itching/Pruritis 03/30/18 13:21 04/29/18 13:20 03/30/18 22:27 Docusate Sodium (Colace) 100 mg EVERY 12 HOURS ORAL 03/30/18 21:00 04/29/18 20:59 03/31/18 08:33 Enoxaparin Sodium (Lovenox) 40 mg Q24H SUBQ 03/31/18 09:00 04/30/18 08:59 03/31/18 08:38 Famotidine (Pepcid) 40 mg DAILY ORAL 03/31/18 09:00 04/30/18 08:59 03/31/18 08:33 Haloperidol Lactate (Haldol) 5 mg Q6H PRN IM Agitation 03/31/18 10:45 04/30/18 10:44 Insulin Aspart (NovoLOG) BEFORE MEALS AND HS SUBQ 03/30/18 21:00 04/29/18 20:59 04/01/18 05:50 Levofloxacin (Levaquin) 250 mg DAILY ORAL 03/31/18 09:00 04/07/18 08:59 03/31/18 08:49 Levothyroxine Sodium (Synthroid) 50 mcg DAILY@0630 ORAL 03/31/18 06:30 04/30/18 06:29 04/01/18 05:49 Lisinopril (Zestril) 20 mg DAILY ORAL 03/31/18 09:00 04/30/18 08:59 03/31/18 08:33 Lorazepam (Ativan 2mg/ml 1ml) 1 mg Q4H PRN IM anxiety 03/31/18 10:45 04/07/18 10:44 Prednisone (predniSONE) 10 mg DAILY ORAL 03/31/18 09:00 04/30/18 08:59 03/31/18 08:34 Quetiapine Fumarate (SEROquel) 50 mg TID ORAL 03/31/18 18:00 04/30/18 17:59 Sitagliptin Phosphate (Januvia) 100 mg ACBREAKFAST ORAL 9/6/18 06:30 04/30/18 06:29 04/01/18 05:49 Renny Emerson MD Apr 01, 2018 08:50
[2018-04-01] MEDS: Levodopa/Carbidopa 25/100 tab ORAL SCH ×2 (09:30→13:24)
[2018-04-01] MEDS: Docusate 100mg cap ORAL SCH (09:30)
[2018-04-01] MEDS: Lisinopril 10mg tab ORAL SCH (09:31)
[2018-04-01] MEDS: Enoxaparin 40mg Inj SUBQ SCH (09:32)
[2018-04-01 12:00] VITALS: BP 105/57
--- NOTE | 2018-04-01 12:40 | General Progress Note ---
Assessment/Plan Status: stable Assessment/Plan encephalopathy due to [facility] [place] Agitation -start seroquel 50mg tid -haldol im prn -ativan im prn Subjective Date patient seen: Apr 01, 2018 Neurologic/Psychiatric: Reports: anxiety, depressed, emotional problems Allergies: Coded Allergies: No Known Allergies (Unverified , 08/07/17) Objective Last 24 Hour Vital Signs Date Time Temp Pulse Resp B/P (MAP) Pulse Ox O2 Delivery O2 Flow Rate FiO2 04/01/18 12:00 98.6 87 17 105/57 (73) 94 98.6 04/01/18 09:31 116/64 04/01/18 08:09 83 04/01/18 08:00 98.2 83 18 116/64 (81) 97 98.2 04/01/18 07:55 75 20 97 Room Air 04/01/18 07:51 Room Air 04/01/18 07:51 93 21 04/01/18 07:48 73 22 93 Room Air 04/01/18 04:00 97.2 80 18 113/60 (77) 97 97.2 04/01/18 04:00 81 04/01/18 01:20 98 Nasal Cannula 2.0 28 04/01/18 01:20 Nasal Cannula 2.0 28 04/01/18 01:19 65 22 98 Nasal Cannula 2.0 28 04/01/18 01:07 69 24 89 Room Air 21 04/01/18 00:00 68 04/01/18 00:00 97.7 70 18 107/57 (74) 94 97.7 03/31/18 21:00 Room Air 03/31/18 20:00 97.2 84 17 100/46 (64) 93 97.2 03/31/18 20:00 66 03/31/18 19:24 72 20 95 Room Air 21 03/31/18 19:09 68 22 93 Room Air 21 03/31/18 16:00 88 03/31/18 16:00 97.7 84 18 104/56 (72) 93 97.7 03/31/18 13:33 71 20 99 Room Air 21 03/31/18 13:25 70 20 95 Room Air 21 Intake and Output 03/31/18 04/01/18 19:00 07:00 Intake Total 360 ml Balance 360 ml Intake Oral 360 ml # Voids 3 # Bowel Movements 1 Laboratory Tests 04/01/18 04:00: White Blood Count 11.9H, Red Blood Count 3.75L, Hemoglobin 10.8L, Hematocrit 32.7L, Mean Corpuscular Volume 87, Mean Corpuscular Hemoglobin 28.8, Mean Corpuscular Hemoglobin Concent 33.0, Red Cell Distribution Width 13.0, Platelet Count 240, Mean Platelet Volume 6.1L, Neutrophils (%) (Auto) , Lymphocytes (%) ( Auto) , Monocytes (%) (Auto) , Eosinophils (%) (Auto) , Basophils (%) (Auto) , Differential Total Cells Counted 100, Neutrophils % (Manual) 87H, Lymphocytes % (Manual) 7L, Monocytes % (Manual) 4, Eosinophils % (Manual) 2, Basophils % ( Manual) 0, Band Neutrophils 0, Platelet Estimate Adequate, Platelet Morphology Normal, Red Blood Cell Morphology Normal 04/01/18 06:30: Sodium Level 140, Potassium Level 3.8, Chloride Level 107, Carbon Dioxide Level 24, Anion Gap 9, Blood Urea Nitrogen 19H, Creatinine 1.1, Estimat Glomerular Filtration Rate , Glucose Level 180H, Calcium Level 8.8 Height (Feet): 5 Height (Inches): 2.00 Weight (Pounds): 147 General Appearance: WD/WN, no apparent distress, alert, confused Neurologic: alert Eleni Reyes MD Apr 01, 2018 12:40
[2018-04-01] MEDS ORDERED: LEVAQUIN250 M1 ORAL (14:07)
--- NOTE | 2018-04-01 14:32 | Infectious Diseases Prog Note ---
Assessment/Plan Problems: (1) CAP (community acquired pneumonia) Assessment & Plan: continue levaquin for 5-7 days depending on clinical improvement , consider vaccination for influenza (2) COPD exacerbation Assessment & Plan: due to the above, continue nebulizers and steroids (3) Diabetes mellitus Assessment & Plan: recommend tight glycemic control to keep blood glucose between 100-140 (4) Dizziness Assessment & Plan: rule out TUBE TURNER , recommend brain image if no improvement (5) HTN (hypertension) Assessment & Plan: continue meds to keep SBP <140 Subjective Constitutional: Reports: no symptoms HEENT: Reports: no symptoms Respiratory: Reports: no symptoms Breasts: Reports: no symptoms Cardiovascular: Reports: no symptoms Gastrointestinal/Abdominal: Reports: no symptoms Genitourinary: Reports: no symptoms Neurologic: Reports: no symptoms Psychiatric: Reports: no symptoms Skin: Reports: no symptoms Endocrine: Reports: no symptoms Hematologic: Reports: no symptoms Musculoskeletal: Reports: no symptoms Allergies: Coded Allergies: No Known Allergies (Unverified , 08/07/17) Objective Vital Signs Last 24 Hour Vital Signs Date Time Temp Pulse Resp B/P (MAP) Pulse Ox O2 Delivery O2 Flow Rate FiO2 04/01/18 12:52 70 20 98 Nasal Cannula 28 04/01/18 12:44 71 20 95 Nasal Cannula 2.0 04/01/18 12:00 98.6 87 17 105/57 (73) 94 98.6 04/01/18 09:31 116/64 04/01/18 08:10 Room Air 04/01/18 08:09 83 04/01/18 08:00 98.2 83 18 116/64 (81) 97 98.2 04/01/18 07:55 75 20 97 Nasal Cannula 2.0 04/01/18 07:51 Room Air 04/01/18 07:51 93 21 04/01/18 07:48 73 22 93 Room Air 04/01/18 04:00 97.2 80 18 113/60 (77) 97 97.2 04/01/18 04:00 81 04/01/18 01:20 98 Nasal Cannula 2.0 28 04/01/18 01:20 Nasal Cannula 2.0 28 04/01/18 01:19 65 22 98 Nasal Cannula 2.0 04/01/18 01:07 69 24 89 Room Air 04/01/18 00:00 68 04/01/18 00:00 97.7 70 18 107/57 (74) 94 97.7 03/31/18 21:00 Room Air 03/31/18 20:00 97.2 84 17 100/46 (64) 93 97.2 03/31/18 20:00 66 03/31/18 19:24 72 20 95 Room Air 21 03/31/18 19:09 68 22 93 Room Air 21 03/31/18 16:00 88 03/31/18 16:00 97.7 84 18 104/56 (72) 93 97.7 Height (Feet): 5 Height (Inches): 2.00 Weight (Pounds): 147 General Appearance: WD/WN, no acute distress HEENT: normocephalic, atraumatic, anicteric, mucous membranes moist Respiratory/Chest: chest wall non-tender, normal breath sounds, no respiratory distress, no accessory muscle use, decreased breath sounds, crackles/rales Cardiovascular: normal peripheral pulses, normal rate, regular rhythm, no gallop/murmur, no JVD Abdomen: normal bowel sounds, soft, non tender, no organomegaly, non distended , no mass, no scars Extremities: no cyanosis, no clubbing Skin: no rash, no lesions, no ulcers Neurologic/Psychiatric: alert, oriented x 3 Lymphatic: no neck adenopathy, no groin adenopathy Microbiology Date/Time Source Procedure Growth Status 03/30/18 11:02 Blood Blood Culture - Preliminary NO GROWTH AFTER 24 HOURS Resulted 03/30/18 11:02 Blood Blood Culture - Preliminary NO GROWTH AFTER 24 HOURS Resulted Laboratory Tests Test 04/01/18 04:00 04/01/18 06:30 White Blood Count 11.9 K/UL (4.8-10.8) H Red Blood Count 3.75 M/UL (4.20-5.40) L Hemoglobin 10.8 G/DL (12.0-16.0) L Hematocrit 32.7 % (37.0-47.0) L Mean Corpuscular Volume 87 FL (80-99) Mean Corpuscular Hemoglobin 28.8 PG (27.0-31.0) Mean Corpuscular Hemoglobin Concent 33.0 G/DL (32.0-36.0) Red Cell Distribution Width 13.0 % (11.6-14.8) Platelet Count 240 K/UL (150-450) Mean Platelet Volume 6.1 FL (6.5-10.1) L Neutrophils (%) (Auto) % (45.0-75.0) Lymphocytes (%) (Auto) % (20.0-45.0) Monocytes (%) (Auto) % (1.0-10.0) Eosinophils (%) (Auto) % (0.0-3.0) Basophils (%) (Auto) % (0.0-2.0) Differential Total Cells Counted 100 Neutrophils % (Manual) 87 % (45-75) H Lymphocytes % (Manual) 7 % (20-45) L Monocytes % (Manual) 4 % (1-10) Eosinophils % (Manual) 2 % (0-3) Basophils % (Manual) 0 % (0-2) Band Neutrophils 0 % (0-8) Platelet Estimate Adequate Platelet Morphology Normal Red Blood Cell Morphology Normal Sodium Level 140 MMOL/L (136-145) Potassium Level 3.8 MMOL/L (3.5-5.1) Chloride Level 107 MMOL/L (98-107) Carbon Dioxide Level 24 MMOL/L (21-32) Anion Gap 9 mmol/L (5-15) Blood Urea Nitrogen 19 mg/dL (7-18) H Creatinine 1.1 MG/DL (0.55-1.30) Estimat Glomerular Filtration Rate mL/min (>60) Glucose Level 180 MG/DL (74-106) H Calcium Level 8.8 MG/DL (8.5-10.1) Current Medications Medications (Trade) Dose Ordered Sig/Delores Route PRN Reason Start Time Stop Time Status Last Admin Dose Admin Acetaminophen (Tylenol) 650 mg Q4H PRN ORAL Mild Pain (Pain Scale 1-3) 03/30/18 13:21 04/29/18 13:20 Albuterol/ Ipratropium (Albuterol/ Ipratropium) 3 ml Q6HRT HHN 03/30/18 19:00 04/04/18 18:59 04/01/18 12:44 Carbidopa/Levodopa (Sinemet 25/100) 1 tab THREE TIMES A DAY ORAL 03/30/18 18:00 04/29/18 17:59 04/01/18 13:24 Dextrose (Dextrose 50%) 25 ml STAT PRN IV Hypoglycemia 03/30/18 17:15 04/29/18 17:14 Dextrose (Dextrose 50%) 50 ml STAT PRN IV Hypoglycemia 03/30/18 17:15 04/29/18 17:14 Diphenhydramine HCl (Benadryl) 25 mg Q6H PRN ORAL Itching/Pruritis 03/30/18 13:21 04/29/18 13:20 03/30/18 22:27 Docusate Sodium (Colace) 100 mg EVERY 12 HOURS ORAL 03/30/18 21:00 04/29/18 20:59 04/01/18 09:30 Enoxaparin Sodium (Lovenox) 40 mg Q24H SUBQ 03/31/18 09:00 04/30/18 08:59 04/01/18 09:32 Famotidine (Pepcid) 40 mg DAILY ORAL 03/31/18 09:00 04/30/18 08:59 04/01/18 09:30 Haloperidol Lactate (Haldol) 5 mg Q6H PRN IM Agitation 03/31/18 10:45 04/30/18 10:44 Insulin Aspart (NovoLOG) BEFORE MEALS AND HS SUBQ 03/30/18 21:00 04/29/18 20:59 04/01/18 11:55 Levofloxacin (Levaquin) 250 mg DAILY ORAL 03/31/18 09:00 04/07/18 08:59 04/01/18 09:31 Levothyroxine Sodium (Synthroid) 50 mcg DAILY@0630 ORAL 03/31/18 06:30 04/30/18 06:29 04/01/18 05:49 Lisinopril (Zestril) 20 mg DAILY ORAL 03/31/18 09:00 04/30/18 08:59 04/01/18 09:31 Lorazepam (Ativan 2mg/ml 1ml) 1 mg Q4H PRN IM anxiety 03/31/18 10:45 04/07/18 10:44 Prednisone (predniSONE) 10 mg DAILY ORAL 03/31/18 09:00 04/30/18 08:59 04/01/18 09:30 Quetiapine Fumarate (SEROquel) 50 mg TID ORAL 03/31/18 18:00 04/30/18 17:59 04/01/18 13:24 Sitagliptin Phosphate (Januvia) 100 mg ACBREAKFAST ORAL 03/31/18 06:30 04/30/18 06:29 04/01/18 05:49 Dustin Garg M.D. Apr 01, 2018 14:32
--- NOTE | 2018-04-03 13:15 | Discharge Summary ---
Discharge Summary Discharge Summary _ DATE OF ADMISSION: 03/30/2018 DATE OF DISCHARGE: 04/01/2018 REASON FOR ADMISSION: 87 years old female with past medical history of hypertension, diabetes ,COPD , dementia , was brought by family member for evaluation. Patient had difficulty breathing, nonproductive cough, and decreased appetite. Patient was given inhaler therapy at home without significant improvement. Upon evaluation in emergency department, patient was giving hand-held nebulizing therapy with some improvement . Loading dose of steroid provided. Vital signs were stable : no fever. pulse oximetry was 91% on room air. WBC - 21.0, stable hemoglobin and hematocrit. Lactic acid 2.9. ProBNP 1135. BUN 17 creatinine 1.4. Glucose 165. Troponin negative. Urinalysis showed no evidence of UTI. Chest X-ray revealed cardiomegaly with mild interstitial congestion and retrocardiac consolidation. Patient admitted for further management with diagnoses of COPD exacerbation, community-acquired pneumonia, acute kidney injury, diabetes mellitus,. CONSULTANTS: pulmonary Dr. Emerson ID specialist Dr. Garg psychiatrist [facility] COURSE: Patient admitted. Patient started on empiric antibiotic. Supplemental oxygen provided as needed and titrated to keep pulse oximetry above 92%. Pulmonary toilet provided around the clock and as needed. Patient started on IV steroids,, which tapered and changed to oral prednisone upon discharge. Cannoneer and ID specialist closely followed. DVT prophylaxis provided. Blood culture were negative. Infectious disease specialist recommended to continue antibiotic for one week as outpatient. Leukocytosis trended down to 11.9 prior to discharge. Patient initially placed on IV fluids. Acute kidney injury was likely secondary to volume depletion. Renal parameters and electrolytes were closely monitored, electrolytes were corrected as needed, and nephrotoxins were avoided. Acute kidney injury resolved. IV fluids discontinued. Blood sugar was managed with oral anti-glycemic and sliding scale of insulin as needed .Blood sugar remained stable. Blood pressure was managed with current regimen of HORTENCIA inhibitor and remained stable. DVT and GI prophylaxis provided. Home medications continued. Psychiatrist seen and evaluated patient, and diagnosed patient with encephalopathy secondary to general medical condition . Patient started on Seroquel, however Seroquel made patient somnolent . Per attending physician, psychiatric medications were stopped. Mental status came back to baseline ; acute encephalopathy was likely due to acute medical condition, and resolved as patient clinically improved. . 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 DISCHARGE INSTRUCTIONS: Patient was discharged home. Follow up with primary care provider in one week. I have been assigned to dictate discharge summary for this account. I was not involved in the patient's management. Diane Mcnally NP Apr 03, 2018 13:15
== END 2018-04-01 15:35 | disposition home or self-care (01) | DRG 140 ==
LOC: EMR 10:35 → EDBEDREQ 11:14 → 2E 11:28 → EDBEDREQ 14:11 → 2E 17:22
DX: J44.0 Chronic obstructive pulmonary disease with (acute) lower respiratory infection (principal); J18.9 Pneumonia, unspecified organism; G93.40 Encephalopathy, unspecified; N17.9 Acute kidney failure, unspecified; J84.10 Pulmonary fibrosis, unspecified; E86.0 Dehydration; E11.9 Type 2 diabetes mellitus without complications; F03.90 Unspecified dementia, unspecified severity, without behavioral disturbance, psychotic disturbance, mood disturbance, and anxiety; J44.1 Chronic obstructive pulmonary disease with (acute) exacerbation; I10 Essential (primary) hypertension; E78.5 Hyperlipidemia, unspecified; R42 Dizziness and giddiness; R45.1 Restlessness and agitation
CPT/HCPCS: 36415; 71045; 80048; 80053; 81003; 83605; 83880; 84484; 85007; 85025; 87040; 93005; 94640; 94664; 94760; 99285; J1815; J7620

== ENCOUNTER 2019-09-16 12:59 | Emergency (ER) | payer MEDICARE, MEDICAID ==
[~2019-09-16] VITALS: Ht 160 cm; Wt 59.9 kg
[~2019-09-16 12:59] MED LIST changes: +AMLODIPINE BESY10 MG ORAL; +BREO ELLIPTA 11 EACH IH; +JANUVIA100 MG ORAL; +LEVAQUIN250 M1 ORAL; +SINEMET 10/100 T1 EA ORAL; +VENTOLIN HFA18 GM INH
[2019-09-16 13:05] VITALS: BP 130/84
--- NOTE | 2019-09-16 13:05 | NUR ---
ED Nurse Note: Pt brought in by daughter, ambulatory, c/o rash on abdomen and back since yesterday. Pt has been seen and given medication for the rash with no relief. Respirations even and unlabored on room air. Vitals stable as documented.
[2019-09-16] MEDS ORDERED: SINEMET 25-1001 EAC1 ORAL (13:12)
[2019-09-16] MEDS ORDERED: LISINOPRIL20 MG ORAL (13:12)
[2019-09-16] MEDS ORDERED: SYNTHROID137 MCG ORAL (13:12)
--- NOTE | 2019-09-16 13:27 | Emergency Room Report ---
History of Present Illness General Chief Complaint: Skin Rash/Abscess Present Illness HPI 88-year-old female with history of type 2 diabetes controlled, and all liver disease all controlled and up-to-date with her visits with primary doctor, currently living in assisted living, here with her daughter due to a painful rash on the right side of abdomen mid back. Daughter reports that she just noticed the rash today as she does not live with the patient. Patient has a stable vital sign, denies fever and chills. Patient daughter complains of patient has been having slight cough for the past few days. Denies chest pain and chest pain radiation. Daughter is requesting a full work-up on patient however patient is stable and only here for rash. I explained that the patient is experiencing pain upon palpation of the rash due to being diagnosed with shingles and shingles is a virus that affects the nerve endings and elicits pain. It does not mean that the pain is internal. Patient to follow with primary doctor. Denies nausea vomiting. (Arun Steel) Allergies: Coded Allergies: No Known Allergies (Unverified , 08/07/17) Patient History Past Medical History: see triage record Past Surgical History: unable to obtain Pertinent Family History: none Now: No Immunizations: UTD Reviewed Nursing Documentation: PMH: Agreed; PSxH: Agreed (Arun Steel) Nursing Documentation-PMH Hx Cardiac Problems: Yes - Thyroid Hx Hypertension: Yes Hx Asthma: Yes Hx Diabetes: Yes Hx Cancer: No Hx Gastrointestinal Problems: No Hx Neurological Problems: Yes - Alzheimer's disease Hx Dementia: Yes Hx Alzheimer's Disease: Yes Hx Parkinson's Disease: Yes Hx Neurologic Surgery: No (Arun Steel) Review of Systems All Other Systems: negative except mentioned in HPI (Arun Steel) Physical Exam Vital Signs Date Time Temp Pulse Resp B/P (MAP) Pulse Ox O2 Delivery O2 Flow Rate FiO2 09/16/19 13:04 99.0 93 19 130/84 (99) 97 Room Air Sp02 EP Interpretation: reviewed, normal General Appearance: no apparent distress, alert, GCS 15, non-toxic Head: normocephalic, atraumatic Eyes: bilateral eye normal inspection, bilateral eye PERRL ENT: hearing grossly normal, normal pharynx, no angioedema, normal voice Neck: full range of motion, supple/symm/no masses Respiratory: chest non-tender, lungs clear, normal breath sounds, no rhonchi, no wheezing, speaking full sentences Cardiovascular #1: regular rate, rhythm, no edema, no murmur, normal capillary refill Gastrointestinal: normal bowel sounds, non tender, soft, non-distended, no guarding, no rebound Genitourinary: no CVA tenderness Neurologic: alert, motor strength/tone normal, oriented x3, sensory intact, responsive, speech normal Psychiatric: judgement/insight normal, memory normal, mood/affect normal, no suicidal/homicidal ideation Skin: rash - Vesicular rash on erythematous base on right upper quadrant, right flank, and right mid thoracic Lymphatic: no adenopathy (Arun Steel) Medical Decision Making PA Attestation All my diagnosis and treatment plans were reviewed ad discussed with my supervising physician Dr. Chase (Arun Steel) Medicare Attestation The history of Sneha Ross has been reviewed and management options for her have been examined and discussed by Terrance Chase. I have personally examined and interviewed the patient. (Terrance Chase MD) Diagnostic Impression: Primary Impression: Shingles Additional Impressions: Cellulitis URI (upper respiratory infection) ER Course 88-year-old female with history of type 2 diabetes controlled, and all liver disease all controlled and up-to-date with her visits with primary doctor, currently living in assisted living, here with her daughter due to a painful rash on the right side of abdomen mid back. Daughter reports that she just noticed the rash today as she does not live with the patient. Patient has a stable vital sign, denies fever and chills. Patient daughter complains of patient has been having slight cough for the past few days. Denies chest pain and chest pain radiation. Daughter is requesting a full work-up on patient however patient is stable and only here for rash. I explained that the patient is experiencing pain upon palpation of the rash due to being diagnosed with shingles and shingles is a virus that affects the nerve endings and elicits pain. It does not mean that the pain is internal. Patient to follow with primary doctor. Denies nausea vomiting. Ddx considered but are not limited to: Eczema, scabies, lice, cellulitis, shingles Vital signs: are WNL, pt. is afebrile H&PE are most consistent with: Shingles, cellulitis due to patient diabetic status and scratching shingles rash, URI ORDERS: Acyclovir, Keflex, guaifenesin p.o. ED INTERVENTIONS: None required at this time. DISCHARGE: At this time pt. is stable for d/c to home. Will provide printed patient care instructions, and any necessary prescriptions. Care plan and follow up instructions have been discussed with the patient prior to discharge. At this time no x-ray necessary patient lungs are clear to auscultation, patient no distress and no work-up needed patient just had blood work by primary doctor. If worsening symptoms return to the emergency room. (Arun Steel) Last Vital Signs Date Time Temp Pulse Resp B/P (MAP) Pulse Ox O2 Delivery O2 Flow Rate FiO2 09/16/19 13:04 99.0 93 19 130/84 (99) 97 Room Air (Arun Steel) Disposition: HOME, SELF-CARE Condition: Stable Scripts Guaifenesin (Mucinex) 600 Mg Tab.er.12h 600 MG PO BID, #14 TAB Prov: Arun Steel 09/16/19 Acetaminophen* (TYLENOL EXTRA STRENGTH*) 500 Mg Tablet 500 MG ORAL Q8H PRN for Prn Headache/Temp > 101, #30 TAB 0 Refills Prov: Arun Steel 09/16/19 Cephalexin* (KEFLEX*) 500 Mg Capsule 500 MG ORAL EVERY 6 HOURS for 7 Days, #28 CAP Prov: Arun Steel 09/16/19 Acyclovir* (ZOVIRAX*) 800 Mg Tablet 800 MG ORAL FIVE TIMES A DAY for 7 Days, #35 TAB Prov: Arun Steel 09/16/19 Referrals: NOT CHOSEN IPA/MD,REFERRING (PCP) Patient Instructions: Cellulitis, [id number], Shingles, [id number], Upper Respiratory Infection, Adult, [id number] Additional Instructions: Take medication as directed, follow-up with your primary care provider, if worsening symptoms return to the emergency room Arun Steel Sep 16, 2019 13:27 Terrance Chase MD Sep 20, 2019 13:59
[2019-09-16] MEDS ORDERED: CEPHALEXIN500 MG ORAL (13:29)
[2019-09-16] MEDS ORDERED: ACYCLOVIR800 MG ORAL (13:29)
[2019-09-16] MEDS ORDERED: TYLENOL EXTRA500 MG ORAL (13:29)
[2019-09-16] MEDS ORDERED: MUCINEX600 MG PO (13:29)
[2019-09-16 13:40] VITALS: BP 132/79
--- NOTE | 2019-09-16 13:40 | NUR ---
ER DISCHARGE NOTE: Patient is cleared to be discharged per ERMD, pt is aox4, on room air, with stable vital signs. pt's daughter was given dc and prescription instructions and was able to verbalize understanding, pt id band removed. pt is able to ambulate with steady gait. pt took all belongings.
== END 2019-09-16 13:40 | disposition home or self-care (01) ==
LOC: EMR 13:21
DX: B02.9 Zoster without complications (principal); L03.90 Cellulitis, unspecified; J06.9 Acute upper respiratory infection, unspecified; E11.9 Type 2 diabetes mellitus without complications; I10 Essential (primary) hypertension; G30.9 Alzheimer's disease, unspecified; F02.80 Dementia in other diseases classified elsewhere, unspecified severity, without behavioral disturbance, psychotic disturbance, mood disturbance, and anxiety
CPT/HCPCS: 99282

== ENCOUNTER 2019-10-02 19:46 | Emergency (ER) | payer MEDICARE, MEDICAID ==
[~2019-10-02] VITALS: Ht 149.9 cm; Wt 72.6 kg
[~2019-10-02 19:46] MED LIST changes: +ACYCLOVIR800 MG ORAL; +CEPHALEXIN500 MG ORAL; +MUCINEX600 MG PO; +SINEMET 25-1001 EAC1 ORAL; +SYNTHROID137 MCG ORAL; +TYLENOL EXTRA500 MG ORAL
[2019-10-02 20:15] VITALS: BP 99/64
--- NOTE | 2019-10-02 20:15 | NUR ---
ED Nurse Note: Pt walked into ED with daughter for evaluation of shingles. Pt recently diagnosed and states she took the full course of prescribed medication. Pts daughter states she needs to be cleared in order to go back to her day care. Crusted over lesions noted under R breast. Pt is aaox4, no acute distress noted.
--- NOTE | 2019-10-02 20:34 | Emergency Room Report ---
History of Present Illness General Chief Complaint: Skin Rash/Abscess Present Illness HPI 88-year-old female brought in by lighter presents for evaluation of shingles. They are requesting a note to return her back to daycare. Patient was seen here about 2 weeks ago and was diagnosed with shingles. She has finished her course of acyclovir and Keflex. She is feeling much better and denies any pain or itching. Injection Molding Supervisor confirms that rash is improving. Allergies: Coded Allergies: No Known Allergies (Unverified , 08/07/17) Patient History Past Medical History: see triage record Reviewed Nursing Documentation: PMH: Agreed; PSxH: Agreed Nursing Documentation-PMH Hx Cardiac Problems: Yes - Thyroid Hx Hypertension: Yes Hx Asthma: Yes Hx Diabetes: Yes Hx Cancer: No Hx Gastrointestinal Problems: No Hx Neurological Problems: Yes - Alzheimer's disease Hx Dementia: Yes Hx Alzheimer's Disease: Yes Hx Parkinson's Disease: Yes Hx Neurologic Surgery: No Review of Systems All Other Systems: negative except mentioned in HPI Physical Exam Vital Signs Date Time Temp Pulse Resp B/P (MAP) Pulse Ox O2 Delivery O2 Flow Rate FiO2 10/02/19 20:06 92 16 99/64 (76) 94 Room Air Sp02 EP Interpretation: reviewed, normal General Appearance: normal inspection, well appearing, no apparent distress Skin: other - Shingles from the right lower abdomen wrapping to the right flank. Dry and crusty. No drainage. Nontender. No evidence of cellulitis. Medical Decision Making PA Attestation Dr. Bah is my supervising physician whom patient management and care has been discussed with. Diagnostic Impression: Primary Impression: Shingles Qualified Codes: B02.9 - Zoster without complications ER Course Pt. presents to the ED c/o shingles evaluation to return to daycare. Ddx considered but are not limited to shingles, shingles complications, cellulitis, SJS, TEN. Vital signs: are WNL, pt. is afebrile H&PE are most consistent with shingles ORDERS: none required at this time, the diagnosis is clinical ED INTERVENTIONS: None required at this time. DISCHARGE: At this time pt. is stable for d/c to home. Advised to wait one more week before returning to daycare to allow more time for healing. Will provide printed patient care instructions, and any necessary prescriptions. Advised to follow up outpatient in 1-2 days. Care plan and follow up instructions have been discussed with the patient prior to discharge. Last Vital Signs Date Time Temp Pulse Resp B/P (MAP) Pulse Ox O2 Delivery O2 Flow Rate FiO2 10/02/19 20:06 92 16 99/64 (76) 94 Room Air Disposition: HOME, SELF-CARE Condition: Stable Patient Instructions: Shingles, [id number] Additional Instructions: Patient can return to day care in one week. Follow up with a Primary Care Provider in 1-2 days, even if your symptoms have resolved. --Please review list of primary care clinics, if you do not already have a primary care provider Return to the emergency department sooner if new symptoms occur, or current symptoms become worse. - Please note that this Emergency Department Report was dictated using [employer] software, occasionally this can lead to erroneous entry secondary to interpretation by the dictation equipment. Denisha Miller Oct 02, 2019 20:34
[2019-10-02 20:35] VITALS: BP 102/75
--- NOTE | 2019-10-02 20:35 | NUR ---
ER DISCHARGE NOTE: Patient is cleared to be discharged per ERMD, pt is aox4, on room air, with stable vital signs. pt was given dc instructions and instructed to return to day care in one week, pt was able to verbalize understanding, pt id band removed. pt is able to ambulate with steady gait. pt took all belongings and accompanied by daughter.
== END 2019-10-02 20:35 | disposition home or self-care (01) ==
LOC: EMR 20:31
DX: B02.9 Zoster without complications (principal); I10 Essential (primary) hypertension; E11.9 Type 2 diabetes mellitus without complications; G30.9 Alzheimer's disease, unspecified; F02.80 Dementia in other diseases classified elsewhere, unspecified severity, without behavioral disturbance, psychotic disturbance, mood disturbance, and anxiety; G20 Parkinson's disease
CPT/HCPCS: 99281